=== PATIENT | female | born 1950 | race Caucasian/White ===

== ENCOUNTER → 2016-05-31 | Outpatient (REF) | payer MEDICARE, OTHER ==
[~2016-05-31] MED LIST: ACET500C; FISH1000 OR; FISHCAP; HYDR25TA6; HYDR25TA6 OR; LIDO5DIS; LIDO5DIS EX; LIPI20TA; LIPI20TA OR; LISI10TA4; LISI10TA4 OR; NEUR300C; NEUR300C OR; PAIN325T OR; PRED10TA2; SKEL800T5; SKEL800T5 OR; TYL325; TYLENOL PM; TYLENOL PM OR; VITA-56; VITA-56 OR; VITA200C; VITA500T; VITA500T OR; VITAMIN B; VITAMIN B COMPLE1; VITAMIN B COMPLE1 OR; [UNRECOGNIZED DRUG - OTHER]
[2016-05-31 13:05] LABS: ALBUMIN 4.1 GM/DL (3.2-5.2); ALBUMIN/GLOBULIN RATIO 1.52 (1.00-1.93); ALKALINE PHOSPHATASE 69 U/L (45-117); ALT/SGPT 32 U/L (12-78); ANION GAP 7 MEQ/L (8-16); AST/SGOT 23 U/L (15-37); BILIRUBIN,DIRECT < 0.1 MG/DL (0.0-0.2); BILIRUBIN,TOTAL 0.5 MG/DL (0.2-1.0); BLOOD UREA NITROGEN 14 MG/DL (7-18); CALCIUM LEVEL 9.6 MG/DL (8.8-10.2); CARBON DIOXIDE LEVEL 29 MEQ/L (21-32); CHLORIDE LEVEL 101 MEQ/L (98-107); CREATININE FOR GFR 0.73 MG/DL (0.55-1.02); GLOMERULAR FILTRATION RATE > 60.0 (>45); GLUCOSE, FASTING 122 MG/DL (80-110); PHOSPHORUS LEVEL 3.2 MG/DL (2.5-4.9); POTASSIUM SERUM 4.7 MEQ/L (3.5-5.1); SODIUM LEVEL 137 MEQ/L (136-145); TOTAL PROTEIN 6.8 GM/DL (6.4-8.2)
== END ==
LOC: M LABDRAW1 11:48
PROVIDERS: ATTEND Physician Assistant
DX: M51.36 Other intervertebral disc degeneration, lumbar region (principal)

== ENCOUNTER → 2016-08-05 | Outpatient (REF) | payer OTHER, MEDICARE ==
[2016-08-05 15:09] LABS: ANION GAP 6 MEQ/L (8-16); BLOOD UREA NITROGEN 14 MG/DL (7-18); CALCIUM LEVEL 9.7 MG/DL (8.8-10.2); CARBON DIOXIDE LEVEL 31 MEQ/L (21-32); CHLORIDE LEVEL 103 MEQ/L (98-107); CREATININE FOR GFR 0.75 MG/DL (0.55-1.02); GLOMERULAR FILTRATION RATE > 60.0 (>45); GLUCOSE, FASTING 116 MG/DL (80-110); POTASSIUM SERUM 3.8 MEQ/L (3.5-5.1); SODIUM LEVEL 140 MEQ/L (136-145)
[2016-08-05 15:10] LABS: ALBUMIN 3.9 GM/DL (3.2-5.2); ALBUMIN/GLOBULIN RATIO 1.34 (1.00-1.93); ALKALINE PHOSPHATASE 83 U/L (45-117); ALT/SGPT 40 U/L (12-78); AST/SGOT 28 U/L (15-37); BILIRUBIN,TOTAL 0.8 MG/DL (0.2-1.0); CHOLESTEROL LEVEL 190 MG/DL (<200); TOTAL PROTEIN 6.8 GM/DL (6.4-8.2); TRIGLYCERIDES LEVEL 121 MG/DL (<150)
[2016-08-05 15:11] LABS: FERRITIN 79 NG/ML (8-252); FREE T4 1.14 NG/DL (0.76-1.46); PERCENT SATURATION 36.9 % (13.2-37.4); TOTAL IRON BINDING CAPACITY 366 UG/DL (250-450)
== END ==
LOC: M SFHCPLAZ 09:23
PROVIDERS: ATTEND Family Medicine
DX: E78.2 Mixed hyperlipidemia (principal); E53.8 Deficiency of other specified B group vitamins; E55.9 Vitamin D deficiency, unspecified; G31.84 Mild cognitive impairment of uncertain or unknown etiology

== ENCOUNTER → 2016-08-14 | Outpatient (CLI) | payer MEDICARE, OTHER ==
--- NOTE | 2016-08-16 10:00 | REP ---
MRI BRAIN: REASON: Forgetfulness. PRIORS: None. TECHNIQUE: Sagittal T1. Axial T2, FLAIR, DWI and ADC. FINDINGS: The craniocervical junction is normal. There is no cerebellar tonsillar ectopia. The visualized portions of the spinal cord and neural canal are within normal limits. The ventricles and sulci are within normal limits for the patient's age. There are no extra-axial fluid collections. There is o shift of the midline structures. The deep cerebral white matter is within normal limits. Diffusion weighted images and ADC mapping shows no signal abnormality. The orbital and petrous structures, cerebellopontine angles, and posterior fossa are within normal limits. The sella turcica, cavernous and paracavernous structures are within normal limits. There is T2 hypersignal seen in the left mastoid air cells. The right mastoid air cells are clear. The imaged paranasal sinuses are within normal limits. IMPRESSION: 1. There is evidence of left-sided mastoiditis, which needs to be correlated clinically. 2. The examination is otherwise unremarkable. Signed by Ceasar Sharma DO 08/16/2016 10:42 A
== END ==
LOC: M RAD 08:43
PROVIDERS: ATTEND Family Medicine
DX: H70.92 Unspecified mastoiditis, left ear (principal)

== ENCOUNTER → 2016-11-05 | Outpatient (CLI) | payer OTHER, MEDICARE ==
--- NOTE | 2016-11-05 14:34 | REP ---
LEFT RIB SERIES: Five views including PA chest radiograph. HISTORY: Rib injury. Comparison left rib radiographs are from April 03, 2013. FINDINGS: There is an old healed fracture of the anterior end of the 6th rib. No other rib fracture is seen. No bony destructive lesion is seen. PA chest radiograph shows clear well inflated lungs and sharp pleural angles. Cardiomediastinal silhouette is unremarkable. The aorta is tortuous. There are clips in right upper quadrant. IMPRESSION: No acute rib fracture seen. Old left anterior 6th rib fracture is healed and unchanged. Signed by Neymar Das MD 11/05/2016 04:37 P
== END ==
LOC: M WUC 12:09
PROVIDERS: ATTEND Physician Assistant
DX: S20.212A Contusion of left front wall of thorax, initial encounter (principal); X58.XXXA Exposure to other specified factors, initial encounter; Y92.89 Other specified places as the place of occurrence of the external cause; Y93.89 Activity, other specified; Y99.8 Other external cause status

== ENCOUNTER → 2016-12-14 | Outpatient (CLI) | payer MEDICARE, OTHER ==
--- NOTE | 2016-12-16 21:29 | SLEEPHOME ---
DATE OF PROCEDURE: 12/14/2016 ORDERED BY: Dr. Hayes Diagnostic home sleep testing was performed due to concern for the obstructive sleep apnea syndrome. For testing, a NOX-T3 respiratory monitoring device was used. Continuous record was made of pulse, oxygen saturation, air flow, chest and abdominal strain and body position. 11 hours and 59 minutes of data were reviewed. Of these, 9 hours and 58 minutes were marked as time in bed. During the interval marked time in bed, there were 99 respiratory events identified of 10 seconds in duration or greater for a respiratory event index of 9.9. The events were obstructive, more frequent but not exclusive to the supine posture. Baseline pulse rate 57 beats per minute. Pulse rate ranged 46 to 107. Baseline saturation 92%. Lowest oxygen saturation 83%. Testing was performed in both the supine and nonsupine positions. IMPRESSION: Abnormal home sleep testing with repetitive respiratory events and oxygen desaturation to 83% with a respiratory event index of 9.9 is consistent with the obstructive sleep apnea syndrome. RECOMMENDATION: Given the significant oxygen desaturations, referral for formal sleep evaluation and in laboratory pressure titration are recommended as variable home devices do not accommodate for oxygen desaturation.
== END ==
LOC: M SLEEP HO 09:39
PROVIDERS: ATTEND Family Medicine
DX: G31.84 Mild cognitive impairment of uncertain or unknown etiology (principal)

== ENCOUNTER → 2017-01-28 | Outpatient (REF) | payer MEDICARE, OTHER ==
[2017-01-28 14:35] LABS: ALBUMIN 4.2 GM/DL (3.2-5.2); ALBUMIN/GLOBULIN RATIO 1.75 (1.00-1.93); ALKALINE PHOSPHATASE 77 U/L (45-117); ALT/SGPT 29 U/L (12-78); ANION GAP 6 MEQ/L (8-16); AST/SGOT 27 U/L (7-37); BILIRUBIN,TOTAL 0.6 MG/DL (0.2-1.0); BLOOD UREA NITROGEN 20 MG/DL (7-18); CALCIUM LEVEL 9.4 MG/DL (8.8-10.2); CARBON DIOXIDE LEVEL 32 MEQ/L (21-32); CHLORIDE LEVEL 102 MEQ/L (98-107); CREATININE FOR GFR 0.79 MG/DL (0.55-1.02); GLOMERULAR FILTRATION RATE > 60.0 (>45); GLUCOSE, FASTING 88 MG/DL (80-110); POTASSIUM SERUM 4.5 MEQ/L (3.5-5.1); SODIUM LEVEL 140 MEQ/L (136-145); TOTAL PROTEIN 6.6 GM/DL (6.4-8.2)
[2017-01-28 15:30] LABS: VITAMIN B12 LEVEL 1007 PG/ML (247-911)
== END ==
LOC: M SFHCPLAZ 08:52
PROVIDERS: ATTEND Family Medicine
DX: E53.8 Deficiency of other specified B group vitamins (principal); E55.9 Vitamin D deficiency, unspecified; R73.01 Impaired fasting glucose; G31.84 Mild cognitive impairment of uncertain or unknown etiology

== ENCOUNTER → 2017-02-01 | Outpatient (REF) | payer MEDICARE, OTHER ==
[2017-02-01 12:27] LABS: BASO % 0.5 % (0.0-1.0); EOS # 0.3 10^3/uL (0.0-0.50); EOS % 4.8 % (0.0-3.0); IMMATURE GRANULOCYTE % 0.2 % (0-0); LYMPH # 1.6 10^3/uL (1.5-4.5); LYMPH % 27.4 % (24.0-44.0); MEAN CORPUSCULAR HEMOGLOBIN 31.9 pg (27.0-33.0); MEAN CORPUSCULAR VOLUME 91.3 fl (80.0-96.0); MONO # 0.5 10^3/uL (0.0-0.8); MONO % 8.6 % (0.0-5.0); NEUTROPHILS # 3.4 10^3/uL (1.8-7.7); NEUTROPHILS % 58.5 % (36.0-66.0); PLATELET COUNT, AUTOMATED 208 10^3/uL (150-450); RED CELL DISTRIBUTION WIDTH 12.6 % (11.5-14.5); WHITE BLOOD COUNT 5.8 10^3/uL (4.0-10.0)
== END ==
LOC: M SFHCPLAZ 11:54
PROVIDERS: ATTEND Family Medicine
DX: E55.9 Vitamin D deficiency, unspecified (principal); R73.01 Impaired fasting glucose; E53.8 Deficiency of other specified B group vitamins; G31.84 Mild cognitive impairment of uncertain or unknown etiology

== ENCOUNTER → 2017-02-01 | Outpatient (CLI) | payer MEDICARE, OTHER ==
--- NOTE | 2017-02-01 10:05 | REPMRS ---
Patient History The patient states she had a clinical breast exam in 11/14 Patient is postmenopausal. Family history of breast cancer in paternal grandmother at age 75. Digital Woman Screen Mammo: February 01, 2017 - Exam #: [id number] Bilateral CC and MLO view(s) were taken. Technologist: Teri Sorto, Technologist Prior study comparison: December 24, 2015, digital woman screen mammo performed at [facility]. January 22, 2015, digital woman screen mammo performed at [facility]. FINDINGS: There are scattered fibroglandular densities. There has been no change in the appearance of the mammogram from the prior studies. There is a mild amount of residual fibroglandular tissue which is fairly symmetric. There is no interval development of dominant mass, architectural distortion, or clustered microcalcification suggestive of malignancy. There are scattered, small, benign calcifications of doubtful clinical significance. Large coarse benign appearing calcifications are present. Scattered lymph nodes are seen in the axillae. No significant changes when compared with prior studies. ASSESSMENT: BI-RADS/ACR category 2 mammogram. Benign finding(s). Recommendation Routine screening mammogram in 1 year (for women over age 40). This mammogram was interpreted with the aid of an FDA-approved computer-aided dectection system. A. Negative x-ray reports should not delay biopsy if a dominant or clinically suspicious mass is present. B. Four to eight percent of cancers are not identified by mammography. C. Adenosis and dense breast may obscure an underlying neoplasm. Electronically Signed By: Jason Louis MD 02/01/17 [id number]
== END ==
LOC: M WHC 08:21
PROVIDERS: ATTEND Family Medicine
DX: Z12.31 Encounter for screening mammogram for malignant neoplasm of breast (principal); Z78.0 Asymptomatic menopausal state; E55.9 Vitamin D deficiency, unspecified; R73.01 Impaired fasting glucose; E53.8 Deficiency of other specified B group vitamins; G31.84 Mild cognitive impairment of uncertain or unknown etiology
CPT/HCPCS: 84207; 85025; G0202

== ENCOUNTER → 2017-02-08 | Outpatient (REF) | payer MEDICARE, OTHER | LOC: M SFHCPLAZ 14:43 | PROVIDERS: ATTEND Family Medicine | DX: G31.84 Mild cognitive impairment of uncertain or unknown etiology (principal); G47.33 Obstructive sleep apnea (adult) (pediatric); E53.8 Deficiency of other specified B group vitamins; E78.2 Mixed hyperlipidemia; I10 Essential (primary) hypertension; E55.9 Vitamin D deficiency, unspecified; R73.01 Impaired fasting glucose; M85.80 Other specified disorders of bone density and structure, unspecified site; M47.26 Other spondylosis with radiculopathy, lumbar region; Z79.899 Other long term (current) drug therapy ==

== ENCOUNTER → 2017-08-17 | Outpatient (CLI) | payer MEDICARE, OTHER | LOC: M SLEEP 19:14 | DX: G47.33 Obstructive sleep apnea (adult) (pediatric) (principal) | CPT/HCPCS: 95811 ==

== ENCOUNTER → 2017-10-25 | Outpatient (REF) | payer MEDICARE, OTHER ==
[2017-10-25 17:46] LABS: BASO # 0.1 10^3/uL (0.0-0.2); BASO % 0.7 % (0.0-1.0); EOS # 0.5 10^3/uL (0.0-0.50); EOS % 6.3 % (0.0-3.0); HEMATOCRIT 45.6 % (36.0-47.0); HEMOGLOBIN 15.5 g/dl (12.0-15.5); IMMATURE GRANULOCYTE % 0.2 % (0-3.0); LYMPH # 1.8 10^3/uL (1.5-4.5); MEAN CORPUSCULAR VOLUME 91.2 fl (80.0-96.0); MONO # 0.8 10^3/uL (0.0-0.8); MONO % 9.3 % (0.0-5.0); NEUTROPHILS # 5.3 10^3/uL (1.8-7.7); NEUTROPHILS % 62.5 % (36.0-66.0); PLATELET COUNT, AUTOMATED 230 10^3/uL (150-450); RETIC HEMOGLOBIN EQUIVALENT 35.6 pg (24-36); RETICULOCYTE % 2.2 % (0.5-1.5); WHITE BLOOD COUNT 8.5 10^3/uL (4.0-10.0)
[2017-10-25 17:57] LABS: ESTIMATED AVERAGE GLUCOSE 126 MG/DL (60-110)
[2017-10-25 18:03] LABS: ALBUMIN 4.2 GM/DL (3.2-5.2); ALKALINE PHOSPHATASE 100 U/L (45-117); ALT/SGPT 46 U/L (12-78); ANION GAP 7 MEQ/L (8-16); AST/SGOT 35 U/L (7-37); BILIRUBIN,TOTAL 0.6 MG/DL (0.2-1.0); BLOOD UREA NITROGEN 20 MG/DL (7-18); C REACTIVE PROTEIN QUANTITATIV < 0.30 MG/DL (0.00-0.30); CALCIUM LEVEL 9.4 MG/DL (8.8-10.2); CARBON DIOXIDE LEVEL 31 MEQ/L (21-32); CHLORIDE LEVEL 106 MEQ/L (98-107); CHOLESTEROL LEVEL 168 MG/DL (<200); CHOLESTEROL RISK RATIO 3.818 (<5); CPK CREATINE PHOSPHOKINASE 613 U/L (26-192); CREATININE FOR GFR 0.88 MG/DL (0.55-1.30); FREE T4 0.97 NG/DL (0.76-1.46); GLOMERULAR FILTRATION RATE > 60.0 (>45); GLUCOSE, FASTING 121 MG/DL (70-100); HDL CHOLESTEROL 44 MG/DL (>40); LDL CHOLESTEROL 46.6 MG/DL (<100); NON-HDL-C 124 MG/DL; POTASSIUM SERUM 4.5 MEQ/L (3.5-5.1); SODIUM LEVEL 144 MEQ/L (136-145); TOTAL PROTEIN 7.2 GM/DL (6.4-8.2); TRIGLYCERIDES LEVEL 387 MG/DL (<150)
[2017-10-27 14:18] LABS: INSULIN LEVEL 69.5 uIU/mL (2.6-24.9)
== END ==
LOC: M SFHCPLAZ 12:35
DX: E78.2 Mixed hyperlipidemia (principal); R73.01 Impaired fasting glucose; E53.8 Deficiency of other specified B group vitamins
CPT/HCPCS: 82550

== ENCOUNTER → 2018-02-02 | Outpatient (CLI) | payer MEDICARE, OTHER | LOC: M RAD 10:09 | DX: Z12.31 Encounter for screening mammogram for malignant neoplasm of breast (principal) | CPT/HCPCS: 77067 ==

== ENCOUNTER → 2018-03-14 | Outpatient (REF) | payer MEDICARE, OTHER ==
[2018-03-14 13:58] LABS: BASO % 0.6 % (0.0-1.0); EOS # 0.2 10^3/uL (0.0-0.50); EOS % 3.2 % (0.0-3.0); HEMATOCRIT 43.8 % (36.0-47.0); HEMOGLOBIN 14.8 g/dl (12.0-15.5); LYMPH # 1.4 10^3/uL (1.5-4.5); MEAN CORPUSCULAR HEMOGLOBIN 31.6 pg (27.0-33.0); MEAN CORPUSCULAR HGB CONC 33.8 g/dl (32.0-36.5); MEAN CORPUSCULAR VOLUME 93.6 fl (80.0-96.0); MONO # 0.5 10^3/uL (0.0-0.8); MONO % 8.5 % (0.0-5.0); NEUTROPHILS # 4.1 10^3/uL (1.8-7.7); NEUTROPHILS % 65.1 % (36.0-66.0); PLATELET COUNT, AUTOMATED 206 10^3/uL (150-450); RED BLOOD COUNT 4.68 10^6/uL (4.00-5.40); WHITE BLOOD COUNT 6.3 10^3/uL (4.0-10.0)
[2018-03-14 14:11] LABS: ALBUMIN 4.1 GM/DL (3.2-5.2); ALT/SGPT 27 U/L (12-78); BILIRUBIN,TOTAL 0.6 MG/DL (0.2-1.0); BLOOD UREA NITROGEN 18 MG/DL (7-18); CARBON DIOXIDE LEVEL 29 MEQ/L (21-32); CHLORIDE LEVEL 104 MEQ/L (98-107); CREATININE FOR GFR 0.68 MG/DL (0.55-1.30); GLOMERULAR FILTRATION RATE > 60.0 (>45); GLUCOSE, FASTING 107 MG/DL (70-100); POTASSIUM SERUM 4.2 MEQ/L (3.5-5.1); RHEUMATOID FACTOR QUANT < 10.0 IU/ML (<15.0); SODIUM LEVEL 139 MEQ/L (136-145); TOTAL PROTEIN 6.8 GM/DL (6.4-8.2)
[2018-03-14 14:23] LABS: ERYTHROCYTE SEDIMENTATION RATE 4 mm/hr (0-30)
[2018-03-14 14:49] LABS: VITAMIN B12 LEVEL 538 PG/ML (247-911)
[2018-03-15 17:34] LABS: FOLATE 12.8 NG/ML (>5.4)
[2018-03-16 11:16] LABS: ALBUMIN 4.13 GM/DL (3.29-5.55); ALBUMIN % 60.8 % (55.8-66.1); ALPHA-1-GLOBULIN % 4.4 % (2.9-4.9); ALPHA-2-GLOBULINS 0.78 GM/DL (0.42-0.99); ALPHA-2-GLOBULINS % 11.4 % (7.1-11.8); BETA-1-GLOBULINS 0.48 GM/DL (0.28-0.60); BETA-2-GLOBULINS 0.34 GM/DL (0.19-0.55); GAMMA GLOBULIN % 11.4 % (11.1-18.8); GAMMA GLOBULINS 0.78 GM/DL (0.65-1.58)
[2018-03-18 00:06] LABS: ANTI DOUBLE STRAND-DNA AB <1 IU/mL (0-9); ANTINUCLEAR ANTIBODIES DIRECT Negative (Negative); CERULOPLASMIN 22.9 mg/dL (19.0-39.0); COPPER PLASMA 98 ug/dL (72-166); LEAD BLOOD ADULT 2 ug/dL (0-4); Lyme Disease IgG/IgM Antibodie <0.91 ISR (0.00-0.90); Lyme Disease IgM Ab Quantitati <0.80 index (0.00-0.79); MERCURY LEVEL None Detected ug/L (0.0-14.9); SJOGREN'S ANTI SS-A <0.2 AI (0.0-0.9); SJOGREN'S ANTI SS-B <0.2 AI (0.0-0.9); VITAMIN B1 LEVEL WHOLE BLOOD 130.7 nmol/L (66.5-200.0); VITAMIN B6,PYRIDOXAL PHOSPHATE 4.1 ug/L (2.0-32.8); VITAMIN E(ALPHA TOCOPHEROL) 13.6 mg/L (9.0-29.0); VITAMIN E(GAMMA TOCOPHEROL) 1.5 mg/L (0.5-4.9)
[2018-03-21 09:08] LABS: DRVV SCREEN 39.1 SEC
[2018-03-21 09:13] LABS: PTT LUPUS TYPE ANTICOAG SCREEN 0.9 (0-1.2)
== END ==
LOC: M LABNEURO 10:30
PROVIDERS: ATTEND Psychiatry & Neurology Neurology
DX: F09 Unspecified mental disorder due to known physiological condition (principal)

== ENCOUNTER → 2018-06-08 | Outpatient (REF) | payer MEDICARE, OTHER ==
[2018-06-08 13:34] LABS: ALBUMIN 4.3 GM/DL (3.2-5.2); ALT/SGPT 33 U/L (12-78); BILIRUBIN,TOTAL 0.8 MG/DL (0.2-1.0); BLOOD UREA NITROGEN 17 MG/DL (7-18); CALCIUM LEVEL 9.3 MG/DL (8.8-10.2); CARBON DIOXIDE LEVEL 28 MEQ/L (21-32); CHLORIDE LEVEL 109 MEQ/L (98-107); CPK CREATINE PHOSPHOKINASE 261 U/L (26-192); CREATININE FOR GFR 0.75 MG/DL (0.55-1.30); GLOMERULAR FILTRATION RATE > 60.0 (>45); GLUCOSE, FASTING 112 MG/DL (70-100); POTASSIUM SERUM 4.1 MEQ/L (3.5-5.1); SODIUM LEVEL 142 MEQ/L (136-145); TOTAL PROTEIN 7.1 GM/DL (6.4-8.2)
[2018-06-08 13:42] LABS: PTH INTACT 65.4 PG/ML (18.5-88.0); TOTAL 25(OH) VITAMIN D 26.1 NG/ML (30.0-100.0)
[2018-06-08 13:43] LABS: VITAMIN B12 LEVEL 902 PG/ML (247-911)
[2018-06-08 13:49] LABS: HEMOGLOBIN A1c 5.7 %
== END ==
LOC: M SFHCPLAZ 10:15
PROVIDERS: ATTEND Family Medicine
DX: E78.2 Mixed hyperlipidemia (principal); R73.01 Impaired fasting glucose; E55.9 Vitamin D deficiency, unspecified; E53.8 Deficiency of other specified B group vitamins
CPT/HCPCS: 36415; 80053; 82306; 82550; 82607; 83036; 83525; 83970; G0463

== ENCOUNTER → 2018-10-31 | Outpatient (REF) | payer MEDICARE, OTHER ==
[2018-10-31 14:14] LABS: APPEARANCE, URINE CLEAR (CLEAR); BACTERIA, URINE AUTO NEGATIVE (NEGATIVE); BILIRUBIN, URINE AUTO NEGATIVE (NEGATIVE); BLOOD, URINE BLOOD 1+ (NEGATIVE); COLOR, URINE STRAW (YELLOW); GLUCOSE, URINE (UA) AUTO NEGATIVE (NEGATIVE); KETONE, URINE AUTO NEGATIVE (NEGATIVE); LEUKOCYTE ESTERASE, URINE AUTO NEGATIVE (NEGATIVE); MUCUS, URINE SMALL (NEGATIVE); NITRITE, URINE AUTO NEGATIVE (NEGATIVE); PROTEIN, URINE AUTO NEGATIVE (NEGATIVE); RBC, URINE AUTO 6 /HPF (0-3); SPECIFIC GRAVITY URINE AUTO 1.008 (1.002-1.035); SQUAMOUS EPITHELIAL CELL UR AU 0 /HPF (0-6); UROBILINOGEN, URINE AUTO 0.2 mg/dL (0.0-2.0); WBC, URINE AUTO 0 /HPF (0-3)
[2018-10-31 14:19] LABS: BASO # 0.1 10^3/uL (0.0-0.2); BASO % 1.2 % (0.0-1.0); EOS # 0.4 10^3/uL (0.0-0.5); EOS % 6.8 % (0.0-3.0); HEMATOCRIT 49.1 % (36.0-47.0); LYMPH # 1.4 10^3/uL (1.5-5.0); LYMPH % 23.2 % (24.0-44.0); MEAN CORPUSCULAR HEMOGLOBIN 31.9 pg (27.0-33.0); MEAN CORPUSCULAR HGB CONC 34.6 g/dl (32.0-36.5); MEAN CORPUSCULAR VOLUME 92.1 fl (80.0-96.0); MONO # 0.8 10^3/uL (0.0-0.8); MONO % 12.9 % (0.0-5.0); NEUTROPHILS # 3.4 10^3/uL (1.5-8.5); NEUTROPHILS % 55.4 % (36.0-66.0); PLATELET COUNT, AUTOMATED 196 10^3/uL (150-450); RED BLOOD COUNT 5.33 10^6/uL (4.00-5.40)
[2018-10-31 14:33] LABS: ALBUMIN 4.6 GM/DL (3.2-5.2); ALT/SGPT 45 U/L (12-78); BILIRUBIN,TOTAL 0.9 MG/DL (0.2-1.0); BLOOD UREA NITROGEN 13 MG/DL (7-18); C REACTIVE PROTEIN QUANTITATIV < 0.30 MG/DL (0.00-0.30); CARBON DIOXIDE LEVEL 30 MEQ/L (21-32); CHLORIDE LEVEL 105 MEQ/L (98-107); CHOLESTEROL LEVEL 245 MG/DL (<200); CPK CREATINE PHOSPHOKINASE 212 U/L (26-192); CREATININE FOR GFR 0.74 MG/DL (0.55-1.30); GLOMERULAR FILTRATION RATE > 60.0 (>45); GLUCOSE, FASTING 116 MG/DL (70-100); HDL CHOLESTEROL 50 MG/DL (>40); LDL CHOLESTEROL 152 MG/DL (<100); NON-HDL-C 195 MG/DL; POTASSIUM SERUM 4.3 MEQ/L (3.5-5.1); SODIUM LEVEL 140 MEQ/L (136-145); TOTAL PROTEIN 7.6 GM/DL (6.4-8.2); TRIGLYCERIDES LEVEL 213 MG/DL (<150)
[2018-10-31 14:54] LABS: CREATININE, URINE 25.8 MG/DL; MALB URINE SIEMENS 31.9 MG/L; MAU/CREAT RATIO 123.6 MCG/MG (0.0-30.0)
[2018-10-31 15:51] LABS: HEMOGLOBIN A1c 5.6 %
== END ==
LOC: M SFHCPLAZ 11:15
PROVIDERS: ATTEND Family Medicine
DX: E78.2 Mixed hyperlipidemia (principal); R73.01 Impaired fasting glucose
CPT/HCPCS: 36415; 80053; 80061; 81001; 82043; 82550; 83036; 85025; 86140; G0463

== ENCOUNTER → 2018-11-16 | Outpatient (CLI) | payer MEDICARE, OTHER ==
[2018-11-16 17:33] LABS: ALBUMIN 4.4 GM/DL (3.2-5.2); BLOOD UREA NITROGEN 16 MG/DL (7-18); CALCIUM LEVEL 9.7 MG/DL (8.8-10.2); CARBON DIOXIDE LEVEL 28 MEQ/L (21-32); CHLORIDE LEVEL 99 MEQ/L (98-107); CREATININE FOR GFR 0.86 MG/DL (0.55-1.30); GLOMERULAR FILTRATION RATE > 60.0 (>45); GLUCOSE, FASTING 168 MG/DL (70-100); MAGNESIUM LEVEL 1.9 MG/DL (1.8-2.4); PHOSPHORUS LEVEL 3.1 MG/DL (2.5-4.9); POTASSIUM SERUM 4.1 MEQ/L (3.5-5.1); SODIUM LEVEL 138 MEQ/L (136-145)
== END ==
LOC: M WUC 12:07
PROVIDERS: ATTEND Family Medicine
DX: I10 Essential (primary) hypertension (principal)

== ENCOUNTER → 2019-02-22 | Outpatient (CLI) | payer MEDICARE, OTHER ==
--- NOTE | 2019-02-22 16:28 | REPMRS ---
Patient History The patient states she had a clinical breast exam in January 2019.Family history of breast cancer at age 75 in paternal grandmother. 3D TOMOSYNTHESIS WAS PERFORMED. The Rufus Kelley lifetime risk for breast cancer is 3.2%. Digital Woman Screen Mammo: February 22, 2019 - Exam #: [id number] Bilateral CC and MLO view(s) were taken. Technologist: Humaira Umana, Technologist Prior study comparison: February 02, 2018, bilateral digital mammo screening bilat, performed at [facility]. February 01, 2017, digital woman screen mammo performed at [facility]. FINDINGS: There are scattered fibroglandular densities. There has been no change in the appearance of the mammogram from the prior studies. There is a mild amount of residual fibroglandular tissue which is fairly symmetric. There is no interval development of dominant mass, architectural distortion, or clustered microcalcification suggestive of malignancy. Assessment: BI-RADS/ACR category 1 mammogram. Negative Mammogram. Recommendation Routine screening mammogram in 1 year (for women over age 40). This mammogram was interpreted with the aid of an FDA-approved computer-aided dectection system. Electronically Signed By: Cristhian Blevins MD 02/22/19 [id number]
== END ==
LOC: M WHC 15:39
PROVIDERS: ATTEND Family Medicine
DX: Z12.31 Encounter for screening mammogram for malignant neoplasm of breast (principal); Z80.3 Family history of malignant neoplasm of breast

== ENCOUNTER → 2019-02-27 | Outpatient (CLI) | payer MEDICARE, OTHER ==
--- NOTE | 2019-02-27 10:38 | REP ---
Clinical: Left foot pain Technique: AP, lateral, bilateral oblique views left foot . Findings: Generalized age-related changes are appreciated. Lateral view demonstrates calcaneal heal spur. No acute fracture dislocation. Impression: Age-related changes. No acute fracture or dislocation. Electronically Signed by Chris Putnam MD 02/27/2019 10:30 A
--- NOTE | 2019-02-27 10:39 | REP ---
Clinical: Left ankle pain. Technique: AP, lateral, bilateral oblique views of the left ankle. Findings: Lateral swelling. Osseous structures and joint spaces demonstrate generalized age-related changes. No acute fracture or dislocation. Calcaneal heal spur noted. Impression: Generalized age-related changes. Lateral swelling. Electronically Signed by Chris Putnam MD 02/27/2019 10:30 A
== END ==
LOC: M WUC 10:02
PROVIDERS: ATTEND Physician Assistant
DX: M25.572 Pain in left ankle and joints of left foot (principal)

== ENCOUNTER → 2019-03-20 | Outpatient (REF) | payer MEDICARE, OTHER ==
[2019-03-20 15:51] LABS: BASO % 0.5 % (0.0-1.0); EOS # 0.1 10^3/uL (0.0-0.5); EOS % 1.7 % (0.0-3.0); HEMOGLOBIN 14.4 g/dl (12.0-15.5); LYMPH # 1.5 10^3/uL (1.5-5.0); LYMPH % 19.9 % (24.0-44.0); MEAN CORPUSCULAR HEMOGLOBIN 31.2 pg (27.0-33.0); MEAN CORPUSCULAR HGB CONC 32.7 g/dl (32.0-36.5); MEAN CORPUSCULAR VOLUME 95.2 fl (80.0-96.0); MONO # 0.8 10^3/uL (0.0-0.8); MONO % 9.9 % (0.0-5.0); NEUTROPHILS # 5.1 10^3/uL (1.5-8.5); NEUTROPHILS % 67.5 % (36.0-66.0); PLATELET COUNT, AUTOMATED 219 10^3/uL (150-450); RED BLOOD COUNT 4.62 10^6/uL (4.00-5.40); WHITE BLOOD COUNT 7.6 10^3/uL (4.0-10.0)
[2019-03-20 15:54] LABS: ALBUMIN 3.7 GM/DL (3.2-5.2); ALT/SGPT 25 U/L (12-78); BILIRUBIN,TOTAL 0.4 MG/DL (0.2-1.0); BLOOD UREA NITROGEN 19 MG/DL (7-18); CALCIUM LEVEL 9.3 MG/DL (8.8-10.2); CARBON DIOXIDE LEVEL 29 MEQ/L (21-32); CHLORIDE LEVEL 106 MEQ/L (98-107); CREATININE FOR GFR 0.97 MG/DL (0.55-1.30); GLOMERULAR FILTRATION RATE > 60.0 (>45); GLUCOSE, FASTING 105 MG/DL (70-100); POTASSIUM SERUM 4.6 MEQ/L (3.5-5.1); SODIUM LEVEL 140 MEQ/L (136-145)
[2019-03-20 17:19] LABS: HEMOGLOBIN A1c 6.2 %
== END ==
LOC: M SFHCPLAZ 13:29
PROVIDERS: ATTEND Nurse Practitioner Family
DX: R73.01 Impaired fasting glucose (principal)

== ENCOUNTER → 2020-01-12 | Outpatient (CLI) | payer MEDICARE, OTHER ==
[2020-01-12 11:57] LABS: BASO % 0.5 % (0.0-1.0); EOS # 0.3 10^3/uL (0.0-0.5); HEMOGLOBIN 15.2 g/dl (12.0-15.5); LYMPH # 1.7 10^3/uL (1.5-5.0); LYMPH % 21.7 % (24.0-44.0); MEAN CORPUSCULAR HEMOGLOBIN 30.8 pg (27.0-33.0); MEAN CORPUSCULAR HGB CONC 32.3 g/dl (32.0-36.5); MEAN CORPUSCULAR VOLUME 95.1 fl (80.0-96.0); MONO # 0.8 10^3/uL (0.0-0.8); MONO % 10.9 % (0.0-5.0); NEUTROPHILS # 4.8 10^3/uL (1.5-8.5); NEUTROPHILS % 62.3 % (36.0-66.0); PLATELET COUNT, AUTOMATED 233 10^3/uL (150-450); RED BLOOD COUNT 4.94 10^6/uL (4.00-5.40); WHITE BLOOD COUNT 7.7 10^3/uL (4.0-10.0)
[2020-01-12 12:08] LABS: HEMOGLOBIN A1c 6.1 %
[2020-01-12 12:24] LABS: ALBUMIN 3.9 GM/DL (3.2-5.2); ALT/SGPT 32 U/L (12-78); BILIRUBIN,TOTAL 0.8 MG/DL (0.2-1.0); BLOOD UREA NITROGEN 13 MG/DL (7-18); CALCIUM LEVEL 9.4 MG/DL (8.8-10.2); CARBON DIOXIDE LEVEL 31 MEQ/L (21-32); CHLORIDE LEVEL 98 MEQ/L (98-107); CREATININE FOR GFR 0.82 MG/DL (0.55-1.30); GLOMERULAR FILTRATION RATE > 60.0 (>39); GLUCOSE, FASTING 111 MG/DL (70-100); POTASSIUM SERUM 4.4 MEQ/L (3.5-5.1); SODIUM LEVEL 135 MEQ/L (136-145); TOTAL PROTEIN 6.8 GM/DL (6.4-8.2)
[2020-01-15 11:11] LABS: ALBUMIN 4.18 GM/DL (3.29-5.55); ALBUMIN % 61.5 % (55.8-66.1); ALPHA-1-GLOBULINS 0.27 GM/DL (0.17-0.41); ALPHA-2-GLOBULINS % 11.7 % (7.1-11.8); BETA-1-GLOBULINS 0.44 GM/DL (0.28-0.60); BETA-1-GLOBULINS % 6.5 % (4.7-7.2); BETA-2-GLOBULINS 0.33 GM/DL (0.19-0.55); BETA-2-GLOBULINS % 4.8 % (3.2-6.5); GAMMA GLOBULIN % 11.5 % (11.1-18.8); GAMMA GLOBULINS 0.78 GM/DL (0.65-1.58)
== END ==
LOC: M WUC 07:38
PROVIDERS: ATTEND Family Medicine
DX: R73.01 Impaired fasting glucose (principal); E53.8 Deficiency of other specified B group vitamins

== ENCOUNTER → 2020-02-19 | Outpatient (CLI) | payer MEDICARE, OTHER ==
--- NOTE | 2020-02-19 16:19 | REP ---
INDICATION: BREAST CANCER SCREENING. Family history breast cancer age 75 paternal grandmother. COMPARISON: 02/22/2019 as well as other prior exams. TECHNIQUE: MLO and CC views bilateral breasts performed with tomosynthesis. FINDINGS: Mild scattered fibroglandular tissue is present. There appears to be new smoothly marginated 5 mm nodule in the upper inner right breast. This is only seen in the cc projection. No other mass is seen. There are no suspicious clusters of microcalcifications. There are coarse benign type calcifications bilaterally. The Volpara volumetric breast density pattern is A. IMPRESSION: BIRADS/ACR category 0 incomplete. New smoothly marginated 5 mm nodular density upper inner right breast only seen in the CC projection. Recommend spot compression right CC view and right mL tomographic sequence. Ultrasound may also be necessary. This patient's Tyrer-Cuzick lifetime breast cancer risk assessment score is 3.0%%. This mammogram was interpreted with the aid of an FDA-approved computer-aided detection system. The patient states she had a clinical breast exam in over 1 year ago. The patient letter being requested is M0. RECOMMENDATION: Additional views and ultrasound right breast as discussed above. <Electronically signed by Cristhian Blevins > 02/19/20 2561
== END ==
LOC: M WHC 14:13
PROVIDERS: ATTEND Family Medicine
DX: Z12.31 Encounter for screening mammogram for malignant neoplasm of breast (principal); N63.12 Unspecified lump in the right breast, upper inner quadrant

== ENCOUNTER → 2020-03-04 | Outpatient (REF) | payer MEDICARE, OTHER ==
[2020-03-05 10:40] LABS: APPEARANCE, URINE CLEAR (CLEAR); BACTERIA, URINE AUTO NEGATIVE (NEGATIVE); BILIRUBIN, URINE AUTO NEGATIVE (NEGATIVE); BLOOD, URINE BLOOD 2+ (NEGATIVE); COLOR, URINE YELLOW (YELLOW); GLUCOSE, URINE (UA) AUTO NEGATIVE (NEGATIVE); KETONE, URINE AUTO NEGATIVE (NEGATIVE); LEUKOCYTE ESTERASE, URINE AUTO NEGATIVE (NEGATIVE); MUCUS, URINE SMALL (NEGATIVE); NITRITE, URINE AUTO NEGATIVE (NEGATIVE); PROTEIN, URINE AUTO NEGATIVE (NEGATIVE); RBC, URINE AUTO 2 /HPF (0-3); SPECIFIC GRAVITY URINE AUTO 1.006 (1.002-1.035); SQUAMOUS EPITHELIAL CELL UR AU 0 /HPF (0-6); UROBILINOGEN, URINE AUTO 0.2 mg/dL (0.0-2.0); WBC, URINE AUTO 1 /HPF (0-3)
== END ==
LOC: M SFHCPLAZ 08:42
PROVIDERS: ATTEND Family Medicine
DX: R30.0 Dysuria (principal)

== ENCOUNTER → 2020-03-06 | Outpatient (CLI) | payer MEDICARE, OTHER ==
[~2020-03-06] MED LIST changes: +ATOR40TA75 PO; +DONE10TA90 PO; +HYDR25TAB PO; +LISI-538 PO; +NAMZ1CAP2 PO; +PARO5TAB PO
--- NOTE | 2020-03-06 16:39 | REP ---
INDICATION: ADDL VIEWS/RIGHT BREAST NODULAR DENSITY. COMPARISON: Mammogram 02/19/2020. TECHNIQUE: Spot compression views right breast including a tomographic sequence in the mL and CC projections. Focused right breast ultrasound performed of the upper inner aspect. FINDINGS: Once again, only in the CC projection, a subcentimeter nodule is seen. It may have slightly decreased in size compared to the prior mammogram. Diameter is approximately 4 mm. It appears fairly well-defined. Ultrasound of the upper inner right breast demonstrates a cyst with a thin septation in the right breast at 1 o'clock. This likely corresponds to the mammographic abnormality. This appears benign. It measures 3 mm in diameter. IMPRESSION: BIRADS/ACR category 2, benign. Well-defined 4 mm nodule upper inner right breast appears to correspond to a benign cyst by ultrasound. Follow-up mammogram is recommended in 1 year. This mammogram was interpreted with the aid of an FDA-approved computer-aided detection system. The patient letter being requested is M 1. RECOMMENDATION: Repeat screening mammography recommended 1 year (for women over 40). <Electronically signed by Cristhian Blevins > 03/06/20 3035
== END ==
LOC: M WHC 14:53
PROVIDERS: ATTEND Family Medicine
DX: Z12.31 Encounter for screening mammogram for malignant neoplasm of breast (principal); N63.12 Unspecified lump in the right breast, upper inner quadrant
CPT/HCPCS: 76642; 77065; G0279

== ENCOUNTER 2020-03-10 16:32 | Inpatient (IN) | payer MEDICARE, OTHER ==
[~2020-03-10] VITALS: Ht 160 cm; Wt 67.3 kg
[~2020-03-10 16:32] MED LIST changes: -ATOR40TA75 PO; -DONE10TA90 PO; -HYDR25TAB PO; -LISI-538 PO; -NAMZ1CAP2 PO; -PARO5TAB PO
--- OUTSIDE RECORDS SUMMARY | 2020-03-10 16:38 | CCD ---
Author Author [facility] Organization [facility] Address Unknown Phone Unavailable Care Team Providers Care Senior Safety Management Consultant Name Role Phone Neil Hayes Unavailable PROBLEMS Type Condition ICD9-CM Code [id number] Code Onset Dates Condition S tatus SNOMED Code Notes Problem Mixed hyperlipidemia E78.2 Active 711938155 Problem Essential (primary) hypertension I10 Active 61679772 Problem Breast cancer screening Z12.39 Active 36224530 8 Problem Vitamin D deficiency, unspecified E55.9 Active 96614046 Problem Osteoarthritis of spine with radiculopathy, lumbar region M47.26 Active 336583750 Problem B12 deficiency E53.8 Active 226817760 Problem KARLA (obstructive sleep apnea) G47.33 Active 78 402091 Problem Colon cancer screening Z12.11 Active 671408290 Problem Borderline osteopenia M85.80 Active 613100445 Problem Prurigo nodularis L28.1 Active 19002655 Problem IFG (impaired fasting glucose) R73.01 Active 3 65510504 Problem Non-seasonal allergic rhinitis, unspecified trigger J30.89 Active 10313882 Problem Rash R21 Active 805920799 Problem Alzheimer''s disease with late onset G30.1 Act humble 38466041 Problem ABHIJIT (generalized anxiety disorder) F41.1 Activ e 86138419 ALLERGIES Allergen (clinical drug ingredient) Drug/Non Drug Allergy do cumented on EMR Reaction Allergy Type Onset Date Status bees, bee wax swelling Non Drug Allergy Activ e influenza nausea/hives Non Drug Allergy Active aspirin Aspirin(NDC Code:[address]-57) tongue swells Drug Allergy Active risedronate Actonel(NDC Code:[address]-25) gi upset Drug Allergy Active Felodipine gi upset Drug Allergy Active Sulfa (for allergy use only) Rash Drug Allergy Active Penicillin (For Allergies Use Only) Hives Drug Allerg y Active ENCOUNTERS from 1950 to 2020-03-05 Encounter Location Date Provider Diagnosis [facility] [address] [place] [address] Feb, 021 Neil Hayes Dysuria R30.0 IMMUNIZATIONS Vaccine Route Administration Date Status Influenza (18 yrs & older) Flublok Unknown Feb 14, 2018 Refused SOCIAL HISTORY Tobacco Use: Social History Observation Description Date Details (start date - stop date) Former Smoker Sex Assigned At : Social History Observation Description Sex Assigned At Unknown Education: Question Answer Notes Level of Education: Not finished High School Language: Question Answer Notes Languages spoken: Latvian Yazdanism: Question Answer Notes Yazdanism 33 None No islam beliefs that would impact health care. Sexual Hx: Question Answer Notes Had sex in the last 12 months (vaginal, oral, or anal)? Yes Have you ever had an STD? No with Men only Use protection? No Alcohol Screening: Question Answer Notes Did you have a drink containing alcohol in the past year? Ye s Points 4 Interpretation Positive How often did you have six or more drinks on one occas ion in the past year? Never (0 points) How many drinks did you have on a typica l day when you were drinking in the past year? 3 or 4 (1 point) How often did you have a drink containing alcohol in t he past year? Two to three times per week (3 points) Tobacco Use: Question Answer Notes Are you a: former smoker How long has it been since you last smoked? > 10 years REASON FOR REFERRAL No Information VITAL SIGNS No information MEDICATIONS Medication SIG (Take, Route, Frequency, Duration) Notes Start Da te End Date Status Namzaric 28-10 MG 1 capsule in the evening Orally Once a day for 90 Active Vitamin D 5000 units 1 tablet by mouth Once a day for 90 day(s) Active Atorvastatin Calcium 40 MG 1 tablet Orally Once a day for 90 day(s) Active Namzaric 28-10 MG 1 capsule in the evening Orally Once a day for 90 day(s) Active Hydrochlorothiazide 25 mg 1 tablet Orally every morning for 90 day(s) Active Lisinopril 20 MG 1 tablet Orally bid for 90 Active Flonase 50 MCG/ACT 2 sprays in each nostril Nasally every m orning for 90 day(s) Active Cyanocobalamin 250 MCG 1 tablet Orally Once a day Active Multi Adult Gummies - as directed Orally Active Paroxetine HCl 10 MG 1 tablet in the morning Orally Once a day f or 90 day(s) Active PROCEDURES No Information RESULTS No Results REASON FOR VISIT U/A MEDICAL (GENERAL) HISTORY Type Description Date Medical History DJD lumbar spine with bilate ral lower extremity radiculopathy- March 2008 MRI with mild L4-L5 NF narrowing Medical History trochanteric bursitis/IT band syndrome, right Medical History overweight Medical History hypertension Medical History IFG Medical History hyperlipidemia 2B Medical History osteopenia Medical History 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 ultrasound-normal w orkup January 2006 Medical History junctional nevus with mild melanocytic a typia of umbilicus 1998 Medical History 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-[facility] Medical History left supraspinatus and subsc apularis and biceps tendinosis with full thickness distal supraspinatus tendon tear and subdeltoid bursitis and AC joint hypertrophy by 03/2011 MRI Medical History R knee moderate OA by 07/2012 xray Medical History KARLA, mild-11/2016 HST c ORA 10, SaO2 to 83% Medical History Alzheimer dementia, mild Surgical History colonoscopy-hemorroids, panlosis-Hunge in 07/18/09 Surgical History hysterectomy with BSO 1976 Surgical History cholecystecomy 2003 Hospitalization History none Goals Section No Information Health Concerns No Information MEDICAL EQUIPMENT No Information MENTAL STATUS No Information FUNCTIONAL STATUS No Information ASSESSMENTS Encounter Date Diagnosis Assessment Notes Treatment Notes Treatm ent Clinical Notes Feb, Dysuria (ICD-10 - R30.0) PLAN OF TREATMENT Medication Medication Name Sig Start Date Stop Date Flonase 50 MCG/ACT 2 sprays in each nostril Nasally every m orning for 90 day(s) Cyanocobalamin 250 MCG 1 tablet Orally Once a day Namzaric 28-10 MG 1 capsule in the evening Orally Once a day for 90 day(s) Hydrochlorothiazide 25 mg 1 tablet Orally every morning for 90 d ay(s) Lisinopril 20 MG 1 tablet Orally bid for 90 Paroxetine HCl 10 MG 1 tablet in the morning Orally Once a day f or 90 day(s) Atorvastatin Calcium 40 MG 1 tablet Orally Once a day for 90 day (s) Vitamin D 5000 units 1 tablet by mouth Once a day for 90 day(s) Treatment Notes Test Name Order Date URINE CULTURE 2020-03-05 UA URINALYSIS 2020-03-05 Insurance Providers Payer Name Payer Address Payer Phone Insured Name Patient Relati onship to Insured Coverage Start Date Coverage End Date [facility] [address] [address] [facility] [phone] [employer] MEDICARE Part A and B [address] [facility] [id number] [employer]ATH[employer] self
--- OUTSIDE RECORDS SUMMARY | 2020-03-10 16:38 | CCD | Continuity of Care Document ---
Author Author [facility] Organization Unknown Address [address] [place] [address] Phone [phone] Care Team Providers Care [facility] Former Name Role Phone Neil Hayes M.D. AUTM [phone] Problems Active Problems Provider Date Memory impairment Xochitl Akins M.D. Onset: 11/16/2018 Social History Type Date Description Comments Sex Unknown Allergies, Adverse Reactions, Alerts Description No Known Drug Allergies Medications Active Medications SIG Qnty Indications Ordering Provide r Date Xanax 0.5mg Tablets 1 tab 15 mins prior to the scan; may repeat 30 minutes later if still anxiuos 2tabs Xochitl Akins M.D. 03/16/2018 Namzaric 28-10mg Caps ER 24HR Unknown Immunizations Description No Information Available Vital Signs Date Vital Result Comment 04/18/2019 5:56am BP Systolic 122 mmHg BP Diastolic 80 mmHg Heart Rate 64 /min Respiratory Rate 16 /min Weight 150.00 lb 04/18/2019 5:53am BP Systolic 122 mmHg BP Diastolic 80 mmHg Heart Rate 64 /min Respiratory Rate 16 /min Results Description No Information Available Procedures Description No Information Available Medical Devices Description No Information Available Encounters Type Date Location Provider Dx Diagnosis Office Visit 09/17/2019 9:30a Main office - [place] Iman savage P.A.-C. F02.81 Dementia in oth diseases classd elswhr w behavioral disturb F41.1 Generalized anxiety disorder Assessments Date Code Description Provider 12/18/2019 F02.81 Dementia in other di seases classified elsewhere with behavioral disturbance Iman Cartwright P.A.-C. 12/18/2019 F41.1 Generalized anxiety disorder Tayler Cartwright P.A.-C. 09/17/2019 F02.81 Dementia in other di seases classified elsewhere with behavioral disturbance Iman Cartwright P.A.-C. 09/17/2019 F41.1 Generalized anxiety disorder Tayler Cartwright P.A.-C. Plan of Treatment No Information Available Functional Status Description No Information Available Mental Status Description No Information Available Referrals Description No Information Available
--- OUTSIDE RECORDS SUMMARY | 2020-03-10 16:38 | CCD | Continuity of Care Document ---
Author Author [facility] Organization Unknown Address [address] [place] [id number] Phone [phone] Care Team Providers Care Sterile Preparation Technician Name Role Phone Neil Hayes M.D. AUTM [phone] Problems Active Problems Provider Date Memory impairment [...] Available Vital Signs Date Vital Result Comment 12/18/2019 6:29am BP Systolic 140 mmHg BP Diastolic 90 mmHg Heart Rate 84 /min Respiratory Rate 16 /min 04/18/2019 5:56am BP Systolic 122 mmHg BP Diastolic 80 mmHg Heart Rate 64 /min Respiratory Rate 16 /min Weight 150.00 lb Results Description No Information Available Procedures Description No Information Available Medical Devices Description No Information Available Encounters Type Date Location Provider Dx Diagnosis Office Visit 12/18/2019 8:00a Main office - [place] Anthony Hadley.KatieC. F02.81 Dementia in oth diseases classd elswhr w behavioral disturb F41.1 Generalized anxiety disorder Office Visit 09/17/2019 9:30a Main office - [place] Anthony Hadley.KatieC. F02.81 Dementia in oth diseases classd elswhr [...] disorder Tayler Cartwright P.A.-C. Plan of Treatment Future Appointment(s):* 03/19/2020 8:15 am - Iman Cartwright P.A.-C. at Main office - [place] Functional Status Description No Information Available Mental Status Description No Information Available Referrals Description No Information Available
--- OUTSIDE RECORDS SUMMARY | 2020-03-10 16:38 | CCD ---
Author Author [facility] Organization [facility] Address Unknown Phone Unavailable Care Team Providers Care Drug Room Clerk Name Role Phone DRAZEK, I TERESA PA Unavailable Unavailable DRAZEK, I TERESA PA Unavailable Unavailable DRAZEK, I TERESA PA Unavailable Unavailable DRAZEK, I TERESA PA Unavailable Unavailable DRAZEK, I TERESA PA Unavailable Unavailable DRAZEK, I TERESA PA Unavailable Unavailable DRAZEK, I TERESA PA Unavailable Unavailable DRAZEK, I TERESA PA Unavailable Unavailable DRAZEK, I TERESA PA Unavailable Unavailable DRAZEK, I TERESA PA Unavailable Unavailable DRAZEK, I TERESA PA Unavailable Unavailable DRAZEK, I TERESA PA Unavailable Unavailable DRAZEK, I TERESA PA Unavailable Unavailable DRAZEK, I TERESA PA Unavailable Unavailable DRAZEK, I TERESA PA Unavailable Unavailable DRAZEK, I TERESA PA Unavailable Unavailable DRAZEK, I TERESA PA Unavailable Unavailable DRAZEK, I TERESA PA Unavailable Unavailable DRAZEK, I TERESA PA Unavailable Unavailable DRAZEK, I TERESA PA Unavailable Unavailable DRAZEK, I TERESA PA Unavailable Unavailable DRAZEK, I TERESA PA Unavailable Unavailable DRAZEK, I TERESA PA Unavailable Unavailable DRAZEK, I TERESA PA Unavailable Unavailable DRAZEK, I TERESA PA Unavailable Unavailable DRAZEK, I TERESA PA Unavailable Unavailable DRAZEK, I TERESA PA Unavailable Unavailable DRAZEK, I TERESA PA Unavailable Unavailable DRAZEK, I TERESA PA Unavailable Unavailable DRAZEK, I TERESA PA Unavailable Unavailable Trickey, J Iman PA Unavailable Unavailable Trickey, J Iman PA Unavailable Unavailable Trickey, J Iman PA Unavailable Unavailable Trickey, J Iman PA Unavailable Unavailable Trickey, J Iman PA Unavailable Unavailable Trickey, J Iman PA Unavailable Unavailable Trickey, J Iman PA Unavailable Unavailable Trickey, J Iman PA Unavailable Unavailable Trickey, J Iman PA Unavailable Unavailable Trickey, J Iman PA Unavailable Unavailable Trickey, J Iman PA Unavailable Unavailable Trickey, J Iman PA Unavailable Unavailable Trickey, J Iman PA Unavailable Unavailable Trickey, J Iman PA Unavailable Unavailable Trickey, J Iman PA Unavailable Unavailable Trickey, J Iman PA Unavailable Unavailable Trickey, J Iman PA Unavailable Unavailable Trickey, J Iman PA Unavailable Unavailable Trickey, J Iman PA Unavailable Unavailable Trickey, J Iman PA Unavailable Unavailable Trickey, J Iman PA Unavailable Unavailable Trickey, J Iman PA Unavailable Unavailable Trickey, J Iman PA Unavailable Unavailable Trickey, J Iman PA Unavailable Unavailable Trickey, J Iman PA Unavailable Unavailable Trickey, J Iman PA Unavailable Unavailable Trickey, J Iman PA Unavailable Unavailable Trickey, J Iman PA Unavailable Unavailable Trickey, J Iman PA Unavailable Unavailable Trickey, J Iman PA Unavailable Unavailable Trickey, J Iman PA Unavailable Unavailable Trickey, J Iman PA Unavailable Unavailable Trickey, J Iman PA Unavailable Unavailable Trickey, J Iman PA Unavailable Unavailable Trickey, J Iman PA Unavailable Unavailable Trickey, J Iman PA Unavailable Unavailable Trickey, J Iman PA Unavailable Unavailable Trickey, J Iman PA Unavailable Unavailable Trickey, J Iman PA Unavailable Unavailable Trickey, J Iman PA Unavailable Unavailable Trickey, J Iman PA Unavailable Unavailable Trickey, J Iman PA Unavailable Unavailable Trickey, J Iman PA Unavailable Unavailable Trickey, J Iman PA Unavailable Unavailable Trickey, J Iman PA Unavailable Unavailable Trickey, J Iman PA Unavailable Unavailable Trickey, J Iman PA Unavailable Unavailable Trickey, J Iman PA Unavailable Unavailable Trickey, J Iman PA Unavailable Unavailable Trickey, J Iman PA Unavailable Unavailable Trickey, J Iman PA Unavailable Unavailable Trickey, J Iman PA Unavailable Unavailable Whitten, Ghazala ROTARY PEEL OVEN TENDER Unavailable Unavailable Whitten, Ghazala ROTARY PEEL OVEN TENDER Unavailable Unavailable Whitten, Ghazala ROTARY PEEL OVEN TENDER Unavailable Unavailable Whitten, Ghazala ROTARY PEEL OVEN TENDER Unavailable Unavailable Whitten, Ghazala ROTARY PEEL OVEN TENDER Unavailable Unavailable Whitten, Ghazala ROTARY PEEL OVEN TENDER Unavailable Unavailable Whitten, Ghazala ROTARY PEEL OVEN TENDER Unavailable Unavailable Whitten, Ghazala ROTARY PEEL OVEN TENDER Unavailable Unavailable Whitten, Ghazala ROTARY PEEL OVEN TENDER Unavailable Unavailable Whitten, Ghazala ROTARY PEEL OVEN TENDER Unavailable Unavailable Whitten, Ghazala ROTARY PEEL OVEN TENDER Unavailable Unavailable LETTIERE, A EUGENE PA Unavailable Unavailable LETTIERE, A EUGENE PA Unavailable Unavailable LETTIERE, A EUGENE PA Unavailable Unavailable LETTIERE, A EUGENE PA Unavailable Unavailable LETTIERE, A EUGENE PA Unavailable Unavailable LETTIERE, A EUGENE PA Unavailable Unavailable LETTIERE, A EUGENE PA Unavailable Unavailable LETTIERE, A EUGENE PA Unavailable Unavailable LETTIERE, A EUGENE PA Unavailable Unavailable LETTIERE, A EUGENE PA Unavailable Unavailable LETTIERE, A EUGENE PA Unavailable Unavailable LETTIERE, A EUGENE PA Unavailable Unavailable LETTIERE, A EUGENE PA Unavailable Unavailable LETTIERE, A EUGENE PA Unavailable Unavailable LETTIERE, A EUGENE PA Unavailable Unavailable LETTIERE, A EUGENE PA Unavailable Unavailable LETTIERE, A EUGENE PA Unavailable Unavailable LETTIERE, A EUGENE PA Unavailable Unavailable LETTIERE, A EUGENE PA Unavailable Unavailable LETTIERE, A EUGENE PA Unavailable Unavailable LETTIERE, A EUGENE PA Unavailable Unavailable LETTIERE, A EUGENE PA Unavailable Unavailable LETTIERE, A EUGENE PA Unavailable Unavailable LETTIERE, A EUGENE PA Unavailable Unavailable LETTIERE, A EUGENE PA Unavailable Unavailable LETTIERE, A EUGENE PA Unavailable Unavailable LETTIERE, A EUGENE PA Unavailable Unavailable LETTIERE, A EUGENE PA Unavailable Unavailable LETTIERE, A EUGENE PA Unavailable Unavailable Michelle, L Nathalie ROTARY PEEL OVEN TENDER Unavailable Unavailable Michelle, L Nathalie ROTARY PEEL OVEN TENDER Unavailable Unavailable Michelle, L Nathalie ROTARY PEEL OVEN TENDER Unavailable Unavailable Michelle, L Nathalie ROTARY PEEL OVEN TENDER Unavailable Unavailable Michelle, L Nathalie ROTARY PEEL OVEN TENDER Unavailable Unavailable Michelle, L Nathalie ROTARY PEEL OVEN TENDER Unavailable Unavailable Michelle, L Nathalie ROTARY PEEL OVEN TENDER Unavailable Unavailable Michelle, L Nathalie ROTARY PEEL OVEN TENDER Unavailable Unavailable Michelle, L Nathalie ROTARY PEEL OVEN TENDER Unavailable Unavailable Michelle, L Nathalie ROTARY PEEL OVEN TENDER Unavailable Unavailable Michelle, L Nathalie ROTARY PEEL OVEN TENDER Unavailable Unavailable Michelle, L Nathalie ROTARY PEEL OVEN TENDER Unavailable Unavailable Michelle, L Nathaile ROTARY PEEL OVEN TENDER Unavailable Unavailable Michelle, L Nathalie ROTARY PEEL OVEN TENDER Unavailable Unavailable Michelle, L Nathalie ROTARY PEEL OVEN TENDER Unavailable Unavailable Michelle, L Nathalie ROTARY PEEL OVEN TENDER Unavailable Unavailable Michelle, L Nathalie ROTARY PEEL OVEN TENDER Unavailable Unavailable Michelle, L Nathalie ROTARY PEEL OVEN TENDER Unavailable Unavailable Michelle, L Nathalie ROTARY PEEL OVEN TENDER Unavailable Unavailable Michelle, L Nathalie ROTARY PEEL OVEN TENDER Unavailable Unavailable Michelle, L Nathalie ROTARY PEEL OVEN TENDER Unavailable Unavailable Michelle, L Nathalie ROTARY PEEL OVEN TENDER Unavailable Unavailable Re-disclosure Warning The records that you are about to access may contain information from federally-assisted alcohol or drug abuse programs. If such information is present, then the following federally mandated warning applies: This information has been disclosed to you from records protected by federal confidentiality rules (42 CFR part 2). The federal rules prohibit you from making any further disclosure of this information unless further disclosure is expressly permitted by the written consent of the person to whom it pertains or as otherwise permitted by 42 CFR part 2. A general authorization for the release of medical or other information is NOT sufficient for this purpose. The Federal rules restrict any use of the information to criminally investigate or prosecute any alcohol or drug abuse patient.The records that you are about to access may contain highly sensitive health information, the redisclosure of which is protected by Article 27-F of the [facility] Public Health law. If you continue you may have access to information: Regarding HIV / AIDS; Provided by facilities licensed or operated by the [facility] Office of Mental Health; or Provided by the [facility] Office for People With Developmental Disabilities. If such information is present, then the following [facility] mandated warning applies: This information has been disclosed to you from confidential records which are protected by state law. State law prohibits you from making any further disclosure of this information without the specific written consent of the person to whom it pertains, or as otherwise permitted by law. Any unauthorized further disclosure in violation of state law may result in a fine or long-term sentence or both. A general authorization for the release of medical or other information is NOT sufficient authorization for further disc losure. Allergies and Adverse Reactions Type Description Substance Reaction Status Data Source(s ) aspirin Aspirin Aspirin tongue swells Active eCW1 ([facility]) Drug allergy Actonel Risedronate gi upset Active eCW1 ([facility]) Felodipine Felodipine 24 HR Felodipine 10 MG Extended Release Oral Tablet gi upset Active eCW1 ([facility]) bees, bee wax bees, bee wax bees, bee wax swelling Active eCW1 ([facility]) influenza influenza influenza nausea/hives Active eCW1 ([facility]) Family History Family Member Name Family Member Gender Family Member Status Date o f Status Description Data Source(s) Unknown Female Problem MEDENT ([facility]) Unknown Female Problem MEDENT ([facility]) Unknown Female Problem MEDENT ([facility]) Unknown Female Problem MEDENT ([facility]) Unknown Female Problem MEDENT ([facility]) Unknown Female Problem MEDENT ([facility]) Encounters Encounter Providers Location Date Indications Data Source(s ) Unknown [address] [facility] [id number] 03/04/2020 12:00:00 AM EST eCW1 ([facility]) Outpatient [address] [facility] [id number] 01/18/2020 12:00:00 AM EST eCW1 ([facility]) Outpatient Attender: Iman EVANS [facility] 12/18/2019 08:00:00 AM EDT MEDENT ([facility]) Outpatient Attender: Nathalie Torres/Venu/Patrick/Clayton 11/12/2019 09:00:00 AM EDT MEDENT ([facility]) Outpatient Attender: Iman EVANS [facility] 09/17/2019 09:30:00 AM EDT MEDENT ([facility]) Outpatient [address] [facility] [id number] 08/03/2019 12:00:00 AM EDT eCW1 ([facility]) [facility] [address] [facility] [id number] 06/07/2019 12:00:00 AM EDT eCW1 ([facility]) [facility] [address] [place] [address], [place] [address] 06/01/2019 12:00:00 AM EDT [facility] [address] [place] [address] 05/18/2019 12:00:00 AM EDT [facility] Outpatient Attender: Ghazala fuentes 2019 10:45:00 AM EDT MEDENT ([facility] [address] [address] 05/09/2019 12:00:00 AM EDT eCW1 [facility]) Outpatient Attender: Iman EVANS [facility] 04/18/2019 07:00:00 AM EST MEDENT ([facility] [address] [address] 03/20/2019 12:00:00 AM EST eCW1 [facility]) Outpatient Referrer: TERESA EVANS 03/08/2019 03:22:00 PM EST [facility] [address] [address] 03/08/2019 12:00:00 AM EST eCW1 ([facility]) [address] [address] 03/08/2019 12:00:00 AM EST eCW1 ([facility]) Outpatient Referrer: TERESA EVANS 03/07/2019 03:47:00 PM EST [facility] Outpatient Attender: EUGENE oliveros 02/27/2019 08:10:00 AM EST MEDENT ([facility]) Outpatient Attender: Iman EVANS [facility] 01/16/2019 08:30:00 AM EST MEDENT ([facility]) Medications Medication Brand Name Start Date Product Form Dose Route Admi nistrative Instructions Pharmacy Instructions Status Indications Reaction Description Data Source(s) 25 mg 01/19/2020 12:00:00 AM EST tablet 90 TAKE ONE TABLET BY MOUTH IN THE MORNING TAKE ONE TABLET BY MOUTH IN THE MORNING SOLD: 01/21/2020 [facility] atorvastatin 40 MG Oral Tablet ATORVASTATIN CALCIUM 01/19/2020 1 2:00:00 AM EST tablet 90 TAKE ONE TABLET BY MOUTH DAILY TAKE ONE T ABLET BY MOUTH DAILY SOLD: 01/21/2020 [facility] 20 mg 01/19/2020 12:00:00 AM EST tablet 180 TAKE ONE TABLET BY MOUTH TWICE A DAY TAKE ONE TABLET BY MOUTH TWICE A DAY SOLD: 01/21/2020 [facility] 28-10 mg 01/19/2020 12:00:00 AM EST capsule,sprinkle,ER 24h r 90 TAKE ONE CAPSULE BY MOUTH EVERY EVENING TAKE ONE CAPSULE BY MOUTH EVERY EVENING SOLD: 01/21/2020 [facility] Paroxetine Hydrochloride 10 MG Oral Tablet PAROXETINE HCL 01/19/2020 12:00:00 AM EST tablet 90 TAKE ONE TABLET BY MOUTH HEMA TAKE ONE TABLET BY MOUTH EVERY MORNING SOLD: 01/21/2020 [facility] 10 mg 01/14/2020 12:00:00 AM EST tablet 90 TAKE ONE TABLET BY MOUTH EVERY DAY AT BEDTIME TAKE ONE TABLET BY MOUTH EVERY DAY AT BEDTIME SOLD: 01/16/2020 [facility] 28-10 mg 08/15/2019 12:00:00 AM EDT capsule,sprinkle,ER 24h r 90 TAKE ONE CAPSULE BY MOUTH EVERY DAY IN THE EVENING TAKE ONE CAPSULE BY MOUTH EVERY DAY IN THE EVENING SOLD: 11/17/2019 [facility] 28-10 mg 08/15/2019 12:00:00 AM EDT capsule,sprinkle,ER 24h r 90 TAKE ONE CAPSULE BY MOUTH EVERY DAY IN THE EVENING TAKE ONE CAPSULE BY MOUTH EVERY DAY IN THE EVENING SOLD: 08/19/2019 [facility] Paroxetine Hydrochloride 10 MG Oral Tablet PAROXETINE HCL 08/13/2019 12:00:00 AM EDT tablet 90 TAKE ONE TABLET BY MOUTH HEMA DAY IN THE MORNING TAKE ONE TABLET BY MOUTH EVERY DAY IN THE MORNING SOLD: 11/17/2019 [facility] 10 mg 08/13/2019 12:00:00 AM EDT tablet 90 TAKE ONE TABLET BY MOUTH EVERY DAY IN THE MORNING TAKE ONE TABLET BY MOUTH EVERY DAY IN THE MORNING SOLD : 08/15/2019 [facility] atorvastatin 40 MG Oral Tablet ATORVASTATIN CALCIUM 08/04/2019 1 2:00:00 AM EDT tablet 90 TAKE ONE TABLET BY MOUTH EVERY D AY TAKE ONE TABLET BY MOUTH EVERY DAY SOLD: 11/03/2019 [facility] 25 mg 08/04/2019 12:00:00 AM EDT tablet 90 TAKE ONE TABLET BY MOUTH EVERY DAY IN THE MORNING TAKE ONE TABLET BY MOUTH EVERY DAY IN THE MORNING SOLD : 08/06/2019 [facility] 20 mg 08/04/2019 12:00:00 AM EDT tablet 180 TAKE ONE TABLET BY MOUTH TWICE A DAY TAKE ONE TABLET BY MOUTH TWICE A DAY SOLD: 08/06/2019 [facility] 25 mg 08/04/2019 12:00:00 AM EDT tablet 90 TAKE ONE TABLET BY MOUTH EVERY DAY IN THE MORNING TAKE ONE TABLET BY MOUTH EVERY DAY IN THE MORNING SOLD : 11/03/2019 [facility] 20 mg 08/04/2019 12:00:00 AM EDT tablet 180 TAKE ONE TABLET BY MOUTH TWICE A DAY TAKE ONE TABLET BY MOUTH TWICE A DAY SOLD: 11/03/2019 [facility] 40 mg 08/04/2019 12:00:00 AM EDT tablet 90 TAKE ONE TABLET BY MOUTH EVERY DAY TAKE ONE TABLET BY MOUTH EVERY DAY SOLD: 08/06/2019 [facility] 10 mg 06/08/2019 12:00:00 AM EDT tablet 90 TAKE ONE TABLET BY MOUTH EVERY DAY TAKE ONE TABLET BY MOUTH EVERY DAY SOLD: 06/09/2019 [facility] 10 mg 06/07/2019 12:00:00 AM EDT tablet 90 TAKE ONE TABLET BY MOUTH AT BEDTIME TAKE ONE TABLET BY MOUTH AT BEDTIME SOLD: 06/07/2019 [facility] Paroxetine HCl 10 MG Paroxetine HCl 10 MG 06/07/2019 12:00:00 AM EDT active 1 tablet in the morning eCW1 ([facility]) 10 mg 06/07/2019 12:00:00 AM EDT tablet 90 TAKE ONE TABLET BY MOUTH AT BEDTIME TAKE ONE TABLET BY MOUTH AT BEDTIME SOLD: 09/11/2019 [facility] 20 mg 05/19/2019 12:00:00 AM EDT tablet 180 TAKE ONE TABLET BY MOUTH TWICE A DAY TAKE ONE TABLET BY MOUTH TWICE A DAY SOLD: 05/21/2019 [facility] 40 mg 05/19/2019 12:00:00 AM EDT tablet 90 TAKE ONE TABLET BY MOUTH EVERY DAY TAKE ONE TABLET BY MOUTH EVERY DAY SOLD: 05/21/2019 [facility] 25 mg 05/19/2019 12:00:00 AM EDT tablet 90 TAKE ONE TABLET BY MOUTH EVERY MORNING TAKE ONE TABLET BY MOUTH EVERY MORNING SOLD: 05/21/2019 [facility] 28-10 mg 05/17/2019 12:00:00 AM EDT capsule,sprinkle,ER 24h r 90 TAKE ONE CAPSULE BY MOUTH EVERY EVENING TAKE ONE CAPSULE BY MOUTH EVERY EVENING SOLD: 05/19/2019 [facility] 5 % 05/12/2019 12:00:00 AM EDT cream 120 APPLY TO AFFECTED AREA(S) NECK TO SOLES OF FEET WASH OFF AFTER 8-14 HOURS MAY REPEAT IN 10-14 DAYS APPLY TO AFFECTED AREA(S) NECK TO SOLES OF FEET WASH OFF AFTER 8-14 HOURS MAY REPEAT IN 10-14 DAYS SOLD: 05/12/2019 [facility] 28-10 mg 2019 12:00:00 AM EDT capsule,sprinkle,ER 24h r 30 TAKE 1 CAPSULE BY MOUTH IN THE EVENING TAKE 1 CAPSULE BY MOUTH IN THE EVENING SOLD: 05/11/2019 [facility] Permethrin 50 MG/ML Topical Cream Permethrin 2019 12:00:00 AM EDT active MEDENT ([facility]) Prednisone 20 MG Oral Tablet Prednisone 2019 12:00:00 AM EDT active MEDENT ([facility]) 20 mg 2019 12:00:00 AM EDT tablet 8 TAKE ONE TABLET BY MOUTH TWICE A DAY WITH FOOD FOR 4 DAYS TAKE ONE TABLET BY MOUTH TWICE A DAY WIT H FOOD FOR 4 DAYS SOLD: 2019 [facility] Crutches-Aluminum 02/27/2019 12:00:00 AM EST active MEDENT ([facility]) Post-Op Shoe/Soft TOP/Women/Large 02/27/2019 12:00:00 AM EST active MEDENT ([facility]) 20 mg 01/31/2019 12:00:00 AM EST tablet 180 TAKE 1 TABLET BY MOUTH TWO TIMES A DAY TAKE 1 TABLET BY MOUTH TWO TIMES A DAY SOLD: 02/06/2019 [facility] 10 mg 01/16/2019 12:00:00 AM EST tablet 90 TAKE ONE TABLET BY MOUTH AT BEDTIME TAKE ONE TABLET BY MOUTH AT BEDTIME SOLD: 01/16/2019 [facility] 10 mg 01/16/2019 12:00:00 AM EST tablet 90 TAKE ONE TABLET BY MOUTH AT BEDTIME TAKE ONE TABLET BY MOUTH AT BEDTIME SOLD: 04/22/2019 [facility] 25 mg 11/15/2018 12:00:00 AM EDT tablet 90 TAKE ONE TABLET BY MOUTH EVERY MORNING TAKE ONE TABLET BY MOUTH EVERY MORNING SOLD: 02/16/2019 [facility] 10 mg 11/15/2018 12:00:00 AM EDT tablet 90 TAKE ONE TABLET BY MOUTH EVERY MORNING TAKE ONE TABLET BY MOUTH EVERY MORNING SOLD: 02/16/2019 [facility] 40 mg 11/02/2018 12:00:00 AM EDT tablet 90 TAKE ONE TABLET BY MOUTH EVERY DAY TAKE ONE TABLET BY MOUTH EVERY DAY SOLD: 02/06/2019 [facility] 28-10 mg 10/31/2018 12:00:00 AM EDT capsule,sprinkle,ER 24h r 90 TAKE ONE CAPSULE BY MOUTH EVERY EVENING TAKE ONE CAPSULE BY MOUTH EVERY EVENING SOLD: 01/29/2019 [facility] Insurance Providers Payer name Policy type / Coverage type Policy ID Covered alliance party ID Covered alliance party's relationship to jain Policy Jain Plan Information [facility] [id number] MD2 [id number] MEDICARE [id number] SP [id number] [facility] [id number] S [id number] MEDICARE C [id number] S [id number] ANSI-Medicare Part B [id number] ANSI-Commercial [id number] ANSI-Commercial [id number] [facility] [id number] HU2 [id number] MEDICARE [id number] A ANSI-Commercial [id number] ANSI-Commercial [id number] ANSI-Medicare Part B [id number] ANSI-Medicare Part B [id number] ANSI-Commercial [id number] ANSI-Commercial [id number] ANSI-Commercial [id number] ANSI-Commercial [id number] ANSI-Medicare Part B [id number] ANSI-Medicare Part B [id number] ANSI-Commercial [id number] ANSI-Commercial [id number] MEDICARE [id number] W91 [facility] [id number] [facility] [id number] ANSI-Medicare Part B [id number] ANSI-Commercial [id number] ANSI-Commercial [id number] ANSI-Medicare Part B [id number] ANSI-Commercial [id number] ANSI-Commercial [id number] ANSI-Medicare Part B [id number] ANSI-Commercial [id number] ANSI-Commercial [id number] ANSI-Commercial [id number] ANSI-Commercial [id number] ANSI-Medicare Part B [id number] ANSI-Commercial [id number] ANSI-Commercial [id number] ANSI-Medicare Part B [id number] Commercial [id number] Self [id number] [facility] Commercial [id number] Family Dependent [id number] Medicare - NGS Medicare Primary [id number] Self [id number] ANSI-Commercial [id number] ANSI-Commercial [id number] [facility]-Medicare Part B [id number] ANSI-Commercial [id number] [facility]-Medicare Part B [id number] ANSI-Commercial [id number] [place] [id number] [place] Commercial [id number] Family Dependent [id number] Medicare - [facility] Medicare Primary [id number] Self [id number] [place] [id number] Self [id number] [place] [facility]pr[facility] [id number] Family Dependent [id number] [place] Ins ([place]) Workers Compensation [id number] Self [id number] [place] Medigap Part B [id number] Family Dependent [id number] Medicare [place] Gov't Servi Medicare Primary [id number] Self [id number] Medicare [place] [id number] Self [id number] [place] [employer] [id number] Family Dependent [id number] Medicare - [facility] Medicare Primary [id number] Self [id number] [place] [employer] [id number] Family Dependent [id number] Medicare - [facility] Medicare Primary [id number] Self [id number] [place] B [id number] Self [id number] MEDICARE [id number] SP [id number] A [place] [id number] [id number] [place] [id number] Self [id number] MEDICARE C [id number] S [id number] A [place] PPO O [id number] S [id number] Medicare [place] Gov't Servi Medigap Part B [id number] Self [id number] [place] [employer] [id number] Family Dependent [id number] MEDICARE [id number] SP [id number] A [place] [id number] HU2 [id number] [place] B [id number] Self [id number] [place] [id number] Self [id number] [place] Gov[place] Med[place] Part B Self [place] [employer] Family Dependent Medicare [facility] Part B Self [place] (pr) Commercial Family Dependent Pma Ins (WC) Workers Compensation Self [employer] O [id number] P [id number] [employer] P [id number] S [id number] Problems, Conditions, and Diagnoses Code Display Name Description Problem Type Effective Dates Data Source(s) 68628335 Obstructive sleep apnea syndrome Obstructive sle ep apnea syndrome Problem 11/12/2019 12:00:00 AM EDT MEDENT ([facility]) Z12.11 [id number] Colon cancer screening Problem 08/03/2019 12 :00:00 AM EDT eCW1 ([facility]) L28.1 [id number] 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/2019 12:00:0 0 AM EDT eCW1 ([facility]) Surgeries/Procedures Procedure Description Date Indications Data Source(s) COLONOSCOPY W/BIOPSY SINGLE/MULTIPLE 08/03/2019 12:00: 00 AM EDT eCW1 ([facility]) Office Visit, Est Pt., Level 4 PC 03/20/2019 12:00:00 AM EST eCW1 ([facility]) Results ID Date Data Source INSULIN LEVEL 03/20/2019 12:00:00 AM EST eCW1 ([facility]) Name Value Range Interpretation Code Description Data Neida rce(s) Supporting Document(s) 42.2 2.6-24.9 INSULIN LEVEL eCW1 ([facility]) ID Date Data Source [id number] 03/20/2019 12:00:00 AM EST eCW1 ([facility]) Name Value Range Interpretation Code Description Data Neida rce(s) Supporting Document(s) Hemoglobin A1c/Hemoglobin.total in Blood 6.2 HEMOGLOBIN A1c eCW1 ([facility]) ID Date Data Source Comprehensive Metabolic Profile (CMP) 03/20/2019 12:00:00 AM EST eCW1 ([facility]) Name Value Range Interpretation Code Description Data Neida rce(s) Supporting Document(s) 105 70-100 GLUCOSE, FASTING eCW1 ([facility]) > 60.0 >45 GLOMERULAR FILTRATION RATE eCW 1 ([facility]) 140 136-145 SODIUM LEVEL eCW1 ([facility]) 4.6 3.5-5.1 POTASSIUM SERUM eCW1 ([facility]) 19 7-18 BLOOD UREA NITROGEN eCW1 ([facility]) 0.97 0.55-1.30 CREATININE FOR GFR eCW1 ([facility]) 29 21-32 CARBON DIOXIDE LEVEL eCW1 ([facility]) 9.3 8.8-10.2 CALCIUM LEVEL eCW1 ([facility]) 22 7-37 AST/SGOT eCW1 ([facility]) 106 98-107 CHLORIDE LEVEL eCW1 ([facility]) 98 45-117 ALKALINE PHOSPHATASE eCW1 ([facility]) 7.0 6.4-8.2 TOTAL PROTEIN eCW1 ([facility]) 25 12-78 ALT/SGPT eCW1 ([facility]) 3.7 3.2-5.2 ALBUMIN eCW1 ([facility]) 0.4 0.2-1.0 BILIRUBIN,TOTAL eCW1 ([facility]) 1.12 1.00-1.93 ALBUMIN/GLOBULIN RATIO eCW1 ([facility]) ID Date Data Source CBC with Differential 03/20/2019 12:00:00 AM EST eCW1 ([facility]) Name Value Range Interpretation Code Description Data Neida rce(s) Supporting Document(s) 7.6 4.0-10.0 WHITE BLOOD COUNT [facility] 4.62 4.00-5.40 RED BLOOD COUNT eCW1 ([facility]) 31.2 27.0-33.0 MEAN CORPUSCULAR HEMOGLOB IN eCW1 ([facility]) 44.0 36.0-47.0 HEMATOCRIT eCW1 ([facility]) 14.4 12.0-15.5 HEMOGLOBIN eCW1 ([facility]) 95.2 80.0-96.0 MEAN CORPUSCULAR VOLUME e CW1 ([facility]) 67.5 36.0-66.0 NEUTROPHILS % eCW1 ([facility]) 12.9 11.5-14.5 RED CELL DISTRIBUTION WID TH eCW1 ([facility]) 219 150-450 PLATELET COUNT, AUTOMATED eCW1 ([facility]) 32.7 32.0-36.5 MEAN CORPUSCULAR HGB CONC eCW1 ([facility]) 19.9 24.0-44.0 LYMPH % eCW1 ([facility]) 5.1 1.5-8.5 NEUTROPHILS # eCW1 ([facility]) 9.9 0.0-5.0 MONO % eCW1 ([facility]) 0.5 0.0-1.0 BASO % eCW1 ([facility]) 1.7 0.0-3.0 EOS % eCW1 ([facility]) 0.8 0.0-0.8 MONO # eCW1 ([facility]) 0.0 0.0-0.2 BASO # eCW1 ([facility]) 0.1 0.0-0.5 EOS # eCW1 ([facility]) 1.5 1.5-5.0 LYMPH # eCW1 ([facility]) Procedure Social History Code Duration Value Status Description Data Source(s ) Smoking 01/18/2020 12:00:00 AM EST Former Smoker completed Former Smoker eCW1 ([facility]) Smoking 01/18/2020 12:00:00 AM EST Former Smoker completed Former Smoker eCW1 ([facility]) Smoking 11/12/2019 12:00:00 AM EDT Patient is a former smoker completed Patient is a former smoker MEDENT ([facility], ) Smoking 08/03/2019 12:00:00 AM EDT Former Smoker completed Former Smoker eCW1 ([facility]) Vital Signs ID Date Data Source UNK Name Value Range Interpretation Code Description Data Source(s) Diastolic blood pressure 82 mm[Hg] 82 mm[Hg] eCW1 ([facility]) Systolic blood pressure 140 mm[Hg] 140 mm[Hg] e CW1 ([facility]) Body temperature 97.2 [degF] 97.2 [degF] eCW1 ( [facility]) Respiratory rate 18 /min 18 /min eCW1 ([facility]) Heart rate 77 /min 77 /min eCW1 ([facility]) Body mass index (BMI) [Ratio] 27.88 kg/m2 27.88 kg/m2 W1 ([facility]) Body height 63 [in_i] 63 [in_i] eCW1 ([facility]) Body weight 157.4 [lb_av] 157.4 [lb_av] eCW1 ([facility]) Respiratory rate 16 /min 16 /min MEDENT ( [facility], ) Heart rate 84 /min 84 /min MEDENT ([facility], ) Diastolic blood pressure 90 mm[Hg] 90 mm[Hg] MEDENT ([facility], ) Systolic blood pressure 140 mm[Hg] 140 mm[Hg] M EDENT ([facility], ) Body weight 69.854 kg 69.854 kg [facility] ([facility], ) Body mass index (BMI) [Ratio] 29.6 kg/m2 29.6 k g/m2 [facility] ([facility], ) Body weight 154.00 [lb_av] 154.00 [lb_av] MEDEN T ([facility], ) Body height 60.5 [in_i] 60.5 [in_i] MEDENT ([facility], ) 5'0.50" Body temperature 96.6 [degF] 96.6 [degF] MEDENT ([facility], ) Oxygen saturation in Arterial blood by Pulse oximetry 98 % 98 % MEDENT ([facility], ) Heart rate 69 /min 69 /min MEDENT ([facility], ) Diastolic blood pressure 62 mm[Hg] 62 mm[Hg] MEDENT ([facility], ) Systolic blood pressure 120 mm[Hg] 120 mm[Hg] M EDENT ([facility], ) Diastolic blood pressure 78 mm[Hg] 78 mm[Hg] eCW1 ([facility]) Systolic blood pressure 130 mm[Hg] 130 mm[Hg] e CW1 ([facility]) Body temperature 98.1 [degF] 98.1 [degF] eCW1 ( [facility]) Respiratory rate 20 /min 20 /min eCW1 ([facility]) Heart rate 93 /min 93 /min eCW1 ([facility]) Body mass index (BMI) [Ratio] 26.57 kg/m2 26.57 kg/m2 eCW1 ([facility]) Body height 63 [in_i] 63 [in_i] eCW1 ([facility]) Body weight 150.0 [lb_av] 150.0 [lb_av] eCW1 ([facility]) Body temperature 98.2 [degF] 98.2 [degF] MEDENT ([facility], [facility]) Oxygen saturation in Arterial blood by Pulse oximetry 95 % 95 % MEDENT ([facility], [facility]) Respiratory rate 14 /min 14 /min MEDENT ( [facility], [facility]) Heart rate 85 /min 85 /min MEDENT ([facility], [facility]) Body mass index (BMI) [Ratio] 26.5 kg/m2 26.5 k g/m2 MEDENT ([facility], [facility]) Body height 64.5 [in_i] 64.5 [in_i] MEDENT ([facility], [facility]) 5'4.50" Body weight 157.00 [lb_av] 157.00 [lb_av] MEDEN T ([facility], [facility]) Body weight 150.00 [lb_av] 150.00 [lb_av] MEDEN T ([facility], ) Respiratory rate 16 /min 16 /min MEDENT ( [facility], ) Heart rate 64 /min 64 /min MEDENT ([facility], ) Diastolic blood pressure 80 mm[Hg] 80 mm[Hg] MEDENT ([facility], ) Systolic blood pressure 122 mm[Hg] 122 mm[Hg] M EDENT ([facility], ) Respiratory rate 16 /min 16 /min MEDENT ( [facility], ) Heart rate 64 /min 64 /min MEDENT ([facility], ) Diastolic blood pressure 80 mm[Hg] 80 mm[Hg] MEDENT ([facility], ) Systolic blood pressure 122 mm[Hg] 122 mm[Hg] M EDENT ([facility], ) Diastolic blood pressure 78 mm[Hg] 78 mm[Hg] eCW1 ([facility]) Systolic blood pressure 132 mm[Hg] 132 mm[Hg] e CW1 ([facility]) Body temperature 97.5 [degF] 97.5 [degF] eCW1 ( [facility]) Respiratory rate 18 /min 18 /min eCW1 ([facility]) Heart rate 93 /min 93 /min eCW1 ([facility]) Body mass index (BMI) [Ratio] 27.60 kg/m2 27.60 kg/m2 W1 ([facility]) Body height 63 [in_us] 63 [in_us] eCW1 ([facility]) Body weight Measured 155.8 [lb_av] 155.8 [lb_av ] eCW1 ([facility]) Body mass index (BMI) [Ratio] 26.0 kg/m2 26.0 k g/m2 MEDENT ([facility] Heart rate 76 /min 76 /min MEDENT ([facility] Diastolic blood pressure 69 mm[Hg] 69 mm[Hg] MEDENT ([facility] Systolic blood pressure 123 mm[Hg] 123 mm[Hg] M EDENT ([facility] Body weight 154.00 [lb_av] 154.00 [lb_av] MEDEN T ([facility] Body height 64.5 [in_i] 64.5 [in_i] MEDENT ([facility] 5'4.50" Body mass index (BMI) [Ratio] 26.0 kg/m2 26.0 [facility]) Body height 64.5 [in_i] 64.5 [in_i] MEDENT ([facility]) 5'4.50" Body weight 154.00 [lb_av] 154.00 [lb_av] MEDEN T ([facility], [facility]) Body temperature 98.1 [degF] 98.1 [degF] MEDENT ([facility]) Oxygen saturation in Arterial blood by Pulse oximetry 98 % 98 % [facility] ([facility]) Respiratory rate 17 /min 17 /min [facility] ( [facility]) Heart rate 76 /min 76 /min [facility] ([facility]) Diastolic blood pressure 69 mm[Hg] 69 mm[Hg] [facility] ([facility]) Systolic blood pressure 123 mm[Hg] 123 mm[facility]Hg] [facility] 16 /min 16 /[facility] ) Heart rate 72 /min 72 /min [facility] ([facility], ) Diastolic blood pressure 90 mm[Hg] 90 mm[Hg] [facility] ([facility], ) Systolic blood pressure 168 mm[Hg] 168 mm[Hg] [facility] ([facility], ) Patient Treatment Plan of Care Planned Activity Planned Date Details Description Data Source (s) Paroxetine HCl 10 MG 06/07/2019 12:00:00 AM EDT eCW1 ([facility])
--- OUTSIDE RECORDS SUMMARY | 2020-03-10 16:38 | CCD ---
Author Author [facility] Organization [facility] Address Unknown Phone Unavailable Care Team Providers Care Abap Developer Name Role Phone Neil Hayes Unavailable PROBLEMS Type Condition ICD9-CM Code FYN54-YO Code Onset Dates Condition S tatus SNOMED Code Notes Problem Mixed hyperlipidemia E78.2 Active 727042085 Problem Essential (primary) hypertension I10 Active 24519136 Problem Breast cancer screening Z12.39 Active 11684887 8 Problem Vitamin D deficiency, unspecified E55.9 Active 56267898 Problem Osteoarthritis of spine with radiculopathy, lumbar region M47.26 Active 137745502 Problem B12 deficiency E53.8 Active 074757311 Problem KARLA (obstructive sleep apnea) G47.33 Active 78 670011 Problem Colon cancer screening Z12.11 Active 062456798 Problem Borderline osteopenia M85.80 Active 020743724 Problem Prurigo nodularis L28.1 Active 96133668 Problem IFG (impaired fasting glucose) R73.01 Active 3 48667544 Problem Non-seasonal allergic rhinitis, unspecified trigger J30.89 Active 94730030 Problem Rash R21 Active 596334363 Problem Alzheimer''s disease with late onset G30.1 Act humble 65971555 Problem ABHIJIT (generalized anxiety disorder) F41.1 Activ e 93630509 ALLERGIES Allergen (clinical drug ingredient) Drug/Non Drug Allergy do cumented on EMR Reaction Allergy Type Onset Date Status bees, bee wax swelling Non Drug Allergy Activ e influenza nausea/hives Non Drug Allergy Active aspirin Aspirin(NDC Code:[address]-66) tongue swells Drug Allergy Active risedronate Actonel(NDC Code:[address]-46) gi upset Drug Allergy Active Felodipine gi upset Drug Allergy Active Sulfa (for allergy use only) Rash Drug Allergy Active Penicillin (For Allergies Use Only) Hives Drug Allerg y Active ENCOUNTERS from 1950 to 2020-01-28 Encounter Location Date Provider Diagnosis [facility] [place] [address] 20 Dec, 2 020 Neil Hayes IFG (impaired fasting glucose) R73.01 ; Essential (primary) hypertension I10 ; ABHIJIT (generalized anxiety disorder) F41.1 ; Prurigo nodularis L28.1 ; Medication non-compliance due to excessive pill burden Z91.14 ; Non-seasonal allergic rhinitis, unspecified trigger J30.89 ; Colon cancer screening Z12.11 ; KARLA (obstructive sleep apnea) G47.33 ; Alzheimer''s disease with late onset G30.1 ; B12 deficiency E53.8 ; Breast cancer screening Z12.39 ; Mixed hyperlipidemia E78.2 ; Vitamin D deficiency, unspecified E55.9 ; Borderline osteopenia M85.80 and Osteoarthritis of spine with radiculopathy, lumbar region M47.26 IMMUNIZATIONS Vaccine Route Administration Date Status Influenza (18 yrs & older) Flublok Unknown Feb 14, 2018 Refused SOCIAL HISTORY Tobacco Use: Social History Observation Description Date Details (start date - stop date) Former Smoker Sex Assigned At : Social History Observation Description Sex Assigned At Unknown Education: Question Answer Notes Level of Education: Not finished High School Language: Question Answer Notes Languages spoken: [place] Alevism: Question Answer Notes Alevism 33 None No zoroastrianism beliefs that would impact health care. Sexual [...] REASON FOR REFERRAL No Information VITAL SIGNS Weight 157.4 lbs Dec, Height 63 in Dec, BMI 27.88 kg/m2 Dec, Heart Rate 77 /min Dec, Respiratory Rate 18 /min Dec, Temperature 97.2 degrees Fahrenheit Dec, Oximetry 98% Dec, Blood pressure systolic 140 mm Hg Dec, Blood pressure diastolic 82 mm Hg Dec, MEDICATIONS Medication SIG (Take, Route, Frequency, Duration) [...] morning Orally Once a day f or day(s) Active PROCEDURES No Information RESULTS No Results REASON FOR VISIT 4-5M follow up MEDICAL (GENERAL) HISTORY Type Description Date Medical [...] History Alzheimer dementia, mild Surgical History colonoscopy-hemorroids, panlosis-[place] in 07/18/09 Surgical History hysterectomy with BSO 1976 Surgical History cholecystecomy 2004 Hospitalization History none Goals Section No Information Health Concerns No Information MEDICAL EQUIPMENT No Information MENTAL STATUS No Information FUNCTIONAL STATUS No Information ASSESSMENTS Encounter Date Diagnosis Assessment Notes Treatment Notes Treatm ent Clinical Notes Dec, IFG (impaired fasting glucose) (ICD-10 - R73.01) Continue dietary therapy family feels she overeats 2 dementia No 1DR c T2DM (but daughter on met) Contingency: met if increased wt and/or increased ADWOA 01/12/20 6.1 c ADWOA-IR 8.5 (111, 31) on no concentrated sweet diet 03/20/19 6.2, 11 (105, 42) 05/2018 5.7 (26, 112) therefore, dc juices 09/2017 6.0 (70, 121) 01/2017 5.8 09/2012 5.04 May 2010 A1c 5.7 03/2014 07 April 2011 ARIELLE/creatinine 5 Dec, Essential (primary) hypertension (ICD-10 - I10) Stable on HCTZ 25 qAM, lisin 20 BID Contingency: carve (tita given ABHIJIT) 01/12/20 13/0.8, 4.4 03/20/19 4.6, .10 11/16 4.1, 1.9, 0.9 11/14/18 + HCTZ 25 qAM and dc added salt ( states steak is "white" from added salt) and EthOH (taking ~1-2 beers QHS) and cb BID HBPs in 3D 11/07/18 increased lisin 20 QHS to 20 BID 10/31/18 4.3. 0.7 05/2018 4.1, 0.6 09/2017 4.5, 0.9 changed HCTZ 25/lisin 10 both QHS to HCTZ 25 qAM/lisin 20 QHS cb BID HBPs in 14D 02/2013 NSR 79 bpm EKG, LAE Dec, ABHIJIT (generalized anxiety disorder) (ICD-10 - F41 .1) Stable on parox 10 11/14/18 + parox 10 given ABHIJIT (which directly raises BP)-SBP 170-190 when anxious c improved anxiety, but 5-6x daily diarrhea, which resolved on own-favor viral enteritis Dec, Prurigo nodularis (ICD-10 - L28.1) Stable on capsaicin/mupir BID prn flares B dorsal arms Contingency: lidocain topical, TA lesion injection , anti-H//biopsy Strongly encouraged NOT to scratch and for family to redirect her itching Defer po anti-H/anti-psychotic given may exacerbate memory loss Dec, Medication non-compliance du e to excessive pill burden (ICD-10 - Z91.14) 11/14/18 medication list reviewed in detail c patient, and daughter. will administer meds on a daily basis. Dec, Non-seasonal allergic rhinit is, unspecified trigger (ICD-10 - J30.89) Stable on FP 2 qAM 05/2017 + Flonase 2 qAM as per KARLA Dec, Colon cancer screening (ICD-10 - Z12.11) repeat colon due 06/2019-patient refuses repeat and Cologuard Dec, KARLA (obstructive sleep apnea) (ICD-10 - G47.33) Enocuraged compliance c CPAP 11 via FFM (requires FFM given mouth breather since nasal fracture) 08/17/17 NPSG palliated at CPAP 11 (did not tolerate autoPAP) 05/2017 Dr. Gaitan + Flonase 2 qAM given ~SPRINGER 2 AR congestion 03/2017 Dr. Crowley started AutoPap but patient could tolerate because waking c frontal achey SPRINGER 11/2016 HST done given notes frequent snoring and patient c EDS and MCI, cw mild-moderate KARLA as per MH; therefore, referred to PA for NPSG Dec, Alzheimer''s disease with late onset (ICD-10 - G 30.1) Encouraged mental/physical use daily-daily 30-60 minutes aerobic exercise and reading No FH of dementia but unknown father FH Stable mood per patient, but increased family stress. Patient states she is not concerned regarding memory, but family members are concerned. 11/14/18 for unknown reason patient never got starter pack AND was taking donep 10 QHS c Namzaric 25/12 (therefore, cause for N, low K); therefore, stopped donep 10 QHS 10/31/18 restarted Namzeric starter pack and then 25/12 maintenance-for unknown reason, patient never continued it past titration 01/2018 given progressive advancement mainly c working and episodic memory; changed don 10 to Namzaric started pack (goal of 28 ER/10 IR) s improvement; therefore, stopped and referred for Neuro opinion per family request who repeated same BW, MRI/EEG and ALSO felt moderate Alzheimer's dementia 12/09/16 increased don 5 to 10 QHS and checked HST as per KARLA 06/2016 patient stopped dwayne 300 TID s improvement. Given constant ST forgetfulness; checked MRI brain, NAD x T2 signal in L mastoid air cells c/w mastoiditis; therefore, 07/2016 donezepil 5 qhs started 01/2016 sister has noted mild STM loss over ~6M s s/s of dementia no FH early dementia 01/2017 APO E genotype E3/E3-NOT aw increased AD risk 01/2017 normal B6, vitamin E levels, - Lyme screen, -Daniela, -heavy metal screen 07/2016 RPR NR 07/2016 B1 164 thyroid as per hyperlipidemia Dec, B12 deficiency (ICD-10 - E53.8) 01/12/20 15.2, 95 09/2017 15.5, 91, r 36 01/2017 15.8, 91 01/2016 hgb stable at 16.6, 92 05/2018 902 on 250 01/2017 1007 01/2016 B12 1108 on B12 250 mcg QD 01/2016 RBC folate 832 01/12/20 normal SPEP/sIFE MCB Dec, Breast cancer screening (ICD-10 - Z12.39) 01/2019 B C1 mammogram Dec, Mixed hyperlipidemia (ICD-10 - E78.2) 10/2018 152/50/213, 212, <0.3 on 20; therefore, increased to 40 09/2017 47/44/38, 613 (asx, ? on rash pruritus), <0.3 on atorva 20 07/2016 101/65/121, 241, <0.3 06/2015 75/56/65 on atorva 20 09/2017 normal LFTs 09/2017 1.3, 1.0 07/2016 TSH 1.2, FT4 1.1 06/2015 1.3 03/2011 TSH 1.5 Dec, Vitamin D deficiency, unspecified (ICD-10 - E55. 9) 05/2018 26, 9.3, 65 on D3 5K 01/2017 35, 9.4, 25 20 Dec, 2019 Borderline osteopenia (ICD-10 - M85.80) Patient has 2 servings dietary calcium daily 02/2009 BMD 0/0.4/-0.4 Patient defers repeat DEXA Dec, Osteoarthritis of spine with radiculopathy, lumbar region (ICD-10 - M47.26) Stable on current regimen c OTC Aleve 220 BID and epidurals per Dr. Méndez 75% permanent disability per Dr. Friedman-gabapentin per Elder through Patient defers surgery which was offered by Dr. Friedman PLAN OF TREATMENT Medication Medication Name Sig [...] a day for 90 day(s) Treatment Notes Assessment Notes Clinical Notes Borderline osteopenia Patient has 2 serv ings dietary calcium daily02/2009 BMD 0/0.4/-0.4Patient defers repeat DEXA IFG (impaired fasting glucose) Continue dietary therapyfamily feels she overeats 2 dementiaNo 1DR c T2DM (but daughter on met)Contingency: met if increased wt and/or increased HOMA01/12/20 6.1 c ADWOA-IR 8.5 (111, 31) on no concentrated sweet diet03/20/19 6.2, 11 (105, 42)05/2018 5.7 (26, 112) therefore, dc juices09/2017 6.0 (70, 121)01/2017 5. 5.7March 2010 A1c 5. 8February 2011 ARIELLE/creatinine 5 Vitamin D deficiency, unspecified 05/2018 26, 9.3, 65 on D3 5K103/2016 35, 9.4, 25 Essential (primary) hypertension Stable on HCTZ 25 qAM, lisin 20 BIDContingency: carve (tita given ABHIJIT)01/12/20 13/0.8, 4.41/ 4.6, .109 4.1, 1.9, 0.99 + HCTZ 25 qAM and dc added salt ( states steak is "white" from added salt) and EthOH (taking ~1-2 beers QHS) and cb BID HBPs in 3D11/07/18 increased lisin 20 QHS to 20 BID10/31/18 4.3. 0. 4.1, 0. 4.5, 0.9 changed HCTZ 25/lisin 10 both QHS to HCTZ 25 qAM/lisin 20 QHS cb BID HBPs in NSR 79 bpm EKG, LAE ABHIJIT (generalized anxiety disorder) Stabl e on parox + parox 10 given ABHIJIT (which directly raises BP)-SBP 170-190 when anxious c improved anxiety, but 5-6x daily diarrhea, which resolved on own-favor viral enteritis Osteoarthritis of spine with radiculopathy, lumbar region Stable on current regimen c OTC Aleve 220 BID and epidurals per Dr. Méndez75% permanent disability per Dr. Friedman-gabapentin per Elder through WCPatient defers surgery which was offered by Dr. Friedman Prurigo nodularis Stable on capsaicin/ mupir BID prn flaresB dorsal armsContingency: lidocain topical, TA lesion injection , anti-H//biopsyStrongly encouraged NOT to scratch and for family to redirect her itchingDefer po anti-H/anti-psychotic given may exacerbate memory loss Medication non-compliance due to excessive pill burden 11/14/18 medication list reviewed in detail c patient, and daughter. will administer meds on a daily basis. Non-seasonal allergic rhinitis, unspecified trigger Stable on FP 2 qAM05/2017 + Flonase 2 qAM as per KARLA Colon cancer screening repeat colon due 06/2019-patient refuses repeat and Cologuard Mixed hyperlipidemia 10/2018 152/50/213, 212, <0.3 on 20; therefore, increased to 47/44/38, 613 (asx, ? on rash pruritus), <0.3 on atorva 101/65/121, 241, <0. 75/56/65 on atorva normal LFTs09/2017 1.3, 1.07/2016 TSH 1.2, FT4 1. 1. TSH 1.5 Breast cancer screening 01/2019 B C1 kaylee mogram KARLA (obstructive sleep apnea) Enocuraged compliance c CPAP 11 via FFM (requires FFM given mouth breather since nasal fracture)08/17/17 NPSG palliated at CPAP 11 (did not tolerate autoPAP)05/2017 Dr. Gaitan + Flonase 2 qAM given ~ SPRINGER 2 AR congestion03/2017 Dr. Crowley started AutoPap but patient could tolerate because waking c frontal achey HA11/2016 HST done given notes frequent snoring and patient c EDS and MCI, cw mild-moderate KARLA as per MH; therefore, referred to PA for NPSG Alzheimer''s disease with late onset Enc ouraged mental/physical use daily- daily 30-60 minutes aerobic exercise and readingNo FH of dementia but unknown father FHStable mood per patient, but increased family stress. Patient states she is not concerned regarding memory, but family members are concerned.11/14/18 for unknown reason patient never got starter pack AND was taking donep 10 QHS c Namzaric 25/12 (therefore, cause for N, low K); therefore, stopped donep 10 QHS10/31/18 restarted Namzeric starter pack and then 25/12 maintenance-for unknown reason, patient never continued it past waqtkrqjd06/2018 given progressive advancement mainly c working and episodic memory; changed don 10 to Namzaric started pack (goal of 28 ER/10 IR) s improvement; therefore, stopped and referred for Neuro opinion per family request who repeated same BW, MRI/EEG and ALSO felt moderate Alzheimer's nttoxcee08/12/17 increased don 5 to 10 QHS and checked HST as per OSA06/2016 patient stopped dwayne 300 TID s improvement. Given constant ST forgetfulness; checked MRI brain, NAD x T2 signal in L mastoid air cells c/w mastoiditis; therefore, 07/2016 donezepil 5 qhs qccecwi38/2016 sister has noted mild STM loss over ~6M s s/s of dementiano FH early icxsvink56/2017 A PO E genotype E3/E3-NOT aw increased AD risk01/2017 normal B6, vitamin E levels, - Lyme screen, -Daniela, -heavy metal screen07/2016 RPR NR07/2016 B1 164thyroid as per hyperlipidemia B12 deficiency 01/12/20 15.2, 958/2 018 15.5, 91, r 36103/2016 15.8, 9101/2016 hgb stable at 16.6, 924 902 on 3254101/2017 80733901/2016 B12 1108 on B12 250 mcg QD01/2016 RBC folate 0341203/13/19 normal SPEP/sIFE MCB Treatment Notes Test Name Order Date WWBC Sourav Screening Bilateral (Ultrasound if Indicated ) (3D Mammo) 2020-01-28 Future Test Test Name Order Date HEMOGLOBIN A1c [id number] INSULIN LEVEL [id number] Comprehensive Metabolic Profile (CMP) [id number] VITAMIN D 25-HYDROXY [id number] PTH INTACT [id number] LIPID PANEL (CARDIAC RISK) [id number] C REACTIVE PROTEIN QUANTITATIV (At [facility]) [id number] CPK CREATINE PHOSPHOKINASE [id number] Next Appt Details 4-5M, BW 1W prior Reason: Insurance Providers Payer Name Payer Address Payer Phone Insured Name Patient Relati onship to Insured Coverage Start Date Coverage End Date MEDICARE Part A and B [address] [facility] [address] [employer] self [facility] [address] [address] [facility] [id number] Aprit Prather
--- NOTE | 2020-03-10 17:52 | REP ---
INDICATION: CHEST PAIN COMPARISON: 11/05/2016 TECHNIQUE: Portable AP view of the chest FINDINGS: The mediastinum and cardiac silhouette are stable and within normal limits for portable technique. The lung barron demonstrate chronic changes without acute consolidation, effusion, or pneumothorax. Skeletal structures are intact. IMPRESSION: No focal consolidation or effusion. <Electronically signed by Chris Putnam > 03/10/20 7112
[2020-03-10 18:02] LABS: BASO % 0.3 % (0.0-1.0); EOS # 0.1 10^3/uL (0.0-0.5); EOS % 0.7 % (0.0-3.0); HEMATOCRIT 45.4 % (36.0-47.0); HEMOGLOBIN 16.7 g/dl (12.0-15.5); LYMPH # 1.5 10^3/uL (1.5-5.0); LYMPH % 16.5 % (24.0-44.0); MEAN CORPUSCULAR HEMOGLOBIN 31.6 pg (27.0-33.0); MEAN CORPUSCULAR HGB CONC 36.8 g/dl (32.0-36.5); MEAN CORPUSCULAR VOLUME 85.8 fl (80.0-96.0); MONO % 11.5 % (0.0-5.0); NEUTROPHILS # 6.3 10^3/uL (1.5-8.5); NEUTROPHILS % 70.2 % (36.0-66.0); PLATELET COUNT, AUTOMATED 239 10^3/uL (150-450); RED BLOOD COUNT 5.29 10^6/uL (4.00-5.40)
[2020-03-10] MEDS ORDERED: SODIUM CHLORIDE 3% 500 ML IV SCH ×2 (18:15→20:30)
--- OUTSIDE RECORDS SUMMARY | 2020-03-10 18:56 | CCD ---
Author Author [facility] Organization [facility] Address Unknown Phone Unavailable Care Team Providers Care Network And Threat Support Specialist Name Role Phone DRAZEK, I TERESA PA [...] J Iman PA Unavailable Unavailable Whitten, Ghazala LIFE ENRICHMENT ASSISTANT Unavailable Unavailable Whitten, Ghazala LIFE ENRICHMENT ASSISTANT Unavailable Unavailable Whitten, Ghazala LIFE ENRICHMENT ASSISTANT Unavailable Unavailable Whitten, Ghazala LIFE ENRICHMENT ASSISTANT Unavailable Unavailable Whitten, Ghazala LIFE ENRICHMENT ASSISTANT Unavailable Unavailable Whitten, Ghazala LIFE ENRICHMENT ASSISTANT Unavailable Unavailable Whitten, Ghazala LIFE ENRICHMENT ASSISTANT Unavailable Unavailable Whitten, Ghazala LIFE ENRICHMENT ASSISTANT Unavailable Unavailable Whitten, Ghazala LIFE ENRICHMENT ASSISTANT Unavailable Unavailable Whitten, Ghazala LIFE ENRICHMENT ASSISTANT Unavailable Unavailable Whitten, Ghazala LIFE ENRICHMENT ASSISTANT Unavailable Unavailable LETTIERE, A EUGENE PA Unavailable [...] EUGENE PA Unavailable Unavailable Michelle, L Nathalie LIFE ENRICHMENT ASSISTANT Unavailable Unavailable Michelle, L Nathalie LIFE ENRICHMENT ASSISTANT Unavailable Unavailable Michelle, L Nathalie LIFE ENRICHMENT ASSISTANT Unavailable Unavailable Michelle, L Nathalie LIFE ENRICHMENT ASSISTANT Unavailable Unavailable Michelle, L Nathalie LIFE ENRICHMENT ASSISTANT Unavailable Unavailable Michelle, L Nathalie LIFE ENRICHMENT ASSISTANT Unavailable Unavailable Michelle, L Nathalie LIFE ENRICHMENT ASSISTANT Unavailable Unavailable Michelle, L Nathalie LIFE ENRICHMENT ASSISTANT Unavailable Unavailable Michelle, L Nathalie LIFE ENRICHMENT ASSISTANT Unavailable Unavailable Michelle, L Nathalie LIFE ENRICHMENT ASSISTANT Unavailable Unavailable Michelle, L Nathalie LIFE ENRICHMENT ASSISTANT Unavailable Unavailable Michelle, L Nathalie LIFE ENRICHMENT ASSISTANT Unavailable Unavailable Michelle, L Nathalie LIFE ENRICHMENT ASSISTANT Unavailable Unavailable Michelle, L Nathalie LIFE ENRICHMENT ASSISTANT Unavailable Unavailable Michelle, L Nathalie LIFE ENRICHMENT ASSISTANT Unavailable Unavailable Michelle, L Nathalie LIFE ENRICHMENT ASSISTANT Unavailable Unavailable Michelle, L Nathalie LIFE ENRICHMENT ASSISTANT Unavailable Unavailable Michelle, L Nathalie LIFE ENRICHMENT ASSISTANT Unavailable Unavailable Michelle, L Nathalie LIFE ENRICHMENT ASSISTANT Unavailable Unavailable Michelle, L Nathalie LIFE ENRICHMENT ASSISTANT Unavailable Unavailable Michelle, L Nathalie LIFE ENRICHMENT ASSISTANT Unavailable Unavailable Michelle, L Nathalie LIFE ENRICHMENT ASSISTANT Unavailable Unavailable Re-disclosure Warning The records that [...] is protected by Article 27-F of the [facility] Public Health law. If you continue you may have access to information: Regarding HIV / AIDS; Provided by facilities licensed or operated by the [facility] Office of Mental Health; or Provided by the [facility] Office for People With Developmental Disabilities. If such information is present, then the following [facility] mandated warning applies: This information has been [...] law may result in a fine or fdc sentence or both. A general authorization for the release of medical or other information is NOT sufficient authorization for further disc losure. Allergies and Adverse Reactions Type Description Substance Reaction Status Data Source(s ) aspirin Aspirin Aspirin tongue swells Active eCW1 ([facility]) Drug allergy Actonel Risedronate gi upset Active eCW1 ([facility]) Felodipine Felodipine 24 HR Felodipine 10 MG Extended Release Oral Tablet gi upset Active eCW1 ([facility]) bees, bee wax bees, bee wax bees, bee wax swelling Active eCW1 ([facility]) influenza influenza influenza nausea/hives Active eCW1 ([facility]) Family History Family Member Name Family Member Gender Family Member Status Date o f Status Description Data Source(s) Unknown Female Problem MEDENT ([facility]) Unknown Female Problem MEDENT ([facility]) Unknown Female Problem MEDENT ([facility]) Unknown Female Problem MEDENT ([facility]) Unknown Female Problem MEDENT ([facility]) Unknown Female Problem MEDENT ([facility]) Encounters Encounter Providers Location Date Indications Data Source(s ) Unknown [address] [facility] [address] 03/04/2020 12:00:00 AM EST eCW1 ([facility]) Outpatient [address] [facility] [place] [address] 01/18/2020 12:00:00 AM EST eCW1 ([facility]) Outpatient Attender: Iman EVANS [facility] n 12/18/2019 08:00:00 AM EDT MEDENT ([facility]) Outpatient Attender: Nathalie Torres/Venu/Patrick/Reindl 11/12/2019 09:00:00 AM EDT MEDENT ([facility]) Outpatient Attender: Iman EVANS [facility] n 09/17/2019 09:30:00 AM EDT MEDENT ([facility]) Outpatient [address] [facility] [place] [address] 08/03/2019 12:00:00 AM EDT eCW1 ([facility]) [facility] [place] [address] [facility] [place] [address] 06/07/2019 12:00:00 AM EDT eCW1 ([facility]) [address] [address] 06/01/2019 12:00:00 AM EDT eCW1 ([facility]) [address] [place] [address] 05/18/2019 12:00:00 AM EDT eCW1 ([facility]) Outpatient Attender: Ghazala fuentes 2019 10:45:00 AM EDT MEDENT ([facility]) [address] [address] 05/09/2019 12:00:00 AM EDT eCW1 ([facility]) Outpatient Attender: Iman EVANS [facility] 04/18/2019 07:00:00 AM EST MEDENT ([facility]) [address] [place] [address] 03/20/2019 12:00:00 AM EST eCW1 ([facility] Outpatient Referrer: TERESA EVANS 03/08/2019 03:22:00 PM EST [facility] [address] [place] [address] 03/08/2019 12:00:00 AM EST eCW1 ([facility] [address] [address] 03/08/2019 12:00:00 AM EST eCW1 ([facility]) Outpatient Referrer: TERESA EVANS 03/07/2019 03:47:00 PM EST [facility] Outpatient Attender: EUGENE oliveros 02/27/2019 08:10:00 AM EST MEDENT ([facility]) Outpatient Attender: Iman EVANS [facility] 01/16/2019 08:30:00 AM EST MEDENT ([facility]) Medications Medication Brand Name Start Date [...] 90 TAKE ONE TABLET BY MOUTH HEMA RY MORNING TAKE ONE TABLET BY MOUTH EVERY MORNING SOLD: 01/21/2020 [facility] 10 mg 01/14/2020 12:00:00 AM [...] EVERY DAY IN THE EVENING SOLD: 11/17/2019 [facility] 28-10 mg 08/15/2019 12:00:00 AM EDT capsule,sprinkle,ER 24h r 90 TAKE ONE CAPSULE BY MOUTH EVERY DAY IN THE EVENING TAKE ONE CAPSULE BY MOUTH EVERY DAY IN THE EVENING SOLD: 08/19/2019 [facility] Paroxetine Hydrochloride 10 MG Oral Tablet PAROXETINE HCL 08/13/2019 12:00:00 AM EDT tablet 90 TAKE ONE TABLET BY MOUTH HEMA RY DAY IN THE MORNING TAKE ONE TABLET BY MOUTH EVERY DAY IN THE MORNING SOLD: 11/17/2019 [facility] 10 mg 08/13/2019 12:00:00 AM EDT [...] active 1 tablet in the morning eCW1 ([facility]) 10 mg 06/07/2019 12:00:00 AM EDT tablet [...] MAY REPEAT IN 10-14 DAYS SOLD: 05/12/2019 [facility] 28-10 mg 2019 12:00:00 AM EDT capsule,sprinkle,ER 24h r 30 TAKE 1 CAPSULE BY MOUTH IN THE EVENING TAKE 1 CAPSULE BY MOUTH IN THE EVENING SOLD: 05/11/2019 [facility] Permethrin 50 MG/ML Topical Cream Permethrin 2019 12:00:00 AM EDT active MEDENT ([facility]) Prednisone 20 MG Oral Tablet Prednisone 2019 12:00:00 AM EDT active MEDENT ([facility]) 20 mg 2019 12:00:00 AM EDT tablet 8 TAKE ONE TABLET BY MOUTH TWICE A DAY WITH FOOD FOR 4 DAYS TAKE ONE TABLET BY MOUTH TWICE A DAY WIT H FOOD FOR 4 DAYS SOLD: 2019 [facility] Crutches-Aluminum 02/27/2019 12:00:00 AM EST active MEDENT ([facility]) Post-Op Shoe/Soft TOP/Women/Large 02/27/2019 12:00:00 AM EST active MEDENT ([facility]) 20 mg 01/31/2019 12:00:00 AM EST tablet 180 TAKE 1 TABLET BY MOUTH TWO TIMES A DAY TAKE 1 TABLET BY MOUTH TWO TIMES A DAY SOLD: 02/06/2019 [facility] 10 mg 01/16/2019 12:00:00 AM [...] type / Coverage type Policy ID Covered green party ID Covered green party's relationship to hawley Policy Hawley Plan Information [facility] [id number] AZ2 [id number] MEDICARE [id number] SP [id number] W91 [facility] [id number] S [id number] MEDICARE C [id number] S [id number] ANSI-Medicare Part B [id number] ANSI-Commercial [id number] ANSI-Commercial [id number] [facility] [id number] [facility] [id number] MEDICARE [id number] A ANSI-Commercial [id number] ANSI-Commercial [id number] ANSI-Medicare Part B [id number] ANSI-Medicare Part B [id number] ANSI-Commercial [id number] ANSI-Commercial [id number] ANSI-Commercial [id number] ANSI-Commercial [id number] ANSI-Medicare Part B [id number] ANSI-Medicare Part B [id number] ANSI-Commercial [id number] ANSI-Commercial [id number] MEDICARE [id number] W91 [facility] [id number] [facility] [id number] ANSI-Medicare Part B [id number] ANSI-Commercial [id number] ANSI-Commercial [id number] ANSI-Medicare Part B [id number] ANSI-Commercial [id number] ANSI-Commercial [id number] ANSI-Medicare Part B [id number] ANSI-Commercial [id number] ANSI-Commercial [id number] ANSI-Commercial [id number] ANSI-Commercial [id number] ANSI-Medicare Part B [id number] ANSI-Commercial [id number] ANSI-Commercial [id number] ANSI-Medicare Part B [id number] Commercial [id number] Self [id number] 0001 [facility] Commercial [id number] Family Dependent [id number] - [facility] Medicare Primary [id number] Self [id number] ANSI-Commercial [id number] ANSI-Commercial [id number] ANS-Medicare Part B [id number] ANSI-Commercial [id number] ANS-Medicare Part B [id number] ANSI-Commercial [id number] [employer] [id number] HU2 [id number] [employer] [id number] Family Dependent [id number] - [facility] Medicare Primary [id number] Self [id number] [place] [id number] Self [id number] [employer] [facility]pr[facility] [id number] Family Dependent [id number] Pma Ins ([place]) Workers Compensation [id number] Self [id number] [employer] Medigap Part B [id number] Family Dependent [id number] Medicare Natl Gov't Servi Medicare Primary [id number] Self [id number] [place] Med[place] Part [place] [id number] Self [id number] [employer] [id number] Family Dependent [id number] - [facility] Medicare Primary [id number] Self [id number] [employer] [id number] Family Dependent [id number] - [facility] Medicare Primary [id number] Self [id number] [place] Part B [id number] Self [id number] MEDICARE [id number] SP [id number] A [employer] [id number] HU2 [id number] [place] Med[place] Part B [id number] Self [id number] MEDICARE C [id number] S [id number] A [employer] PPO O [id number] S [id number] Medicare Natl Gov't Servi Medigap Part B [id number] Self [id number] [employer] Commercial [id number] Family Dependent [id number] MEDICARE [id number] SP [id number] A [employer] [id number] HU2 [id number] [place] Part [place] [id number] Self [id number] [place] Med[place] Part B [id number] Self [id number] Medicare [place]l Gov't Servi Medigap Part B Self [employer] Family Dependent Medicare [facility] Part B Self [employer] (pr) Commercial Family Dependent Pma Ins ([place]) Workers Compensation Self [employer] O [id number] P [id number] [employer] P [id number] S [id number] Problems, Conditions, and Diagnoses Code Display Name Description Problem Type Effective Dates Data Source(s) 84963833 Obstructive sleep apnea syndrome Obstructive sle ep apnea syndrome Problem 11/12/2019 12:00:00 AM EDT MEDENT ([facility] ) Z12.11 [id number] Colon cancer screening Problem 08/03/2019 12 :00:00 AM EDT eCW1 ([facility]) L28.1 [id number] 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/2019 12:00:0 0 AM EDT eCW1 ([facility]) Surgeries/Procedures Procedure Description Date Indications Data Source(s) COLONOSCOPY W/BIOPSY SINGLE/MULTIPLE 08/03/2019 12:00: 00 AM EDT eCW1 ([facility]) Office Visit, Est Pt., Level 4 PC 03/20/2019 12:00:00 AM EST eCW1 ([facility]) Results ID Date Data Source INSULIN LEVEL 03/20/2019 12:00:00 AM EST eCW1 ([facility]) Name Value Range Interpretation Code Description Data Neida rce(s) Supporting Document(s) 42.2 2.6-24.9 INSULIN LEVEL eCW1 ([facility]) ID Date Data Source [id number] 03/20/2019 12:00:00 AM EST eCW1 ([facility]) Name Value Range Interpretation Code Description Data Neida rce(s) Supporting Document(s) Hemoglobin A1c/Hemoglobin.total in Blood 6.2 HEMOGLOBIN A1c eCW1 ([facility]) ID Date Data Source Comprehensive Metabolic Profile (CMP) 03/20/2019 12:00:00 AM EST eCW1 ([facility]) Name Value Range Interpretation Code Description Data Neida rce(s) Supporting Document(s) 105 70-100 GLUCOSE, FASTING eCW1 ([facility]) > 60.0 >45 GLOMERULAR FILTRATION RATE eCW 1 ([facility]) 140 136-145 SODIUM LEVEL eCW1 ([facility]) 4.6 3.5-5.1 POTASSIUM SERUM eCW1 ([facility]) 19 7-18 BLOOD UREA NITROGEN eCW1 ([facility]) 0.97 0.55-1.30 CREATININE FOR GFR eCW1 ([facility]) 29 21-32 CARBON DIOXIDE LEVEL eCW1 ([facility]) 9.3 8.8-10.2 CALCIUM LEVEL eCW1 ([facility]) 22 7-37 AST/SGOT eCW1 ([facility]) 106 98-107 CHLORIDE LEVEL eCW1 ([facility]) 98 45-117 ALKALINE PHOSPHATASE eCW1 ([facility]) 7.0 6.4-8.2 TOTAL PROTEIN eCW1 ([facility]) 25 12-78 ALT/SGPT eCW1 ([facility]) 3.7 3.2-5.2 ALBUMIN eCW1 ([facility]) 0.4 0.2-1.0 BILIRUBIN,TOTAL eCW1 ([facility]) 1.12 1.00-1.93 ALBUMIN/GLOBULIN RATIO eCW1 ([facility]) ID Date Data Source CBC with Differential 03/20/2019 12:00:00 AM EST eCW1 ([facility]) Name Value Range Interpretation Code Description Data Neida rce(s) Supporting Document(s) 7.6 4.0-10.0 WHITE BLOOD COUNT eCW1 ([facility]) 4.62 4.00-5.40 RED BLOOD COUNT eCW1 ([facility]) 31.2 27.0-33.0 MEAN CORPUSCULAR HEMOGLOB IN eCW1 ([facility]) 44.0 36.0-47.0 HEMATOCRIT eCW1 ([facility]) 14.4 12.0-15.5 HEMOGLOBIN eCW1 ([facility]) 95.2 80.0-96.0 MEAN CORPUSCULAR VOLUME e CW1 ([facility]) 67.5 36.0-66.0 NEUTROPHILS % eCW1 ([facility]) 12.9 11.5-14.5 RED CELL DISTRIBUTION WID TH eCW1 ([facility]) 219 150-450 PLATELET COUNT, AUTOMATED eCW1 ([facility]) 32.7 32.0-36.5 MEAN CORPUSCULAR HGB CONC eCW1 ([facility]) 19.9 24.0-44.0 LYMPH % eCW1 ([facility]) 5.1 1.5-8.5 NEUTROPHILS # eCW1 ([facility]) 9.9 0.0-5.0 MONO % eCW1 ([facility]) 0.5 0.0-1.0 BASO % eCW1 ([facility]) 1.7 0.0-3.0 EOS % eCW1 ([facility]) 0.8 0.0-0.8 MONO # eCW1 ([facility]) 0.0 0.0-0.2 BASO # eCW1 ([facility]) 0.1 0.0-0.5 EOS # eCW1 ([facility]) 1.5 1.5-5.0 LYMPH # eCW1 ([facility]) Procedure Social History Code Duration Value Status Description Data Source(s ) Smoking 01/18/2020 12:00:00 AM EST Former Smoker completed Former Smoker eCW1 ([facility]) Smoking 01/18/2020 12:00:00 AM EST Former Smoker completed Former Smoker eCW1 ([facility]) Smoking 11/12/2019 12:00:00 AM EDT Patient is a former smoker completed Patient is a former smoker MEDENT ([facility]) Smoking 08/03/2019 12:00:00 AM EDT Former Smoker completed Former Smoker eCW1 ([facility]) Vital Signs ID Date Data Source UNK Name Value Range Interpretation Code Description Data Source(s) Diastolic blood pressure 82 mm[Hg] 82 mm[Hg] eCW1 ([facility]) Systolic blood pressure 140 mm[Hg] 140 mm[Hg] e CW1 ([facility]) Body temperature 97.2 [degF] 97.2 [degF] eCW1 ( [facility]) Respiratory rate 18 /min 18 /min eCW1 ([facility]) Heart rate 77 /min 77 /min eCW1 ([facility]) Body mass index (BMI) [Ratio] 27.88 kg/m2 27.88 kg/m2 eCW1 ([facility]) Body height 63 [in_i] 63 [in_i] eCW1 ([facility]) Body weight 157.4 [lb_av] 157.4 [lb_av] eCW1 ([facility]) Respiratory rate 16 /min 16 /min MEDENT ( [facility], ) Heart rate 84 /min 84 /min MEDENT ([facility], ) Diastolic blood pressure 90 mm[Hg] 90 mm[Hg] MEDENT ([facility]) Systolic blood pressure 140 mm[Hg] 140 mm[Hg] M EDENT ([facility], ) Body weight 69.854 kg 69.854 kg MEDENT ([facility]) Body mass index (BMI) [Ratio] 29.6 kg/m2 29.6 k g/m2 MEDENT ([facility]) Body weight 154.00 [lb_av] 154.00 [lb_av] MEDEN T ([facility]) Body height 60.5 [in_i] 60.5 [in_i] MEDENT ([facility]) 5'0.50" Body temperature 96.6 [degF] 96.6 [degF] MEDENT ([facility]) Oxygen saturation in Arterial blood by Pulse oximetry 98 % 98 % MEDENT ([facility]) Heart rate 69 /min 69 /min MEDENT ([facility]) Diastolic blood pressure 62 mm[Hg] 62 mm[Hg] MEDENT ([facility]) Systolic blood pressure 120 mm[Hg] 120 mm[Hg] M EDENT ([facility]) Diastolic blood pressure 78 mm[Hg] 78 mm[Hg] eCW1 ([facility]) Systolic blood pressure 130 mm[Hg] 130 mm[Hg] e CW1 ([facility]) Body temperature 98.1 [degF] 98.1 [degF] eCW1 ( [facility]) Respiratory rate 20 /min 20 /min eCW1 ([facility]) Heart rate 93 /min 93 /min eCW1 ([facility]) Body mass index (BMI) [Ratio] 26.57 kg/m2 26.57 kg/m2 W1 ([facility]) Body height 63 [in_i] 63 [in_i] eCW1 ([facility]) Body weight 150.0 [lb_av] 150.0 [lb_av] eCW1 ([facility]) Body temperature 98.2 [degF] 98.2 [degF] MEDENT ([facility]) Oxygen saturation in Arterial blood by Pulse oximetry 95 % 95 % MEDENT ([facility]) Respiratory rate 14 /min 14 /min MEDENT ( [facility]) Heart rate 85 /min 85 /min MEDENT ([facility], [facility]) Body mass index (BMI) [Ratio] 26.5 kg/m2 26.5 k g/m2 MEDENT ([facility]) Body height 64.5 [in_i] 64.5 [in_i] MEDENT ([facility]) 5'4.50" Body weight 157.00 [lb_av] 157.00 [lb_av] MEDEN T ([facility]) Body weight 150.00 [lb_av] 150.00 [lb_av] MEDEN [...] /min 64 /min [facility] Diastolic blood pressure 80 mm[Hg] 80 mm[Hg] MEDENT ([facility] ) Systolic blood pressure 122 mm[Hg] 122 mm[Hg] M EDENT ([facility] ) Diastolic blood pressure 78 mm[Hg] 78 mm[Hg] eCW1 ([facility]) Systolic blood pressure 132 mm[Hg] 132 mm[Hg] e CW1 ([facility]) Body temperature 97.5 [degF] 97.5 [degF] eCW1 ( [facility]) Respiratory rate 18 /min 18 /min eCW1 ([facility]) Heart rate 93 /min 93 /min eCW1 ([facility]) Body mass index (BMI) [Ratio] 27.60 kg/m2 27.60 kg/m2 W1 ([facility]) Body height 63 [in_us] 63 [in_us] eCW1 ([facility]) Body weight Measured 155.8 [lb_av] 155.8 [lb_av ] eCW1 ([facility]) Body mass index (BMI) [Ratio] 26.0 kg/m2 26.0 k g/m2 MEDENT ([facility] Heart rate 76 /min 76 /min MEDENT ([facility] Diastolic blood pressure 69 mm[Hg] 69 mm[Hg] MEDENT ([facility] Systolic blood pressure 123 mm[Hg] 123 mm[Hg] M EDENT ([facility] Body weight 154.00 [lb_av] 154.00 [lb_av] MEDEN T ([facility] Body height 64.5 [in_i] 64.5 [in_i] MEDENT ([facility] 5'4.50" Body mass index (BMI) [Ratio] 26.0 kg/m2 26.0 k g/m2 MEDENT ([facility]) Body height 64.5 [in_i] 64.5 [in_i] MEDENT ([facility]) 5'4.50" Body weight 154.00 [lb_av] 154.00 [lb_av] MEDEN T ([facility], [facility]) Body temperature 98.1 [degF] 98.1 [degF] MEDENT ([facility], [facility]) Oxygen saturation in Arterial blood by Pulse oximetry 98 % 98 % [facility], [facility]) Respiratory rate 17 /min 17 /min [facility] ( [facility], [facility]) Heart rate 76 /min 76 /min [facility] ([facility], [facility]) Diastolic blood pressure 69 mm[Hg] 69 mm[Hg] [facility] ([facility], [facility]) Systolic blood pressure 123 mm[Hg] 123 mm[Hg] [facility]) Respiratory rate 16 /min 16 /min [facility] ( [facility], ) Heart rate 72 /min 72 /min [facility] ([facility], ) Diastolic blood pressure 90 mm[Hg] 90 mm[Hg] [facility] ([facility], ) Systolic blood pressure 168 mm[Hg] 168 mm[Hg] Santosh PINTO ([facility]) Patient Treatment Plan of Care Planned Activity Planned Date Details Description Data Source (s) Paroxetine HCl 10 MG 06/07/2019 12:00:00 AM EDT [id number] ([facility])
[2020-03-10 19:44] LABS: ALT/SGPT 47 U/L (12-78); BLOOD UREA NITROGEN 11 MG/DL (7-18); CALCIUM LEVEL 8.9 MG/DL (8.8-10.2); CARBON DIOXIDE LEVEL 32 MEQ/L (21-32); CHLORIDE LEVEL 67 MEQ/L (98-107); CK-MB VALUE MASS 22.4 NG/ML (<3.6); CPK CREATINE PHOSPHOKINASE 772 U/L (26-192); CREATININE FOR GFR 0.63 MG/DL (0.55-1.30); GLOMERULAR FILTRATION RATE > 60.0 (>39); GLUCOSE, FASTING 130 MG/DL (70-100); POTASSIUM SERUM 2.9 MEQ/L (3.5-5.1); SODIUM LEVEL 107 MEQ/L (136-145)
[2020-03-10 19:45] LABS: ALBUMIN 3.7 GM/DL (3.2-5.2); BILIRUBIN,DIRECT 0.4 MG/DL (0.0-0.2); BILIRUBIN,TOTAL 1.2 MG/DL (0.2-1.0); FREE T4 1.35 NG/DL (0.76-1.46); NT-PRO BNP 1219 PG/ML (<125); TOTAL PROTEIN 6.6 GM/DL (6.4-8.2); TROPONIN I 1.16 NG/ML (< 0.10)
[2020-03-10] MEDS ORDERED: NS 500 ML IV ONE (20:00)
[2020-03-10] MEDS ORDERED: POTASSIUM CHLORIDE 10 MEQ SR TABLET PO ONE (20:30)
[2020-03-10] MEDS ORDERED: KCL 10MEQ/100ML SWI (KRUN) 10 MEQ in IV 1 EA IV ONE (20:30)
[2020-03-10] MEDS ORDERED: MOM 30ML SUSPENSION UDC PO PRN (21:30)
[2020-03-10] MEDS ORDERED: ACETAMINOPHEN TAB 650MG DOSE (2X325MG) PO PRN (21:30)
[2020-03-10] MEDS ORDERED: MAALOX 30 ML SUSP *UDC PO PRN (21:30)
--- NOTE | 2020-03-10 22:05 | HPEPDOC ---
[facility] Medical History & Physical Date of Admission Mar 10, 2020 Date of Service: Mar 10, 2020 History and Physical CHIEF COMPLAINT: ALTERED MENTAL STATUS HISTORY OF PRESENT ILLNESS: 69-year-old female with a history of hypertension, dementia, anxiety, depression, brought to ED by for a week-long history of altered mental status. Patient was seen in PCP clinic, blood work revealed Na of 106. On arrival to the ER repeat BMP showed Na of 107 with a K+ of 2.9. Patient's describes severely reduced by mouth intake of both solids and liquids for the past week. She was able to ambulate and perform some of her chores. However, he attributed the change in altered mental status to her dementia. He denies any recent falls, but he found a bruise on her R arm. He became concerned when she had 2 incontinent urines. Patient is unable to give an accurate history regarding her altered mental status. Patient's answers simple yes or no questions. However, appears confused and is unable to orient herself. Patient has been denies recent following her head injury. Nephrology was consulted from the ED who recommended hypertonic saline as well as BMP every 2 hours. Further patient had a troponin elevation of 1.16, along with a BNP of 1200. EKG showed normal sinus rhythm. She denies chest pain, shortness of breath, nausea, vomiting, diarrhea, subjective fevers and chills. I discussed with Dr. Donaldson who recommended monitoring of her cardiac enzymes and EKGs as the patient is acutely ill and is not a candidate for cardiac catheterization. She will be admitted to the ICU for management of severe hyponatremia under hospitalist service. R Femoral CVC was placed in ER. PAST MEDICAL HISTORY: Dementia HNT Anxiety Depression PAST SURGICAL HISTORY: Reviewed with patient's , none SOCIAL HISTORY: Former smoker Occasional etoh use No illicits FAMILY HISTORY: reviewed with , no pertinent hx. ALLERGIES: Please see below. REVIEW OF SYSTEMS: patient is altered, and any gathered findings specified in HPI. Denies chest pain. HOME MEDICATIONS: Please see below. PHYSICAL EXAMINATION: VITAL SIGNS: please see below General: opens eyes, understands questions but is disoriented to time and place HEENT: 3mm pupils, symmetrical, sluggish to light, sclerae clear Neck: supple, normal ROM, no JVD Respiratory: lungs CTAB, no wheeze, no rales, no crackles CVS: RRR, normal S1, S2, no murmurs Abdo: soft, no masses, no hepatosplenomegaly, BS+, no rebound tenderness Extremities: no edema, pulses 2+ MSK: no joint deformities, normal ROM Neuro: no focal neuro deficits, moving all 4 extremities, CN2-12 intact. Strength 5/5 in all 4 extremities. No nystagmus. Psych: calm, cooperative, AAO x 3 LABORATORY DATA: See below. IMAGING: CXR (03/10/20): No focal consolidation or effusion. MICROBIOLOGY: Please see below. ASSESSMENT: 69-year-old female with a history of anxiety, hypertension, anxiety and dementia presented to the ER with altered mental status, found to have a sodium of 107 secondary to reduced by mouth intake. He has subsequent dehydration. Patient also noted to have elevated troponin of 1.16, likely due to demand ischemia per Dr. Donaldson not a candidate for cardiac catheterization given severely acute illness. Will be admitted to ICU for treatment of severe hyponatremia with hypertonic saline with nephrology on consultation as well as cardiac monitoring and serial troponins. PLAN: #Severe hyponatremia with AMS 2/2 reduced PO intake - Na 107, Cl 67, BUN 11, Cr 0.63 - in context of reduced PO intake x 1 week - nephrology consulted from ER - 3% saline infusion at 40 cc/hr x 3 hours - BMP q2h - stop hypertonic saline once Na reaches 112-115 - fluid restrict, patient NPO for now given AMS - hold ACEi, HCTZ, gabapentin - neuro checks q2h - Check CT head, as onset of AMS 1 week ago - UA showing LE+, pending UCx, Blood Cx #Elevated troponin - Trop 1.16 on arrival, BNP 1200 - NSR on EKG - patient denies chest pain when asked - no prior hx of CAD - d/w Dr. Donaldson, patient not a candidate for a cath at this time - continue to monitor troponins and EKGs q4h - patient has angioedema to ASA, gave plavix 300 mg once. #Hypokalemia - replace with KCL 40 PO, krun x 4 - repeat BMP #Elevated bilirubin - T bili 1.2, D bili 0.4. - in setting of dehydration - check liver US #Dementia - AMS in setting of severe hyponatremia - per , stable prior to 1 week GI ppx: - pantoprazole 40 mg IV daily DVT ppx: lovenox. SCDs, TEDs. Lines: R femoral CVC placed on 03/10/20 by ER staff. Vital Signs Vital Signs Date Time Temp Pulse Resp B/P (MAP) Pulse Ox O2 Delivery O2 Flow Rate FiO2 03/10/20 17:17 03/10/20 16:33 98.5 73 18 99 Room Air Laboratory Data Labs 24H Laboratory Tests 2 03/10/20 17:39: Immature Granulocyte % (Auto) 0.8, Neutrophils (%) (Auto) 70.2H, Lymphocytes (%) (Auto) 16.5L, Monocytes (%) (Auto) 11.5H, Eosinophils (%) (Auto) 0.7, Basophils (%) (Auto) 0.3, Neutrophils # (Auto) 6.3, Lymphocytes # (Auto) 1.5, Monocytes # (Auto) 1.0H, Eosinophils # (Auto) 0.1, Basophils # (Auto) 0.0, Nucleated Red Blood Cells % (auto) 0.0, Urine Random Osmolality 611, Urine Random Creatinine 187.0, Urine Random Sodium 26, Osmolality 221L 03/10/20 18:49: Anion Gap 8, Glomerular Filtration Rate > 60.0, Calcium Level 8.9, Total Bilirubin 1.2H, Direct Bilirubin 0.4H, Aspartate Amino Transf (AST/SGOT) 55H, Alanine Aminotransferase (ALT/SGPT) 47, Alkaline Phosphatase 90, Total Creatine Kinase 772H, Creatine Kinase MB 22.4H, Creatine Kinase MB Relative Index 2.90, Troponin I 1.16H, QE-Ifu-[id number]-Type Natriuretic Peptide 1219H, Total Protein 6.6, Albumin 3.7, Albumin/Globulin Ratio 1.3, Thyroid Stimulating Hormone (TSH) 1.4 90, Free Thyroxine 1.35 03/10/20 19:00: Urine Color YELLOW, Urine Appearance CLEAR, Urine pH 7.0, Urine Specific [place] 1.020, Urine Protein NEGATIVE, Urine Glucose (UA) NEGATIVE, Urine Ketones NEGATIVE, Urine Blood NEGATIVE, Urine Nitrite NEGATIVE, Urine Bilirubin NEGATIVE, Urine Urobilinogen 0.2, Urine Leukocyte Esterase 1+H, Urine WBC (Auto) 5H, Urine RBC (Auto) 8H, Urine Hyaline Casts (Auto) 0, Urine Bacteria (Auto) NEGATIVE, Urine Squamous Epithelial Cells 2, Urine Mucus (Auto) SMALL, Urine Sperm (Auto) CBC/BMP Laboratory Tests 03/10/20 17:39 03/10/20 18:49 Microbiology Microbiology 03/10/20 Urine Culture, Received Pending Home Medications Scheduled Ascorbic Acid (Vitamin C) 500 Mg Tab, 1,000 MG OR DAILY Atorvastatin Calcium (Lipitor) 20 Mg Tab, 20 MG OR DAILY Gabapentin (Neurontin) 300 Mg Cap, 300 MG OR BID Hydrochlorothiazide (Hydrochlorothiazide) 25 Mg Tab, 25 MG OR DAILY Lidocaine (Lidoderm) 5 % Dis, 5 % EX PRN Lisinopril (Lisinopril) 10 Mg Tab, 10 MG OR DAILY Metaxalone (Skelaxin) 800 Mg Tab, 800 MG OR TID Vitamin B Complex (Vitamin B Complex) Tab, 1,000 MG OR DAILY Vitamin E (Vitamin E Complex Natural) 1,000 Unit Cap, 1,000 UNIT OR DAILY [Tylenol Pm] , 1 TAB OR HSP Allergies Coded Allergies: aspirin (Verified Allergy, Severe, tongue swelling, 03/10/20) Penicillins (Verified Allergy, Intermediate, rash and hives, 03/10/20) Sulfa (Sulfonamide Antibiotics) (Verified Allergy, Intermediate, RASh, hives, lip swelling, 03/10/20) felodipine (Verified Adverse Reaction, Mild, GI upset, 03/10/20) risedronate sodium (Verified Adverse Reaction, Mild, GI Upset, 03/10/20) naproxen (Verified Adverse Reaction, Unknown, GI upset, 03/10/20) MAYANK PIERCE MD Mar 10, 2020 22:05
--- OUTSIDE RECORDS SUMMARY | 2020-03-10 22:05 | CCD ---
Author Author [facility] Organization [facility] Address Unknown Phone Unavailable Care Team Providers Care Golf Ball Marker Name Role Phone DRAZEK, I TERESA PA [...] J Iman PA Unavailable Unavailable Whitten, Ghazala ACCOUNT SERVICES COORDINATOR Unavailable Unavailable Whitten, Ghazala ACCOUNT SERVICES COORDINATOR Unavailable Unavailable Whitten, Ghazala ACCOUNT SERVICES COORDINATOR Unavailable Unavailable Whitten, Ghazala ACCOUNT SERVICES COORDINATOR Unavailable Unavailable Whitten, Ghazala ACCOUNT SERVICES COORDINATOR Unavailable Unavailable Whitten, Ghazala ACCOUNT SERVICES COORDINATOR Unavailable Unavailable Whitten, Ghazala ACCOUNT SERVICES COORDINATOR Unavailable Unavailable Whitten, Ghazala ACCOUNT SERVICES COORDINATOR Unavailable Unavailable Whitten, Ghazala ACCOUNT SERVICES COORDINATOR Unavailable Unavailable Whitten, Ghazala ACCOUNT SERVICES COORDINATOR Unavailable Unavailable Whitten, Ghazala ACCOUNT SERVICES COORDINATOR Unavailable Unavailable LETTIERE, A EUGENE PA Unavailable [...] EUGENE PA Unavailable Unavailable Michelle, L Nathalie ACCOUNT SERVICES COORDINATOR Unavailable Unavailable Michelle, L Nathalie ACCOUNT SERVICES COORDINATOR Unavailable Unavailable Michelle, L Nathalie ACCOUNT SERVICES COORDINATOR Unavailable Unavailable Michelle, L Nathalie ACCOUNT SERVICES COORDINATOR Unavailable Unavailable Michelle, L Nathalie ACCOUNT SERVICES COORDINATOR Unavailable Unavailable Michelle, L Nathalie ACCOUNT SERVICES COORDINATOR Unavailable Unavailable Michelle, L Nathalie ACCOUNT SERVICES COORDINATOR Unavailable Unavailable Michelle, L Nathalie ACCOUNT SERVICES COORDINATOR Unavailable Unavailable Michelle, L Nathalie ACCOUNT SERVICES COORDINATOR Unavailable Unavailable Michelle, L Nathalie ACCOUNT SERVICES COORDINATOR Unavailable Unavailable Michelle, L Nathalie ACCOUNT SERVICES COORDINATOR Unavailable Unavailable Michelle, L Ntahalie ACCOUNT SERVICES COORDINATOR Unavailable Unavailable Michelle, L Nathalie ACCOUNT SERVICES COORDINATOR Unavailable Unavailable Michelle, L Nathalie ACCOUNT SERVICES COORDINATOR Unavailable Unavailable Michelle, L Nathalie ACCOUNT SERVICES COORDINATOR Unavailable Unavailable Michelle, L Nathalie ACCOUNT SERVICES COORDINATOR Unavailable Unavailable Michelle, L Nathalie ACCOUNT SERVICES COORDINATOR Unavailable Unavailable Michelle, L Nathalie ACCOUNT SERVICES COORDINATOR Unavailable Unavailable Michelle, L Nathalie ACCOUNT SERVICES COORDINATOR Unavailable Unavailable Michelle, L Nathalie ACCOUNT SERVICES COORDINATOR Unavailable Unavailable Michelle, L Nathalie ACCOUNT SERVICES COORDINATOR Unavailable Unavailable Michelle, L Nathalie ACCOUNT SERVICES COORDINATOR Unavailable Unavailable Re-disclosure Warning The records that [...] is protected by Article 27-F of the [facility] Public Health law. If you continue you may have access to information: Regarding HIV / AIDS; Provided by facilities licensed or operated by the [facility] Office of Mental Health; or Provided by the [facility] Office for People With Developmental Disabilities. If such information is present, then the following [facility] mandated warning applies: This information has been [...] law may result in a fine or long term sentence or both. A general authorization for the release of medical or other information is NOT sufficient authorization for further disc losure. Allergies and Adverse Reactions Type Description Substance Reaction Status Data Source(s ) aspirin Aspirin Aspirin tongue swells Active eCW1 ([facility]) Drug allergy Actonel Risedronate gi upset Active eCW1 ([facility]) Felodipine Felodipine 24 HR Felodipine 10 MG Extended Release Oral Tablet gi upset Active eCW1 ([facility]) bees, bee wax bees, bee wax bees, bee wax swelling Active eCW1 ([facility]) influenza influenza influenza nausea/hives Active eCW1 ([facility]) Family History Family Member Name Family Member Gender Family Member Status Date o f Status Description Data Source(s) Unknown Female Problem MEDENT ([facility]) Unknown Female Problem MEDENT ([facility]) Unknown Female Problem MEDENT ([facility]) Unknown Female Problem MEDENT ([facility]) Unknown Female Problem MEDENT ([facility]) Unknown Female Problem MEDENT ([facility]) Encounters Encounter Providers Location Date Indications Data Source(s ) Unknown [address] [facility] [address] [address] 03/04/2020 12:00:00 AM EST eCW1 ([facility]) Outpatient [address] [facility] [place] [address] 01/18/2020 12:00:00 AM EST eCW1 ([facility]) Outpatient Attender: Iman EVANS [facility] office [facility] n 12/18/2019 08:00:00 AM EDT MEDENT ([facility]) Outpatient Attender: Nathalie Torres/Venu/Patrick/Reindl 11/12/2019 09:00:00 AM EDT MEDENT ([facility]) Outpatient Attender: Iman EVANS [facility] n 09/17/2019 09:30:00 AM EDT MEDENT ([facility]) Outpatient [address] [facility] [place] [address] 08/03/2019 12:00:00 AM EDT eCW1 ([facility]) [facility] [place] [address] [facility] [place] [address] 06/07/2019 12:00:00 AM EDT eCW1 ([facility]) [address] [address] 06/01/2019 12:00:00 AM EDT eCW1 ([facility]) [address] [place] [address] 05/18/2019 12:00:00 AM EDT eCW1 ([facility]) Outpatient Attender: Ghazala fuentes 2019 10:45:00 AM EDT MEDENT ([facility]) [address] [address] 05/09/2019 12:00:00 AM EDT eCW1 ([facility]) Outpatient Attender: Iman EVANS [facility] 04/18/2019 07:00:00 AM EST MEDENT ([facility] [address] [place] [address] 03/20/2019 12:00:00 AM EST eCW1 ([facility]) Outpatient Referrer: TERESA EVANS 03/08/2019 03:22:00 PM EST [facility] [address] [place] [address] 03/08/2019 12:00:00 AM EST eCW1 ([facility] [address] [address] [place] [address] 03/08/2019 12:00:00 AM EST eCW1 ([facility]) Outpatient Referrer: TERESA EVANS 03/07/2019 03:47:00 PM EST [facility] Outpatient Attender: EUGENE oliveros 02/27/2019 08:10:00 AM EST MEDENT ([facility]) Outpatient Attender: Iman EVANS [facility] 01/16/2019 08:30:00 AM EST [facility] ([facility] [...] active 1 tablet in the morning eCW1 ([facility]) 10 mg 06/07/2019 12:00:00 AM EDT tablet [...] MAY REPEAT IN 10-14 DAYS SOLD: 05/12/2019 [facility] 28-10 mg 2019 12:00:00 AM EDT capsule,sprinkle,ER 24h r 30 TAKE 1 CAPSULE BY MOUTH IN THE EVENING TAKE 1 CAPSULE BY MOUTH IN THE EVENING SOLD: 05/11/2019 [facility] Permethrin 50 MG/ML Topical Cream Permethrin 2019 12:00:00 AM EDT active MEDENT ([facility]) Prednisone 20 MG Oral Tablet Prednisone 2019 12:00:00 AM EDT active MEDENT ([facility]) 20 mg 2019 12:00:00 AM EDT tablet 8 TAKE ONE TABLET BY MOUTH TWICE A DAY WITH FOOD FOR 4 DAYS TAKE ONE TABLET BY MOUTH TWICE A DAY WIT H FOOD FOR 4 DAYS SOLD: 2019 [facility] Crutches-Aluminum 02/27/2019 12:00:00 AM EST active MEDENT ([facility]) Post-Op Shoe/Soft TOP/Women/Large 02/27/2019 12:00:00 AM EST active MEDENT ([facility], [facility]) 20 mg 01/31/2019 12:00:00 AM EST tablet [...] type / Coverage type Policy ID Covered libertarian ID Covered libertarian's relationship to hawley Policy Hawley Plan Information [facility] [id number] MS2 [id number] MEDICARE [id number] SP [id number] W91 [facility] [id number] S [id number] MEDICARE C [id number] S [id number] ANSI-Medicare Part B [id number] ANSI-Commercial [id number] ANSI-Commercial [id number] [facility] [id number] [facility] [id number] MEDICARE [id number] A ANSI-Commercial [id number] ANSI-Commercial [id number] ANSI-Medicare Part B [id number] ANSI-Medicare Part B [id number] ANSI-Commercial [id number] ANSI-Commercial [id number] ANSI-Commercial [id number] ANSI-Commercial [id number] ANSI-Medicare Part B [id number] ANSI-Medicare Part B [id number] ANSI-Commercial [id number] ANSI-Commercial [id number] MEDICARE [id number] W91 [facility] [id number] [facility] [id number] ANSI-Medicare Part B [id number] ANSI-Commercial [id number] ANSI-Commercial [id number] ANSI-Medicare Part B [id number] ANSI-Commercial [id number] ANSI-Commercial [id number] ANSI-Medicare Part B [id number] ANSI-Commercial [id number] ANSI-Commercial [id number] ANSI-Commercial [id number] ANSI-Commercial [id number] ANSI-Medicare Part B [id number] ANSI-Commercial [id number] ANSI-Commercial [id number] ANSI-Medicare Part B [id number] r Commercial [id number] Self [id number] 0001 [facility] Commercial [id number] Family Dependent [id number] Medicare - [facility] Medicare Primary [id number] Self [id number] ANSI-Commercial [id number] ANSI-Commercial [id number] ANS-Medicare Part B [id number] ANSI-Commercial [id number] ANS-Medicare Part B [id number] ANSI-Commercial [id number] [employer] [id number] HU2 [id number] [employer] Commercial [id number] Family Dependent [id number] Medicare - [facility] Medicare Primary [id number] Self [id number] [place] [id number] Self [id number] [place] (pr) [facility] Part [facility] [id number] Family Dependent [id number] Pma Ins (WC) Workers Compensation [id number] Self [id number] [place] Medigap Part B [id number] Family Dependent [id number] Medicare Natl Gov't Servi Medicare Primary [id number] Self [id number] [place] Part B [id number] Self [id number] [employer] Commercial [id number] Family Dependent [id number] Medicare - [facility] Medicare Primary [id number] Self [id number] [employer] Commercial [id number] Family Dependent [id number] Medicare - [facility] Medicare Primary [id number] Self [id number] [place] Part B [id number] Self [id number] MEDICARE [id number] SP [id number] A [employer] [id number] HU2 [id number] [place] Med[place] Part B [id number] Self [id number] MEDICARE C [id number] S [id number] A [employer] PPO O [id number] S [id number] Medicare Natl Gov't Servi Medigap Part B [id number] Self [id number] [employer] Commercial [id number] Family Dependent [id number] MEDICARE [id number] SP [id number] A [employer] [id number] HU2 [id number] [place] Part B [id number] Self [id number] [place] Med[place] Part B [id number] Self [id number] Medicare Natl Gov't Servi Medigap Part B Self [employer] Commercial Family Dependent Medicare [facility] Part B Self [employer] (pr) Commercial Family Dependent Pma Ins (WC) Workers Compensation Self [employer] O [id number] P [id number] [employer]NAG[employer] P [id number] S [id number] Problems, Conditions, and Diagnoses Code Display Name Description Problem Type Effective Dates Data Source(s) 66069731 Obstructive sleep apnea syndrome Obstructive sle ep apnea syndrome Problem 11/12/2019 12:00:00 AM EDT MEDENT ([facility] ) Z12.11 [id number] Colon cancer screening Problem 08/03/2019 12 :00:00 AM EDT eCW1 ([facility]) L28.1 [id number] 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/2019 12:00:0 0 AM EDT eCW1 ([facility]) Surgeries/Procedures Procedure Description Date Indications Data Source(s) COLONOSCOPY W/BIOPSY SINGLE/MULTIPLE 08/03/2019 12:00: 00 AM EDT eCW1 ([facility]) Office Visit, Est Pt., Level 4 PC 03/20/2019 12:00:00 AM EST eCW1 ([facility]) Results ID Date Data Source INSULIN LEVEL 03/20/2019 12:00:00 AM EST eCW1 ([facility]) Name Value Range Interpretation Code Description Data Neida rce(s) Supporting Document(s) 42.2 2.6-24.9 INSULIN LEVEL eCW1 ([facility]) ID Date Data Source [id number] 03/20/2019 12:00:00 AM EST eCW1 ([facility]) Name Value Range Interpretation Code Description Data Neida rce(s) Supporting Document(s) Hemoglobin A1c/Hemoglobin.total in Blood 6.2 HEMOGLOBIN A1c eCW1 ([facility]) ID Date Data Source Comprehensive Metabolic Profile (CMP) 03/20/2019 12:00:00 AM EST eCW1 ([facility]) Name Value Range Interpretation Code Description Data Neida rce(s) Supporting Document(s) 105 70-100 GLUCOSE, FASTING eCW1 ([facility]) > 60.0 >45 GLOMERULAR FILTRATION RATE eCW 1 ([facility]) 140 136-145 SODIUM LEVEL eCW1 ([facility]) 4.6 3.5-5.1 POTASSIUM SERUM eCW1 ([facility]) 19 7-18 BLOOD UREA NITROGEN eCW1 ([facility]) 0.97 0.55-1.30 CREATININE FOR GFR eCW1 ([facility]) 29 21-32 CARBON DIOXIDE LEVEL eCW1 ([facility]) 9.3 8.8-10.2 CALCIUM LEVEL eCW1 ([facility]) 22 7-37 AST/SGOT eCW1 ([facility]) 106 98-107 CHLORIDE LEVEL eCW1 ([facility]) 98 45-117 ALKALINE PHOSPHATASE eCW1 ([facility]) 7.0 6.4-8.2 TOTAL PROTEIN eCW1 ([facility]) 25 12-78 ALT/SGPT eCW1 ([facility]) 3.7 3.2-5.2 ALBUMIN eCW1 ([facility] includes the [facility]) 0.4 0.2-1.0 BILIRUBIN,TOTAL eCW1 ([facility]) 1.12 1.00-1.93 ALBUMIN/GLOBULIN RATIO eCW1 ([facility]) ID Date Data Source CBC with Differential 03/20/2019 12:00:00 AM EST eCW1 ([facility]) Name Value Range Interpretation Code Description Data Neida rce(s) Supporting Document(s) 7.6 4.0-10.0 WHITE BLOOD COUNT eCW1 ([facility]) 4.62 4.00-5.40 RED BLOOD COUNT eCW1 ([facility]) 31.2 27.0-33.0 MEAN CORPUSCULAR HEMOGLOB IN eCW1 ([facility]) 44.0 36.0-47.0 HEMATOCRIT eCW1 (Critical access hospital) 14.4 12.0-15.5 HEMOGLOBIN eCW1 (Critical access hospital) 95.2 80.0-96.0 MEAN CORPUSCULAR VOLUME e CW1 ([facility]) 67.5 36.0-66.0 NEUTROPHILS % eCW1 ([facility]) 12.9 11.5-14.5 RED CELL DISTRIBUTION WID TH eCW1 ([facility]) 219 150-450 PLATELET COUNT, AUTOMATED eCW1 ([facility]) 32.7 32.0-36.5 MEAN CORPUSCULAR HGB CONC eCW1 ([facility]) 19.9 24.0-44.0 LYMPH % eCW1 ([facility]) 5.1 1.5-8.5 NEUTROPHILS # eCW1 ([facility]) 9.9 0.0-5.0 MONO % eCW1 ([facility] includes the [facility]) 0.5 0.0-1.0 BASO % eCW1 ([facility] includes the [facility]) 1.7 0.0-3.0 EOS % eCW1 ([facility] includes the [facility]) 0.8 0.0-0.8 MONO # eCW1 ([facility] includes the [facility]) 0.0 0.0-0.2 BASO # eCW1 ([facility] includes the [facility]) 0.1 0.0-0.5 EOS # eCW1 ([facility] includes the [facility]) 1.5 1.5-5.0 LYMPH # eCW1 ([facility] includes the [facility]) Procedure Social History Code Duration Value Status Description Data Source(s ) Smoking 01/18/2020 12:00:00 AM EST Former Smoker completed Former Smoker eCW1 ([facility]) Smoking 01/18/2020 12:00:00 AM EST Former Smoker completed Former Smoker eCW1 ([facility]) Smoking 11/12/2019 12:00:00 AM EDT Patient is a former smoker completed Patient is a former smoker MEDENT ([facility]) Smoking 08/03/2019 12:00:00 AM EDT Former Smoker completed Former Smoker eCW1 ([facility]) Vital Signs ID Date Data Source UNK Name Value Range Interpretation Code Description Data Source(s) Diastolic blood pressure 82 mm[Hg] 82 mm[Hg] eCW1 ([facility]) Systolic blood pressure 140 mm[Hg] 140 mm[Hg] e CW1 ([facility]) Body temperature 97.2 [degF] 97.2 [degF] eCW1 ( [facility]) Respiratory rate 18 /min 18 /min eCW1 ([facility]) Heart rate 77 /min 77 /min eCW1 ([facility]) Body mass index (BMI) [Ratio] 27.88 kg/m2 27.88 kg/m2 eCW1 ([facility]) Body height 63 [in_i] 63 [in_i] eCW1 ([facility]) Body weight 157.4 [lb_av] 157.4 [lb_av] eCW1 ([facility]) Respiratory rate 16 /min 16 /min MEDENT ( [facility], ) Heart rate 84 /min 84 /min MEDENT ([facility], ) Diastolic blood pressure 90 mm[Hg] 90 mm[Hg] MEDENT ([facility]) Systolic blood pressure 140 mm[Hg] 140 mm[Hg] M EDENT ([facility], ) Body weight 69.854 kg 69.854 kg MEDENT ([facility]) Body mass index (BMI) [Ratio] 29.6 kg/m2 29.6 k g/m2 MEDENT ([facility]) Body weight 154.00 [lb_av] 154.00 [lb_av] MEDEN T ([facility]) Body height 60.5 [in_i] 60.5 [in_i] MEDENT ([facility]) 5'0.50" Body temperature 96.6 [degF] 96.6 [degF] MEDENT ([facility]) Oxygen saturation in Arterial blood by Pulse oximetry 98 % 98 % MEDENT ([facility]) Heart rate 69 /min 69 /min MEDENT ([facility]) Diastolic blood pressure 62 mm[Hg] 62 mm[Hg] MEDENT ([facility]) Systolic blood pressure 120 mm[Hg] 120 mm[Hg] M EDENT ([facility]) Diastolic blood pressure 78 mm[Hg] 78 mm[Hg] eCW1 ([facility]) Systolic blood pressure 130 mm[Hg] 130 mm[Hg] e CW1 ([facility]) Body temperature 98.1 [degF] 98.1 [degF] eCW1 ( [facility]) Respiratory rate 20 /min 20 /min eCW1 ([facility]) Heart rate 93 /min 93 /min eCW1 ([facility]) Body mass index (BMI) [Ratio] 26.57 kg/m2 26.57 kg/m2 W1 ([facility]) Body height 63 [in_i] 63 [in_i] eCW1 ([facility]) Body weight 150.0 [lb_av] 150.0 [lb_av] eCW1 ([facility]) Body temperature 98.2 [degF] 98.2 [degF] MEDENT ([facility], [facility]) Oxygen saturation in Arterial blood by Pulse oximetry 95 % 95 % MEDENT ([facility], [facility]) Respiratory rate 14 /min 14 /min MEDENT ( [facility], [facility]) Heart rate 85 /min 85 /min MEDENT ([facility], [facility]) Body mass index (BMI) [Ratio] 26.5 kg/m2 26.5 k g/m2 MEDENT ([facility], [facility]) Body height 64.5 [in_i] 64.5 [in_i] MEDENT ([facility], [facility]) 5'4.50" Body weight 157.00 [lb_av] 157.00 [lb_av] MEDEN T ([facility], [facility]) Body weight 150.00 [lb_av] 150.00 [lb_av] MEDEN T ([facility], ) Respiratory rate 16 /min 16 /min MEDENT ( [facility], ) Heart rate 64 /min 64 /min MEDENT ([facility], ) Diastolic blood pressure 80 mm[Hg] 80 mm[Hg] MEDENT ([facility], ) Systolic blood pressure 122 mm[Hg] 122 mm[Hg] M EDENT ([facility], ) Respiratory rate 16 /min 16 /min MEDENT ( [facility], ) Heart rate 64 /min 64 /min [facility] Diastolic blood pressure 80 mm[Hg] 80 mm[Hg] MEDENT ([facility], ) Systolic blood pressure 122 mm[Hg] 122 mm[Hg] M EDENT ([facility], ) Diastolic blood pressure 78 mm[Hg] 78 mm[Hg] eCW1 ([facility]) Systolic blood pressure 132 mm[Hg] 132 mm[Hg] e CW1 ([facility]) Body temperature 97.5 [degF] 97.5 [degF] eCW1 ( [facility]) Respiratory rate 18 /min 18 /min eCW1 ([facility]) Heart rate 93 /min 93 /min eCW1 ([facility]) Body mass index (BMI) [Ratio] 27.60 kg/m2 27.60 kg/m2 W1 ([facility]) Body height 63 [in_us] 63 [in_us] eCW1 ([facility]) Body weight Measured 155.8 [lb_av] 155.8 [lb_av ] eCW1 ([facility]) Body mass index (BMI) [Ratio] 26.0 [...] [Ratio] 26.0 kg/m2 26.0 k g/m2 MEDENT ([facility], [facility]) Body height 64.5 [in_i] 64.5 [in_i] MEDENT ([facility]) 5'4.50" Body weight 154.00 [lb_av] 154.00 [lb_av] MEDEN T ([facility], [facility]) Body temperature 98.1 [degF] 98.1 [degF] MEDENT ([facility], [facility]) Oxygen saturation in Arterial blood by Pulse oximetry 98 % 98 % [facility] ([facility], [facility]) Respiratory rate 17 /min 17 /min [facility] ( [facility], [facility]) Heart rate 76 /min 76 /min [facility] ([facility], [facility]) Diastolic blood pressure 69 mm[Hg] 69 mm[Hg] [facility] ([facility], [facility]) Systolic blood pressure 123 mm[Hg] 123 mm[Hg] [facility] ([facility], [facility]) Respiratory rate 16 /min 16 /min [facility] ( [facility], ) Heart rate 72 /min 72 /min [facility] ([facility], ) Diastolic blood pressure 90 mm[Hg] 90 mm[Hg] [facility] ([facility], ) Systolic blood pressure 168 mm[Hg] 168 mm[Hg] Santosh PINTO ([facility]) Patient Treatment Plan of Care Planned Activity Planned Date Details Description Data Source (s) Paroxetine HCl 10 MG 06/07/2019 12:00:00 AM EDT [id number] ([facility])
[2020-03-10] MEDS: DOCUSATE SODIUM 100MG CAPSULE PO SCH (22:13)
[2020-03-10] MEDS ORDERED: ASPIRIN 300 MG SUPP PR ONE (22:45)
[2020-03-10] MEDS ORDERED: CLOPIDOGREL 300 MG TAB (PLAVIX) PO STA (23:05)
[2020-03-10 23:06] LABS: BLOOD UREA NITROGEN 10 MG/DL (7-18); CARBON DIOXIDE LEVEL 30 MEQ/L (21-32); CHLORIDE LEVEL 74 MEQ/L (98-107); CK-MB VALUE MASS 18.8 NG/ML (<3.6); CORTISOL BASELINE 15.8 UG/DL (4.3-22.4); CPK CREATINE PHOSPHOKINASE 630 U/L (26-192); CREATININE FOR GFR 0.63 MG/DL (0.55-1.30); GLOMERULAR FILTRATION RATE > 60.0 (>39); GLUCOSE, FASTING 108 MG/DL (70-100); MB/CK RELATIVE INDEX 2.98 (< OR =4); POTASSIUM SERUM 2.8 MEQ/L (3.5-5.1); SODIUM LEVEL 111 MEQ/L (136-145); TROPONIN I 1.23 NG/ML (< 0.10)
[2020-03-10 23:14] LABS: RSV AMPLIFICATION NEGATIVE (NEGATIVE)
[2020-03-10] MEDS: KCL 10MEQ/100ML SWI (KRUN) 10 MEQ in IV 1 EA IV SCH (23:31)
[2020-03-11] VITALS (22 sets, daily range): BP systolic 82–131; BP diastolic 50–75
[2020-03-11] MEDS: KCL 10MEQ/100ML SWI (KRUN) 10 MEQ in IV 1 EA IV SCH (00:39)
--- NOTE | 2020-03-11 00:39 | REPVR ---
PROCEDURE INFORMATION: Exam: US Abdomen, Limited; Right Upper Quadrant Exam date and time: 03/10/2020 11:50 PM Age: 69 years old Clinical indication: Abnormal findings; Abnormal lab test; Abnormal function test of other organs/systems; Prior surgery; Surgery date: 6+ months; Surgery type: Cholecystectomy; Additional info: Elevated bilirubin TECHNIQUE: Imaging protocol: US abdomen. Real time ultrasound with image documentation. Limited exam focused on the right upper quadrant. COMPARISON: No relevant prior studies available. FINDINGS: Liver: The echogenicity of the liver is within normal limits. No liver lesion is identified from the images obtained. The contour of the liver is smooth. Gallbladder: There has been a cholecystectomy. There is no fluid collection in the gallbladder fossa. Common bile duct: The common bile duct is normal in caliber and at the level of the steven hepatis measures 7 mm in diameter. Pancreas: The imaged portion of the pancreas is unremarkable. Right kidney: The right kidney is normal in appearance and measures 10.7 cm in length. There is no renal cortical thinning. The renal cortical echogenicity is within normal limits. No renal lesion is seen. There is no hydronephrosis. No obvious stones are seen in the renal collecting system. Intraperitoneal space: No soft tissue fluid collection is noted. IMPRESSION: Status post cholecystectomy. No intrahepatic or extrahepatic biliary ductal dilation identified. Electronically signed by: Juan David Shoemaker On 03/11/2020 00:39:19 AM
--- NOTE | 2020-03-11 00:46 | REPVR ---
PROCEDURE INFORMATION: Exam: CT Head Without Contrast Exam date and time: 03/10/2020 10:15 PM Age: 69 years old Clinical indication: Altered mental status/memory loss; Confusion or disorientation; Additional info: AMS TECHNIQUE: Imaging protocol: Computed tomography of the head without contrast. Radiation optimization: All CT scans at this facility use at least one of these dose optimization techniques: automated exposure control; mA and/or kV adjustment per patient size (includes targeted exams where dose is matched to clinical indication); or iterative reconstruction. COMPARISON: MRI-Brain without Contrast 08/14/2016 8:57 AM FINDINGS: Brain: There is no CT evidence for an acute large vessel territorial infarct. No acute intracranial hemorrhage is seen. No mass effect, midline shift, or herniation is noted. Incidental note is made of calcifications in the globus pallidus bilaterally. There are mild non-specific foci of low attenuation in the periventricular white matter, which are likely the sequela of chronic small vessel ischemic injury. Cerebral ventricles: The ventricles are mildly dilated in proportion to the sulci, which is compatible with mild generalized cerebral volume loss that is similar in appearance compared to the prior MRI brain on 08/14/2016. Bones/joints: The skull is intact. No suspicious osteolytic or osteoblastic lesion. 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 Paranasal sinuses: The imaged portions of the sinuses are well-aerated. No air-fluid levels are noted in the sinuses. Mastoid air cells: Clear. Orbital cavity: The globes and orbits are intact and normal in appearance. Soft tissues: Unremarkable. No soft tissue fluid collection. IMPRESSION: 1. No acute intracranial abnormality. 2. Mild cerebral atrophy and chronic microangiopathic changes. Electronically signed by: Juan David Shoemaker On 03/11/2020 00:46:47 AM
[2020-03-11 00:47] LABS: BLOOD UREA NITROGEN 10 MG/DL (7-18); CREATININE FOR GFR 0.63 MG/DL (0.55-1.30); GLUCOSE, FASTING 97 MG/DL (70-100)
[2020-03-11 00:48] LABS: CARBON DIOXIDE LEVEL 24 MEQ/L (21-32); CHLORIDE LEVEL 77 MEQ/L (98-107); GLOMERULAR FILTRATION RATE > 60.0 (>39); POTASSIUM SERUM 2.8 MEQ/L (3.5-5.1); SODIUM LEVEL 108 MEQ/L (136-145); TROPONIN I 0.76 NG/ML (< 0.10)
[2020-03-11] MEDS ORDERED: SODIUM CHLORIDE 3% 500 ML IV SCH (01:15)
[2020-03-11] MEDS ORDERED: PARO5TAB PO (01:28)
[2020-03-11] MEDS ORDERED: DONE10TA90 PO (01:28)
[2020-03-11] MEDS ORDERED: NAMZ1CAP2 PO (01:28)
[2020-03-11] MEDS ORDERED: HYDR25TAB PO (01:28)
[2020-03-11] MEDS ORDERED: ATOR40TA75 PO (01:28)
[2020-03-11] MEDS ORDERED: LISI-538 PO (01:28)
[2020-03-11] MEDS ORDERED: KCL 20MEQ IN 100ML SWI (KRUN) 20 MEQ in IV 1 EA IV ONE ×6 (02:00→23:00)
[2020-03-11 03:06] LABS: BLOOD UREA NITROGEN 9 MG/DL (7-18); CALCIUM LEVEL 8.1 MG/DL (8.8-10.2); CARBON DIOXIDE LEVEL 29 MEQ/L (21-32); CHLORIDE LEVEL 77 MEQ/L (98-107); GLOMERULAR FILTRATION RATE > 60.0 (>39); GLUCOSE, FASTING 100 MG/DL (70-100); MAGNESIUM LEVEL 1.7 MG/DL (1.8-2.4); POTASSIUM SERUM 3.1 MEQ/L (3.5-5.1); SODIUM LEVEL 113 MEQ/L (136-145)
[2020-03-11] MEDS ORDERED: MAGNESIUM OXIDE 400 MG TAB (MAG-OX) PO ONE (03:30)
[2020-03-11] MEDS: KCL 20MEQ IN 100ML SWI (KRUN) 20 MEQ in IV 1 EA IV SCH ×4 (03:43→04:49)
[2020-03-11 05:10] LABS: BLOOD UREA NITROGEN 9 MG/DL (7-18); CALCIUM LEVEL 8.2 MG/DL (8.8-10.2); CARBON DIOXIDE LEVEL 29 MEQ/L (21-32); CHLORIDE LEVEL 81 MEQ/L (98-107); CREATININE FOR GFR 0.64 MG/DL (0.55-1.30); GLOMERULAR FILTRATION RATE > 60.0 (>39); GLUCOSE, FASTING 90 MG/DL (70-100); POTASSIUM SERUM 3.7 MEQ/L (3.5-5.1); SODIUM LEVEL 115 MEQ/L (136-145)
[2020-03-11 07:11] LABS: BASO % 0.2 % (0.0-1.0); EOS # 0.1 10^3/uL (0.0-0.5); EOS % 1.6 % (0.0-3.0); HEMATOCRIT 40.4 % (36.0-47.0); HEMOGLOBIN 15.1 g/dl (12.0-15.5); LYMPH # 1.3 10^3/uL (1.5-5.0); LYMPH % 15.2 % (24.0-44.0); MEAN CORPUSCULAR HEMOGLOBIN 31.6 pg (27.0-33.0); MEAN CORPUSCULAR HGB CONC 37.4 g/dl (32.0-36.5); MEAN CORPUSCULAR VOLUME 84.5 fl (80.0-96.0); MONO # 0.9 10^3/uL (0.0-0.8); MONO % 10.8 % (0.0-5.0); NEUTROPHILS # 6.1 10^3/uL (1.5-8.5); NEUTROPHILS % 71.4 % (36.0-66.0); PLATELET COUNT, AUTOMATED 241 10^3/uL (150-450); RED BLOOD COUNT 4.78 10^6/uL (4.00-5.40); WHITE BLOOD COUNT 8.5 10^3/uL (4.0-10.0)
[2020-03-11 08:04] LABS: TROPONIN I 1.28 NG/ML (< 0.10)
[2020-03-11 08:04] LABS: ALBUMIN 3.4 GM/DL (3.2-5.2); ALT/SGPT 43 U/L (12-78); BILIRUBIN,TOTAL 1.1 MG/DL (0.2-1.0); BLOOD UREA NITROGEN 8 MG/DL (7-18); CALCIUM LEVEL 8.2 MG/DL (8.8-10.2); CARBON DIOXIDE LEVEL 26 MEQ/L (21-32); CHLORIDE LEVEL 84 MEQ/L (98-107); CREATININE FOR GFR 0.63 MG/DL (0.55-1.30); GLOMERULAR FILTRATION RATE > 60.0 (>39); GLUCOSE, FASTING 89 MG/DL (70-100); MAGNESIUM LEVEL 1.9 MG/DL (1.8-2.4); POTASSIUM SERUM 4.2 MEQ/L (3.5-5.1); SODIUM LEVEL 118 MEQ/L (136-145)
[2020-03-11] MEDS: DOCUSATE SODIUM 100MG CAPSULE PO SCH ×2 (08:46→20:49)
[2020-03-11 08:47] LABS: CORTISOL AM 10.6 UG/DL (4.3-22.4)
[2020-03-11] MEDS: ENOXAPARIN 40MG/0.4ML SYRINGE (J1650 PER 10MG) SC SCH (08:48)
[2020-03-11 08:56] LABS: SODIUM,RANDOM URINE 11 MEQ/L
[2020-03-11 08:59] LABS: HEPATITIS B SURFACE ANTIGEN NEGATIVE (NEGATIVE)
[2020-03-11] MEDS ORDERED: PANTOPRAZOLE 40MG VIAL (C9113 PER 1) IV SCH (09:00)
--- NOTE | 2020-03-11 09:00 | ECGEPIP ---
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
--- NOTE | 2020-03-11 09:04 | ECGEPIP ---
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
[2020-03-11 09:27] LABS: HEPATITIS B CORE ANTIBODY IGM NEGATIVE (NEGATIVE); HEPATITIS C VIRUS ABY INDEX < 0.0 INDEX (<0.8)
[2020-03-11 09:29] LABS: HEPATITIS A ANTIBODY IGM NEGATIVE (NEGATIVE)
[2020-03-11 09:35] LABS: OSMOLALITY URINE 82 MOSM/KG (500-800)
[2020-03-11] MEDS ORDERED: DESMOPRESSIN ACETATE 2 MCG in NS 50 ML IV ONE (11:00)
[2020-03-11 14:58] LABS: BLOOD UREA NITROGEN 9 MG/DL (7-18); CALCIUM LEVEL 8.4 MG/DL (8.8-10.2); CARBON DIOXIDE LEVEL 27 MEQ/L (21-32); CHLORIDE LEVEL 86 MEQ/L (98-107); CREATININE FOR GFR 0.62 MG/DL (0.55-1.30); GLOMERULAR FILTRATION RATE > 60.0 (>39); GLUCOSE, FASTING 110 MG/DL (70-100); SODIUM LEVEL 120 MEQ/L (136-145)
[2020-03-11 16:26] LABS: BLOOD UREA NITROGEN 12 MG/DL (7-18); CALCIUM LEVEL 8.8 MG/DL (8.8-10.2); CARBON DIOXIDE LEVEL 29 MEQ/L (21-32); CHLORIDE LEVEL 87 MEQ/L (98-107); GLOMERULAR FILTRATION RATE > 60.0 (>39); GLUCOSE, FASTING 136 MG/DL (70-100); POTASSIUM SERUM 3.9 MEQ/L (3.5-5.1); SODIUM LEVEL 120 MEQ/L (136-145)
--- NOTE | 2020-03-11 18:53 | IPNPDOC ---
Date Seen The patient was seen on 03/11/20. Progress Note SUBJECTIVE: BP soft, given 500 cc bolus later in day. Nephrology started desmopressin due to incr U/O 100-150 cc/hr earlier. Currently 30 mL/hr, decreased since initiation. Pleasantly confused at times, follows commands. at bedside. Cardiology consulted to come see today, discussed case with Dr. Donaldson on phone. OBJECTIVE: PHYSICAL EXAMINATION: VITAL SIGNS: please see below General: AAOx1, following commands. In NAD sitting up in bed HEENT: 3mm pupils, symmetrical, sluggish to light, sclerae clear Neck: supple, normal ROM, no JVD Respiratory: lungs CTAB, no wheeze, no rales, no crackles CVS: RRR, normal S1, S2, no murmurs Abdo: soft, no masses, no hepatosplenomegaly, BS+, no rebound tenderness Extremities: no edema, pulses 2+ MSK: no joint deformities, normal ROM Neuro: no focal neuro deficits, moving all 4 extremities, CN2-12 intact. Strength 5/5 in all 4 extremities. No nystagmus. Psych: calm, cooperative, pleasantly confused LABORATORY DATA: See below. IMAGING: CT head: 1. No acute intracranial abnormality. 2. Mild cerebral atrophy and chronic microangiopathic changes. CXR (03/10/20): No focal consolidation or effusion. MICROBIOLOGY: Please see below. ASSESSMENT: 69-year-old female with a history of anxiety, hypertension, anxiety and dementia presented to the ER with altered mental status, found to have a sodium of 107 secondary to reduced by mouth intake. He has subsequent dehydration. Patient also noted to have elevated troponin of 1.16, likely due to demand ischemia per Dr. Donaldson not a candidate for cardiac catheterization given severely acute illness. Will be admitted to ICU for treatment of severe hyponatremia with hypertonic saline with nephrology on consultation as well as cardiac monitoring and serial troponins. PLAN: #Severe hyponatremia with AMS 2/2 reduced PO intake vs. SIADH -Sodium incr to 118 this AM--> 120 this afternoon, stopped 3% saline overnight and fluid restricting currently -Started desmopressin today due to incr U/O 100-150 cc/hr -Holding ACEi, HCTZ, gabapentin -CT head above -Monitor BMP Q12H -Nephrology following #Hypotension likely 2/2 to fluid loss, ? SIADH vs. cardiac issue -S/p 500 cc bolus for BP 82-90/83-86 mmHg during the day today -U/O high as mentioned above but is improving -Hopefully will improve -Keep off all antihypertensive meds above -Monitor on tele -Treatment of #Elevated troponin, ? acute septal IA on ECG - Trop incr further to 1.28 - ECG from the AM in chart - patient denies chest pain, incr SOB - no prior hx of CAD - D/w Dr. Donaldson, patient not a candidate for a cath at this time. To see patient today - patient has angioedema to ASA, gave plavix 300 mg once, started on home statin -Cardiology consulted. #Hypokalemia- resolved -S/p KCL 40 PO, krun x 4 on admission -WNL this AM -repeat BMP in AM #Elevated bilirubin - Bili slightly improved in setting of dehydration - Liver US neg -F/u CMP in AM #Dementia -AMS in setting of severe hyponatremia -per , stable prior to 1 week ago -Continue to monitor closely -redirect whenever possible -Restart donepezil #GI ppx: - pantoprazole 40 mg IV daily #DVT ppx - lovenox. SCDs, TEDs. Lines: R femoral CVC placed on 03/10/20 by ER staff. DISPOSITION: Remains in ICU, improving slowly. Will need PT/OT when able to participate. Plan is hopefully discharge home with but will know more after PT eval. TOTAL CRITICAL CARE TIME SPENT TREATING PATIENT: 40 MINS VS, I&O, 24H, Fishbone Vital Signs/I&O Vital Signs Date Time Temp Pulse Resp B/P (MAP) Pulse Ox O2 Delivery O2 Flow Rate FiO2 03/11/20 18:00 72 16 90/58 (69) 96 Room Air 03/11/20 12:00 97.2 I&O- Last 24 Hours up to 6 AM 03/11/20 05:59 Intake Total 910 ml Output Total 625 ml Balance 285 ml Laboratory Data 24H LABS Laboratory Tests 2 03/10/20 19:00: Urine Color YELLOW, Urine Appearance CLEAR, Urine pH 7.0, Urine Specific [place] 1.020, Urine Protein NEGATIVE, Urine Glucose (UA) NEGATIVE, Urine Ketones NEGATIVE, Urine Blood NEGATIVE, Urine Nitrite NEGATIVE, Urine Bilirubin NEGATIVE, Urine Urobilinogen 0.2, Urine Leukocyte Esterase 1+H, Urine WBC (Auto) 5H, Urine RBC (Auto) 8H, Urine Hyaline Casts (Auto) 0, Urine Bacteria (Auto) NEGATIVE, Urine Squamous Epithelial Cells 2, Urine Mucus (Auto) SMALL, Urine Sperm (Auto) 03/10/20 21:24: Anion Gap 7L, Glomerular Filtration Rate > 60.0, Calcium Level 8.0L, Total Creatine Kinase 630H, Creatine Kinase MB 18.8H, Creatine Kinase MB Relative Index 2.98, Troponin I 1.23H, Cortisol Baseline 15.8, Coronavirus (COVID- 19)(PCR) NEGATIVE, Influenza Type A (RT-PCR) NEGATIVE, Influenza Type B (RT-PCR) NEGATIVE, Respiratory Syncytial Virus (PCR) NEGATIVE 03/11/20 00:01: Anion Gap 7L, Glomerular Filtration Rate > 60.0, Calcium Level 8.0L, Troponin I 0.76#H 03/11/20 01:56: Anion Gap 7L, Glomerular Filtration Rate > 60.0, Calcium Level 8.1L, Magnesium Level 1.7L, Ammonia 22 03/11/20 04:15: Anion Gap 5L, Glomerular Filtration Rate > 60.0, Calcium Level 8.2L 03/11/20 06:02: Anion Gap 8, Glomerular Filtration Rate > 60.0, Calcium Level 8.2L, Magnesium Level 1.9, Total Bilirubin 1.1H, Aspartate Amino Transf (AST/SGOT) 48H, Alanine Aminotransferase (ALT/SGPT) 43, Alkaline Phosphatase 81, Total Protein 6.0L, Albumin 3.4, Albumin/Globulin Ratio 1.3 03/11/20 06:03: Immature Granulocyte % (Auto) 0.8, Neutrophils (%) (Auto) 71.4H, Lymphocytes (%) (Auto) 15.2L, Monocytes (%) (Auto) 10.8H, Eosinophils (%) (Auto) 1.6, Basophils (%) (Auto) 0.2, Neutrophils # (Auto) 6.1, Lymphocytes # (Auto) 1.3L, Monocytes # (Auto) 0.9H, Eosinophils # (Auto) 0.1, Basophils # (Auto) 0.0, Nucleated Red Blood Cells % (auto) 0.0, Troponin I 1.28#H, Cortisol AM Sample 10.6, Hepatitis A IgM Antibody NEGATIVE, Hepatitis B Surface Antigen NEGATIVE, Hepatitis B Core IgM Antibody NEGATIVE, Hepatitis C Antibody Index < 0.0 03/11/20 08:12: Urine Random Osmolality 82L, Urine Random Sodium 11 03/11/20 11:49: Anion Gap 7L, Glomerular Filtration Rate > 60.0, Calcium Level 8.4L 03/11/20 15:41: Anion Gap 4L, Glomerular Filtration Rate > 60.0, Calcium Level 8.8 CBC/BMP Laboratory Tests 03/10/20 21:24 03/11/20 00:01 03/11/20 01:56 03/11/20 04:15 03/11/20 06:02 03/11/20 06:03 03/11/20 11:49 03/11/20 15:41 Microbiology Microbiology 03/10/20 Blood Culture, Received Pending 03/10/20 Blood Culture, Received Pending 03/10/20 Urine Culture - Final, Complete Current Medications Current Medications Medications (Trade) Dose Ordered Sig/Katia Route PRN Reason Start Time Stop Time Status Last Admin Dose Admin Acetaminophen (Tylenol Tab) 650 mg Q4H PRN PO PAIN OR FEVER 03/10/20 21:30 Al Hydrox/Mg Hydrox/Simethicone (Mylanta) 30 ml DAILY PRN PO DYSPEPSIA 03/10/20 21:30 Clopidogrel Bisulfate (PLAVix) 300 mg STAT STAT PO 03/10/20 23:05 03/10/20 23:08 DC 03/10/20 23:26 Docusate Sodium (Colace) 100 mg BID PO 03/10/20 21:00 03/11/20 08:46 Enoxaparin Sodium (Lovenox) 40 mg DAILY SC 03/11/20 09:00 03/11/20 08:48 Home Med (Med Rec Complete!) ASDIRECTED XX 03/11/20 01:30 03/11/20 01:34 DC Magnesium Hydroxide (Milk Of Magnesia) 30 ml DAILY PRN PO CONSTIPATION 03/10/20 21:30 Pantoprazole Sodium (Protonix) 40 mg DAILY IV 03/11/20 09:00 03/11/20 08:48 Potassium Chloride 10 meq/ IV Miscellaneous Supplies 100 ml @ 100 mls/hr 0000,0100,0200,0300 IV 03/11/20 00:00 03/11/20 01:23 DC 03/11/20 00:39 Potassium Chloride 20 meq/ IV Miscellaneous Supplies 100 ml @ 100 mls/hr 0330,0430 IV 03/11/20 03:30 03/11/20 07:30 DC 03/11/20 04:49 Sodium Chloride 500 ml @ 15 mls/hr Q24H IV 03/10/20 18:15 03/10/20 20:25 DC 03/10/20 18:27 Sodium Chloride 500 ml @ 40 mls/hr [id number] IV 03/10/20 20:30 03/10/20 23:29 DC 03/10/20 20:44 Sodium Chloride 500 ml @ 40 mls/hr [id number] IV 03/11/20 01:15 03/11/20 04:15 DC 03/11/20 01:55 Allergies Coded Allergies: aspirin (Verified Allergy, Severe, tongue swelling, 03/10/20) Penicillins (Verified Allergy, Intermediate, rash and hives, 03/10/20) Sulfa (Sulfonamide Antibiotics) (Verified Allergy, Intermediate, RASh, hives, lip swelling, 03/10/20) felodipine (Verified Adverse Reaction, Mild, GI upset, 03/10/20) risedronate sodium (Verified Adverse Reaction, Mild, GI Upset, 03/10/20) naproxen (Verified Adverse Reaction, Unknown, GI upset, 03/10/20) Agatha Bedolla MD Mar 11, 2020 18:53
[2020-03-11] MEDS ORDERED: NS 500 ML IV ONE (19:00)
--- NOTE | 2020-03-11 19:35 | ECGEPIP ---
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
[2020-03-11] MEDS: ATORVASTATIN 20 MG TAB PO SCH (20:51)
[2020-03-11 21:24] LABS: BLOOD UREA NITROGEN 15 MG/DL (7-18); CALCIUM LEVEL 8.1 MG/DL (8.8-10.2); CARBON DIOXIDE LEVEL 27 MEQ/L (21-32); CHLORIDE LEVEL 91 MEQ/L (98-107); CREATININE FOR GFR 0.87 MG/DL (0.55-1.30); GLOMERULAR FILTRATION RATE > 60.0 (>39); GLUCOSE, FASTING 143 MG/DL (70-100); POTASSIUM SERUM 3.5 MEQ/L (3.5-5.1); SODIUM LEVEL 124 MEQ/L (136-145)
--- NOTE | 2020-03-11 21:49 | CR ---
CONSULTATION DATE: 03/11/2020 REFERRING PHYSICIAN: Dr. Bedolla INDICATION: Abnormal troponin and EKG in patient admitted with altered mental status and severe hyponatremia. HISTORY OF PRESENT ILLNESS: Mrs. Burgos is previously unknown to me. She is a 69-year-old female who has history of hypertension, dyslipidemia, dementia and anxiety who was admitted yesterday after approximately ten day illness reported by her . The reason why he brought for admission was her confusion. He noted the first abnormality about nine or days prior to admission when her oral intake decreased. About two or three days later, he noticed episodes when she was completely confused and had episodes of just blank staring that would last many minutes at a time but eventually she would come out of it and even though he felt that her condition was slowly deteriorating, he did not seek any immediate medial attention. Her oral intake continued to be very poor even though she continued taking her medications. Eventually though she started having difficulty with walking and consequently brought her for further evaluation. As another hint to him that something was not all right was the fact that she became incontinent of urine which was something that was a problem previously. The initial evaluation in the emergency room revealed severe hyponatremia with sodium 107. She was also hypokalemic with potassium 2.9 but had normal renal function and normal CBC. She appeared dehydrated, was treated essentially with administration of hypertonic saline and eventually her sodium level gradually improved and was up to 120 today. As a part of the blood work obtained during admission, she was found to have elevated troponin that was 1.16 and that has been trended since, eventually went up to 1.23, then down to 0.76 and this morning again back to 1.28. Her BNP was quite high. N-terminal proBNP was 1200 yesterday. The patient initially was completely confused and was unable to provide any history but today according to her , she is close to her baseline and she does have no recollection of any cardiovascular symptoms. I am not quite sure how reliable this is, though, with her memory loss. Based on the history provided by her , she has not had any changes in her medications for at least several months. To the best of his recollection, she was seen by Dr. Hayes who is a primary care physician approximately two or three months ago. She does not have any history of coronary artery disease or congestive heart failure. As an interesting observation, the noted that under normal circumstances, he noticed that she drinks excessive amount of water. He cannot quite quantify the amount but he believes that it is likely that she will drink close to a gallon a day. Now this has changed during the last week or so when her oral intake diminished considerably. PAST MEDICAL HISTORY: 1. Hypertension. 2. Dementia. 3. Dyslipidemia. 4. Anxiety. SURGICAL HISTORY: 1. Hysterectomy. 2. Cholecystectomy. 3. She also has a scar on her back, I suspect indicative of excision of some form of skin lesion but her is unaware of what is etiology. SOCIAL HISTORY: The patient used to smoke as a young woman but has not been smoking for at least 20 years. There is no history of alcohol use or illicit substances. 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 FAMILY HISTORY: Per , no significant past cardiac history in her first degree relatives. ALLERGIES: PENICILLIN, SULFA, ASPIRIN, FELODIPINE, NAPROSYN. OUTPATIENT MEDICATIONS: 1. Hydrochlorothiazide 25 mg daily. 2. Atorvastatin 40 mg at night. 3. Donepezil 10 mg daily. 4. Lisinopril 20 mg twice a day. 5. Paroxetine 10 mg daily. REVIEW OF SYSTEMS: She denies and her denies as well any recent complaints about chest pain, shortness of breath, dizziness, syncope. He did notice some difficulty with ambulation in the last day or two. No justo loss of consciousness, no diarrhea, nausea, vomiting, no peripheral edema. PHYSICAL EXAMINATION: Mrs. Burgos is an elderly woman who currently appears very comfortable. She is eating diner, does not appear to be in any distress and she answers simple questions appropriately if she can recall the answer. Current vital signs reveal blood pressure 90/50. Heart rate has been in the 70s. She has been afebrile, saturation 96% on room air. Her weight was recorded at 69 kilograms. She made about two liters already today. JVP is not high. Lungs are clear. I do not appreciate any crackles, wheezing or rhonchi. Heart exam reveals regular rhythm without obvious gallop, rub or murmur. Abdomen is soft without obvious tenderness or rebound tenderness. I do not appreciate any guarding. Extremities are free of edema. Peripheral pulses are palpable in all four extremities. Neurologically, she is confused but I do not appreciate any focal signs. LABORATORIES: As of this morning, sodium 120, potassium 4.0, BUN 9, creatinine 0.6, glucose 120. Troponin I this morning was 1.26, albumin 3.4. CBC was normal. Urinalysis revealed gravity 1.02, negative for protein, glucose, ketones and she has had SARS and influenza A and B testing and RSV testing. They were all negative. She also had negative hepatitis test. IMAGING: Chest x-ray did not reveal any obvious abnormality. There is no evidence for cardiomegaly, congestive heart failure or infiltrate. She had a head CT that revealed diffuse atrophy but no obvious focal lesions. Liver ultrasound was indicative of prior cholecystectomy but otherwise was negative. ASSESSMENT AND PLAN: For me it is a little challenging for reconcile the patient's symptoms and findings into one cohesive diagnosis. Even though the dominant complaint on presentation of her was confusion and lack of oral intake, I suspect that it is more likely a consequence rather than cause of hyponatremia as dehydration is usually presenting as hypernatremia. She does take hydrochlorothiazide which seems to be the most obvious culprit but she apparently has been on this medication for a long time so it makes it somewhat less likely. It is possible that she has some yet unrecognized process causing inappropriate ADH secretion but I think that the hydrochlorothiazide is most likely going to be our answer. I am quite sure how to reconcile her troponin elevation without any appreciable trend together with EKG abnormalities. She initially had sinus rhythm with nonspecific ST-T abnormalities but EKG this morning revealed more suspicious ST elevations in precordial leads. She certainly does not have any symptoms to suggest myocardial infarction and I have to assume that she has possibly some form of myocarditis or I cannot even completely rule out some consequences of her electrolyte disturbance. At this point, I do not believe that she is a candidate for an invasive further evaluation. As long as she continues to be asymptomatic, I think we can continue observation only while holding her medications. She is allergic to aspirin and I do not believe that the Plavix will be indicated in this setting yet. I will obtain another EKG and troponin tomorrow morning and once her sodium normalizes and we will have answer from her echocardiogram, we will formulate ultimate plan. The differential diagnosis in this point remains quite wide but unfortunately due to her neurologic disability, the potential benefit from invasive procedure is questionable unless it is associated with survival advantage. GILLES
[2020-03-11] MEDS ORDERED: D5W 1000ML IV ONE (22:00)
[2020-03-11] MEDS ORDERED: D5W 500 ML IV ONE (22:15)
[2020-03-12] VITALS (22 sets, daily range): BP systolic 92–130; BP diastolic 51–68
[2020-03-12] MEDS ORDERED: DESMOPRESSIN ACETATE 2 MCG in NS 50 ML IV ONE ×2
[2020-03-12 00:53] LABS: BLOOD UREA NITROGEN 16 MG/DL (7-18); CALCIUM LEVEL 7.7 MG/DL (8.8-10.2); CARBON DIOXIDE LEVEL 28 MEQ/L (21-32); CHLORIDE LEVEL 90 MEQ/L (98-107); CREATININE FOR GFR 0.79 MG/DL (0.55-1.30); GLOMERULAR FILTRATION RATE > 60.0 (>39); GLUCOSE, FASTING 113 MG/DL (70-100); POTASSIUM SERUM 4.4 MEQ/L (3.5-5.1); SODIUM LEVEL 121 MEQ/L (136-145)
[2020-03-12 04:41] LABS: BASO # 0.1 10^3/uL (0.0-0.2); BASO % 0.6 % (0.0-1.0); EOS # 0.1 10^3/uL (0.0-0.5); EOS % 0.9 % (0.0-3.0); HEMATOCRIT 36.7 % (36.0-47.0); HEMOGLOBIN 13.2 g/dl (12.0-15.5); LYMPH # 1.5 10^3/uL (1.5-5.0); LYMPH % 16.9 % (24.0-44.0); MEAN CORPUSCULAR HEMOGLOBIN 31.9 pg (27.0-33.0); MEAN CORPUSCULAR VOLUME 88.6 fl (80.0-96.0); MONO % 10.7 % (0.0-5.0); NEUTROPHILS # 6.3 10^3/uL (1.5-8.5); NEUTROPHILS % 70.3 % (36.0-66.0); PLATELET COUNT, AUTOMATED 216 10^3/uL (150-450); RED BLOOD COUNT 4.14 10^6/uL (4.00-5.40); WHITE BLOOD COUNT 8.9 10^3/uL (4.0-10.0)
[2020-03-12 04:51] LABS: SODIUM,RANDOM URINE 48 MEQ/L
[2020-03-12 04:53] LABS: OSMOLALITY URINE 787 MOSM/KG (500-800)
[2020-03-12 04:57] LABS: BLOOD UREA NITROGEN 16 MG/DL (7-18); CARBON DIOXIDE LEVEL 27 MEQ/L (21-32); CHLORIDE LEVEL 88 MEQ/L (98-107); CREATININE FOR GFR 0.61 MG/DL (0.55-1.30); GLOMERULAR FILTRATION RATE > 60.0 (>39); GLUCOSE, FASTING 92 MG/DL (70-100); MAGNESIUM LEVEL 1.6 MG/DL (1.8-2.4); POTASSIUM SERUM 4.3 MEQ/L (3.5-5.1); SODIUM LEVEL 120 MEQ/L (136-145)
[2020-03-12] MEDS ORDERED: MAGNESIUM OXIDE 400 MG TAB (MAG-OX) PO ONE (07:45)
--- NOTE | 2020-03-12 08:30 | CR ---
CONSULTATION DATE OF CONSULTATION: 03/11/2020 REQUESTING PHYSICIAN: Mal Null MD, the admitting physician, and the emergency room (ER) physician. CONSULTING PHYSICIAN: Jonn Trivedi MD REASON FOR CONSULTATION: Management of severe symptomatic hyponatremia. CHIEF COMPLAINT: Patient was brought in by her to the emergency room because of confusion, altered mental status, and encephalopathy. HISTORY OF PRESENT ILLNESS: Rolanda Burgos is a 69-year-old female with past medical history of dementia, hypertension, anxiety and depression. She was brought to the emergency room yesterday by her because of altered mental status. As reported by , patient was getting more and more confused and lethargic with inability to walk, she was not even taking her feeds now, she was unable to take liquids or solids, and this condition was being attributed to her dementia. She was taken to the primary care's office where labs were done, and labs done at primary care provider's (PCPs) office showed a sodium of 106 so patient was sent to the emergency room. Of note, patient was taking thiazide diuretic and angiotensin-converting enzyme (ASHER) inhibitor at home for hypertension and patient reports that before this her labs have not been done since November last year. Because of the urgent nature of these labs case was discussed with myself by the emergency room (ER) physician and the admitting physician, Dr. Null. The decision was made to hold patient's ASHER inhibitors and thiazide diuretic. Stat labs were all reviewed by myself. TSH, urine and serum osmolality, urine sodium, and cortisol levels were reviewed. 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 Patient was emergently started on hypertonic saline at 40 mL/hour initially for 3 hours, labs were ordered every 2 hours. I was called by the nursing staff for each subsequent labs overnight and I saw and evaluated the patient today morning at the bedside. Her was also present at the bedside. Patient's reports that her mental status is significantly better today morning as compared with last night. By the time I saw the patient in the morning her sodium had improved from initial of 107 on arrival in the emergency room to 118 in the morning. Patient was able to swallow some pills as reported by the nursing staff. PAST MEDICAL HISTORY: Past medical history of dementia, hypertension, anxiety and depression. PAST SURGICAL HISTORY: No significant past surgical history. ALLERGIES: She is allergic to PENICILLIN, SULFA, ASPIRIN, FELODIPINE, NAPROXEN, RISEDRONATE SODIUM. FAMILY HISTORY: No significant family history of end-stage renal disease requiring hemodialysis. SOCIAL HISTORY: Patient lives at home with her . There is no illicit drug abuse or alcohol abuse. REVIEW OF SYSTEMS: I was unable to review any significant review of systems, patient was still very slow to respond, she was able to answer a few questions, but as reported by patient was getting more and more weak and lethargic with decreased oral intake, inability to walk, and more confused in the last few weeks. PHYSICAL EXAMINATION: General: Patient is awake, alert, oriented times two today, laying in bed. Vital signs: Temperature is 97.2 degrees Fahrenheit, blood pressure 94/57, pulse is 70, respiratory rate of 14, saturating 97% on room air. Intake and output: Urine output recorded is two liters since overnight, in the morning patient had started to make around 300 mL of urine an hour. Head and neck exam: Extraocular muscles intact. Pupils equally round and reactive to light. Mucous membranes are moist. Neck is supple. There is no jugular venous distension (JVD). Cardiovascular: S1, S2, regular rate. No edema of the bilateral lower extremities. Respiratory: Chest is clear to auscultation bilaterally. Bilateral equal air entry. No rales or rhonchi. Abdomen: Soft, positive bowel sounds, nontender, no organomegaly. Musculoskeletal: No clubbing or cyanosis. Pulses are 2+. Central nervous system (MACHINE [employer]): No focal deficits. Power is 5/5 in all extremities. LABORATORY REVIEW: CBC showed WBC 8.5, hemoglobin 15, platelets are 241. Urine random osmolality was 611 on arrival with a creatinine of 187 and a sodium of 26. Repeat urine osmolality done in the morning showed osmolality of 82 and a sodium of 11. BMP on arrival showed sodium 107, potassium 2.9, chloride 67, bicarbonate 32, BUN 11, creatinine of 0.63, glucose of 130, calcium 8.9. BNP 1219. Repeat BMP in the morning when I saw her showed sodium 118, potassium 4.2, chloride 84, bicarbonate 26, BUN 8, creatinine 0.6, total bilirubin 1.1, troponin 1.2. Microbiology: Blood cultures are pending. Urine cultures are negative. IMAGING: A CT scan of the head was done which showed no acute intracranial pathology. Liver ultrasound was done which showed status post cholecystectomy, no intrahepatic biliary dilatation was noted. And a chest x-ray was done which showed no focal consolidation. CURRENT INPATIENT MEDICATIONS: Patient was given hypertonic saline at 40 mL/hour initially for 3 hours and later on when her sodium dropped again for 40 mL/hour for 3 hours. I gave her a dose of desmopressin 2 mcg IV times one dose in the morning. Patient is getting potassium runs. She was also given a normal saline bolus 500 mL yesterday. She is on Aricept 10 mg by mouth daily, Colace 100 mg by mouth twice a day, magnesium oxide 800 mg by mouth twice a day, and Protonix 40 mg IV daily. ASSESSMENT AND PLAN: 1. Severe symptomatic hyponatremia. Patient has euvolemic hypotonic hyponatremia with high urine osmolality and urine sodium more than 20 which points towards syndrome of inappropriate antidiuretic hormone secretion (SIADH). Patient was given hypertonic saline overnight, however at this point I am worried about overcorrection since she is making a lot of urine now. I have given her a dose of DDAVP. If needed, if patient overcorrects, she might need a dose of IV dextrose 5% in water (D5W) as well. Continue to monitor basic metabolic panel (BMP) every 4 hours for now. Avoid further use of angiotensin-converting enzyme (ASHER) inhibitors or thiazide diuretics at this time. 2. Hypokalemia. It is most likely related to use of thiazide diuretics at home. Along with that she has severe hyponatremia as well. Continue to give oral and IV potassium supplementation. Potassium level has significantly improved from 2.9 to 3.9 today morning. 3. History of hypertension. Avoid use of thiazide diuretics in this patient in future. Sometimes angiotensin-converting enzyme (ASHER) inhibitors are also associated with syndrome of inappropriate antidiuretic hormone secretion (SIADH). I would also avoid giving her ASHER inhibitors. However, at this point patient is hypotensive and she is making a lot of urine. DDAVP would help reduce her urine output and help her blood pressure as well. Avoid aggressive use of normal saline in this patient at this point because it might overcorrect her sodium. 4. Elevated troponins. Patient had a troponin level of 1.28 on arrival. Cardiology has already been called by medical team. Patient was given a dose of Plavix and she is on Lipitor 40 mg nightly. 5. History of dementia. I am not sure whether patient really has dementia or whether she had baseline hyponatremia that is contributing to dementia. At this point, it is okay to continue donepezil 10 mg by mouth daily. Thank you for involving me in the care of this patient. I shall be happy to follow the patient along with you tomorrow morning. Total critical care time spent in the management of this patient today morning in the intensive care unit (ICU) and last night in the emergency room was 1 hour and 40 minutes excluding all the procedures. IRAISD
[2020-03-12] MEDS: ENOXAPARIN 40MG/0.4ML SYRINGE (J1650 PER 10MG) SC SCH (09:06)
[2020-03-12] MEDS: CLOPIDOGREL 75 MG TAB PO SCH (09:06)
[2020-03-12] MEDS: DOCUSATE SODIUM 100MG CAPSULE PO SCH ×2 (09:07→20:29)
[2020-03-12] MEDS: DONEPEZIL 5 MG TAB PO SCH (09:07)
[2020-03-12] MEDS: PANTOPRAZOLE 40MG TAB (PROTONIX) PO SCH (09:07)
[2020-03-12 09:52] LABS: BLOOD UREA NITROGEN 14 MG/DL (7-18); CARBON DIOXIDE LEVEL 24 MEQ/L (21-32); CHLORIDE LEVEL 88 MEQ/L (98-107); CREATININE FOR GFR 0.74 MG/DL (0.55-1.30); GLOMERULAR FILTRATION RATE > 60.0 (>39); GLUCOSE, FASTING 122 MG/DL (70-100); SODIUM LEVEL 120 MEQ/L (136-145)
[2020-03-12 12:41] LABS: BLOOD UREA NITROGEN 15 MG/DL (7-18); CARBON DIOXIDE LEVEL 28 MEQ/L (21-32); CHLORIDE LEVEL 88 MEQ/L (98-107); CREATININE FOR GFR 0.62 MG/DL (0.55-1.30); GLOMERULAR FILTRATION RATE > 60.0 (>39); GLUCOSE, FASTING 118 MG/DL (70-100); SODIUM LEVEL 120 MEQ/L (136-145)
--- NOTE | 2020-03-12 14:31 | IPNPDOC ---
Date Seen The patient was seen on 03/12/20. Progress Note SUBJECTIVE: BP stable overnight, Na 120. Discussed case with Dr. Trivedi who continues with current treatment. Cardiology suspicious of septal wall infarction due to findings on echocardiogram, discussed possibility of transferring to [place] 03/13/20. He is to further discuss case with earrings fabricator in [place]. Patient, although confused, is more awake and eating well. Denies chest pain, SOB. OBJECTIVE: PHYSICAL EXAMINATION: VITAL SIGNS: please see below General: AAOx1, following commands. In NAD. laying in bed HEENT: 3mm pupils, symmetrical, sluggish to light, sclerae clear Neck: supple, normal ROM, no JVD Respiratory: lungs CTAB, no wheeze, no rales, no crackles CVS: RRR, normal S1, S2, no murmurs Abdo: soft, no masses, no hepatosplenomegaly, BS+, no rebound tenderness Extremities: no edema, pulses 2+ MSK: no joint deformities, normal ROM Neuro: no focal neuro deficits, moving all 4 extremities, CN2-12 intact. Strength 5/5 in all 4 extremities. No nystagmus. Psych: calm, cooperative, pleasantly confused LABORATORY DATA: See below. IMAGING: Echocardiogram: F/u official transcribed report, preliminary report given to me by cardiology (Dr. Donaldson) CT head: 1. No acute intracranial abnormality. 2. Mild cerebral atrophy and chronic microangiopathic changes. CXR (03/10/20): No focal consolidation or effusion. MICROBIOLOGY: Please see below. ASSESSMENT: 69-year-old female with a history of anxiety, hypertension, anxiety and dementia presented to the ER with altered mental status, found to have a sodium of 107 secondary to reduced by mouth intake. He has subsequent dehydration. Patient also noted to have elevated troponin of 1.16, likely due to demand ischemia per Dr. Donaldson not a candidate for cardiac catheterization given severely acute illness. Will be admitted to ICU for treatment of severe hyponatremia with hypertonic saline with nephrology on consultation as well as cardiac monitoring and serial troponins. PLAN: #Septal wall CT with questionable anterior wall infarction -Patient HD stable, BP improved. -Troponins trending down this AM -Echocardiogram: septum akinetic, wall motion abnormalities per cardiology. -No prior hx of CAD -D/w Dr. Donaldson, who will discuss with earrings fabricator in [place]. Possible transfer 03/13/20 -Patient has angioedema to ASA. C/w plavix 300, statin -Cardiology following closely, tele #Severe hyponatremia with AMS 2/2 SIADH -Sodium 120 this afternoon, needing to give D5W and desmopressin due to incr U/O (much improved) and overcorrection of sodium -Holding ACEi, HCTZ, gabapentin -CT head above -Monitor BMP Q12H -Nephrology following, fluid restriction #Hypotension likely 2/2 to fluid loss 2/2 [address] SIADH, CT- improving -Eating and drinking well currently -Over diuresis has been improved with desmopressin -Keep off all antihypertensive meds above -Monitor on tele -C/w treatment above #Hypomagnesemia -Given 800 mg PO magnesium -F/u AM lab #Elevated bilirubin - Bili slightly improved in setting of dehydration - Liver US neg -F/u CMP in AM #Dementia -AMS in setting of severe hyponatremia -per , stable prior to 1 week ago -Continue to monitor closely -redirect whenever possible -C/w donepezil #GI ppx: - PPI #DVT ppx - lovenox. SCDs, TEDs. Resolved issues: Hypokalemia Lines: R femoral CVC placed on 03/10/20 by ER staff. DISPOSITION: Remains in ICU, improving slowly. Will need PT/OT when able to participate. Plan is possibly transfer to [place] for cardiac catheterization or further intervention based on cardiology's recommendations. Dr. Donaldson consulted and following closely. TOTAL CRITICAL CARE TIME SPENT TREATING PATIENT: 50 MINS VS, I&O, 24H, Fishbone Vital Signs/I&O Vital Signs Date Time Temp Pulse Resp B/P (MAP) Pulse Ox O2 Delivery O2 Flow Rate FiO2 03/12/20 12:00 98.8 71 18 124/66 (85) 98 Room Air I&O- Last 24 Hours up to 6 AM 03/12/20 05:59 Intake Total 2360 ml Output Total 1780 ml Balance 580 ml Laboratory Data 24H LABS Laboratory Tests 2 03/11/20 15:41: Anion Gap 4L, Glomerular Filtration Rate > 60.0, Calcium Level 8.8 03/11/20 20:45: Anion Gap 6L, Glomerular Filtration Rate > 60.0, Calcium Level 8.1L 03/12/20 00:20: Anion Gap 3L, Glomerular Filtration Rate > 60.0, Calcium Level 7.7L 03/12/20 04:11: Anion Gap 5L, Glomerular Filtration Rate > 60.0, Calcium Level 8.0L, Magnesium Level 1.6L, Troponin I 0.39#H 03/12/20 04:12: Immature Granulocyte % (Auto) 0.6, Neutrophils (%) (Auto) 70.3H, Lymphocytes (%) (Auto) 16.9L, Monocytes (%) (Auto) 10.7H, Eosinophils (%) (Auto) 0.9, Basophils (%) (Auto) 0.6, Neutrophils # (Auto) 6.3, Lymphocytes # (Auto) 1.5, Monocytes # (Auto) 1.0H, Eosinophils # (Auto) 0.1, Basophils # (Auto) 0.1, Nucleated Red Blood Cells % (auto) 0.0, Urine Random Osmolality 787, Urine Random Sodium 48 03/12/20 08:47: Anion Gap 8, Glomerular Filtration Rate > 60.0, Calcium Level 8.0L 03/12/20 12:05: Anion Gap 4L, Glomerular Filtration Rate > 60.0, Calcium Level 8.0L 03/12/20 14:05: CBC/BMP Laboratory Tests 03/11/20 15:41 03/11/20 20:45 03/12/20 00:20 03/12/20 04:11 03/12/20 04:12 03/12/20 08:47 03/12/20 12:05 Microbiology Microbiology 03/10/20 Blood Culture - Preliminary, Resulted No growth after 24 hours . All specim... 03/10/20 Blood Culture - Preliminary, Resulted No growth after 24 hours . All specim... 03/10/20 Urine Culture - Final, Complete Current Medications Current Medications Medications (Trade) Dose Ordered Sig/Katia Route PRN Reason Start Time Stop Time Status Last Admin Dose Admin Acetaminophen (Tylenol Tab) 650 mg Q4H PRN PO PAIN OR FEVER 03/10/20 21:30 Al Hydrox/Mg Hydrox/Simethicone (Mylanta) 30 ml DAILY PRN PO DYSPEPSIA 03/10/20 21:30 Atorvastatin Calcium (Lipitor) 40 mg QHS PO 03/11/20 21:00 03/11/20 20:51 Clopidogrel Bisulfate (PLAVix) 75 mg DAILY PO 03/12/20 09:00 03/12/20 09:06 Clopidogrel Bisulfate (PLAVix) 300 mg STAT STAT PO 03/10/20 23:05 03/10/20 23:08 DC 03/10/20 23:26 Docusate Sodium (Colace) 100 mg BID PO 03/10/20 21:00 03/12/20 09:07 Donepezil HCl (AriCEPT) 10 mg DAILY PO 03/12/20 09:00 03/12/20 09:07 Enoxaparin Sodium (Lovenox) 40 mg DAILY SC 03/11/20 09:00 03/12/20 09:06 Home Med (Med Rec Complete!) ASDIRECTED XX 03/11/20 01:30 03/11/20 01:34 DC Magnesium Hydroxide (Milk Of Magnesia) 30 ml DAILY PRN PO CONSTIPATION 03/10/20 21:30 Pantoprazole Sodium (Protonix) 40 mg DAILY IV 03/11/20 09:00 03/12/20 08:58 DC 03/11/20 08:48 Pantoprazole Sodium (Protonix) 40 mg DAILY PO 03/12/20 09:00 03/12/20 09:07 Potassium Chloride 10 meq/ IV Miscellaneous Supplies 100 ml @ 100 mls/hr 0000,0100,0200,0300 IV 03/11/20 00:00 03/11/20 01:23 DC 03/11/20 00:39 Potassium Chloride 20 meq/ IV Miscellaneous Supplies 100 ml @ 100 mls/hr 0330,0430 IV 03/11/20 03:30 03/11/20 07:30 DC 03/11/20 04:49 Sodium Chloride 500 ml @ 15 mls/hr Q24H IV 03/10/20 18:15 03/10/20 20:25 DC 03/10/20 18:27 Sodium Chloride 500 ml @ 40 mls/hr [id number] IV 03/10/20 20:30 03/10/20 23:29 DC 03/10/20 20:44 Sodium Chloride 500 ml @ 40 mls/hr [id number] IV 03/11/20 01:15 03/11/20 04:15 DC 03/11/20 01:55 Allergies Coded Allergies: aspirin (Verified Allergy, Severe, tongue swelling, 03/10/20) Penicillins (Verified Allergy, Intermediate, rash and hives, 03/10/20) Sulfa (Sulfonamide Antibiotics) (Verified Allergy, Intermediate, RASh, hives, lip swelling, 03/10/20) felodipine (Verified Adverse Reaction, Mild, GI upset, 03/10/20) risedronate sodium (Verified Adverse Reaction, Mild, GI Upset, 03/10/20) naproxen (Verified Adverse Reaction, Unknown, GI upset, 03/10/20) Agatha Bedolla MD Mar 12, 2020 14:31
[2020-03-12 14:46] LABS: SODIUM,RANDOM URINE 39 MEQ/L
[2020-03-12 15:15] LABS: OSMOLALITY URINE 813 MOSM/KG (500-800)
[2020-03-12 16:40] LABS: BLOOD UREA NITROGEN 14 MG/DL (7-18); CARBON DIOXIDE LEVEL 27 MEQ/L (21-32); CHLORIDE LEVEL 89 MEQ/L (98-107); CREATININE FOR GFR 0.65 MG/DL (0.55-1.30); GLOMERULAR FILTRATION RATE > 60.0 (>39); GLUCOSE, FASTING 119 MG/DL (70-100); SODIUM LEVEL 121 MEQ/L (136-145)
--- NOTE | 2020-03-12 17:03 | IPNPDOC ---
Date Seen The patient was seen on 03/12/20. Progress Note SUBJECTIVE: BP soft, given 500 cc bolus later in day. Nephrology started desmopressin due to incr U/O 100-150 cc/hr earlier. Currently 30 mL/hr, decreased since initiation. Pleasantly confused at times, follows commands. at bedside. Cardiology consulted to come see today, discussed case with Dr. Donaldson on phone. OBJECTIVE: PHYSICAL EXAMINATION: VITAL SIGNS: please see below General: AAOx1, following commands. In NAD sitting up in bed HEENT: 3mm pupils, symmetrical, sluggish to light, sclerae clear Neck: supple, normal ROM, no JVD Respiratory: lungs CTAB, no wheeze, no rales, no crackles CVS: RRR, normal S1, S2, no murmurs Abdo: soft, no masses, no hepatosplenomegaly, BS+, no rebound tenderness Extremities: no edema, pulses 2+ MSK: no joint deformities, normal ROM Neuro: no focal neuro deficits, moving all 4 extremities, CN2-12 intact. Strength 5/5 in all 4 extremities. No nystagmus. Psych: calm, cooperative, pleasantly confused LABORATORY DATA: See below. IMAGING: CT head: 1. No acute intracranial abnormality. 2. Mild cerebral atrophy and chronic microangiopathic changes. CXR (03/10/20): No focal consolidation or effusion. MICROBIOLOGY: Please see below. ASSESSMENT: 69-year-old female with a history of anxiety, hypertension, anxiety and dementia presented to the ER with altered mental status, found to have a sodium of 107 secondary to reduced by mouth intake. He has subsequent dehydration. Patient also noted to have elevated troponin of 1.16, likely due to demand ischemia per Dr. Donaldson not a candidate for cardiac catheterization given severely acute illness. Will be admitted to ICU for treatment of severe hyponatremia with hypertonic saline with nephrology on consultation as well as cardiac monitoring and serial troponins. PLAN: #Severe hyponatremia with AMS 2/2 reduced PO intake vs. SIADH -Sodium incr to 118 this AM--> 120 this afternoon, stopped 3% saline overnight and fluid restricting currently -Started desmopressin today due to incr U/O 100-150 cc/hr -Holding ACEi, HCTZ, gabapentin -CT head above -Monitor BMP Q12H -Nephrology following #Hypotension likely 2/2 to fluid loss, ? SIADH vs. cardiac issue -S/p 500 cc bolus for BP 82-90/83-86 mmHg during the day today -U/O high as mentioned above but is improving -Hopefully will improve -Keep off all antihypertensive meds above -Monitor on tele -Treatment of #Elevated troponin, ? acute septal [place] on ECG - Trop incr further to 1.28 - ECG from the AM in chart - patient denies chest pain, incr SOB - no prior hx of CAD - D/w Dr. Donaldson, patient not a candidate for a cath at this time. To see patient today - patient has angioedema to ASA, gave plavix 300 mg once, started on home statin -Cardiology consulted. #Hypokalemia- resolved -S/p KCL 40 PO, krun x 4 on admission -WNL this AM -repeat BMP in AM #Elevated bilirubin - Bili slightly improved in setting of dehydration - Liver US neg -F/u CMP in AM #Dementia -AMS in setting of severe hyponatremia -per , stable prior to 1 week ago -Continue to monitor closely -redirect whenever possible -Restart donepezil #GI ppx: - pantoprazole 40 mg IV daily #DVT ppx - lovenox. SCDs, TEDs. Lines: R femoral CVC placed on 03/10/20 by ER staff. DISPOSITION: Remains in ICU, improving slowly. Will need PT/OT when able to participate. Plan is hopefully discharge home with but will know more after PT eval. TOTAL CRITICAL CARE TIME SPENT TREATING PATIENT: 40 MINS VS, I&O, 24H, [place] Vital Signs/I&O Vital Signs Date Time Temp Pulse Resp B/P (MAP) Pulse Ox O2 Delivery O2 Flow Rate FiO2 03/12/20 16:00 97.9 63 18 115/59 (77) 98 Room Air I&O- Last 24 Hours up to 6 AM 03/12/20 06:00 Intake Total 2060 ml Output Total 1155 ml Balance 905 ml Laboratory Data 24H LABS Laboratory Tests 2 03/11/20 20:45: Anion Gap 6L, Glomerular Filtration Rate > 60.0, Calcium Level 8.1L 03/12/20 00:20: Anion Gap 3L, Glomerular Filtration Rate > 60.0, Calcium Level 7.7L 03/12/20 04:11: Anion Gap 5L, Glomerular Filtration Rate > 60.0, Calcium Level 8.0L, Magnesium Level 1.6L, Troponin I 0.39#H 03/12/20 04:12: Immature Granulocyte % (Auto) 0.6, Neutrophils (%) (Auto) 70.3H, Lymphocytes (%) (Auto) 16.9L, Monocytes (%) (Auto) 10.7H, Eosinophils (%) (Auto) 0.9, Basophils (%) (Auto) 0.6, Neutrophils # (Auto) 6.3, Lymphocytes # (Auto) 1.5, Monocytes # (Auto) 1.0H, Eosinophils # (Auto) 0.1, Basophils # (Auto) 0.1, Nucleated Red Blood Cells % (auto) 0.0, Urine Random Osmolality 787, Urine Random Sodium 48 03/12/20 08:47: Anion Gap 8, Glomerular Filtration Rate > 60.0, Calcium Level 8.0L 03/12/20 12:05: Anion Gap 4L, Glomerular Filtration Rate > 60.0, Calcium Level 8.0L 03/12/20 14:05: Urine Random Osmolality 813H, Urine Random Sodium 39 03/12/20 15:56: Anion Gap 5L, Glomerular Filtration Rate > 60.0, Calcium Level 8.0L CBC/BMP Laboratory Tests 03/11/20 20:45 03/12/20 00:20 03/12/20 04:11 03/12/20 04:12 03/12/20 08:47 03/12/20 12:05 03/12/20 15:56 Microbiology Microbiology 03/10/20 Blood Culture - Preliminary, Resulted No growth after 24 hours . All specim... 03/10/20 Blood Culture - Preliminary, Resulted No growth after 24 hours . All specim... 03/10/20 Urine Culture - Final, Complete Agatha Bedolla MD Mar 12, 2020 17:03
[2020-03-12] MEDS: ATORVASTATIN 20 MG TAB PO SCH (20:29)
[2020-03-12 21:37] LABS: BLOOD UREA NITROGEN 15 MG/DL (7-18); CALCIUM LEVEL 7.9 MG/DL (8.8-10.2); CARBON DIOXIDE LEVEL 26 MEQ/L (21-32); CHLORIDE LEVEL 90 MEQ/L (98-107); CREATININE FOR GFR 0.65 MG/DL (0.55-1.30); GLOMERULAR FILTRATION RATE > 60.0 (>39); GLUCOSE, FASTING 116 MG/DL (70-100); POTASSIUM SERUM 3.9 MEQ/L (3.5-5.1); SODIUM LEVEL 123 MEQ/L (136-145)
[2020-03-13] VITALS (17 sets, daily range): BP systolic 95–143; BP diastolic 53–75
[2020-03-13 00:49] LABS: BLOOD UREA NITROGEN 14 MG/DL (7-18); CALCIUM LEVEL 8.1 MG/DL (8.8-10.2); CARBON DIOXIDE LEVEL 28 MEQ/L (21-32); CHLORIDE LEVEL 88 MEQ/L (98-107); CREATININE FOR GFR 0.69 MG/DL (0.55-1.30); GLOMERULAR FILTRATION RATE > 60.0 (>39); GLUCOSE, FASTING 114 MG/DL (70-100); POTASSIUM SERUM 4.1 MEQ/L (3.5-5.1); SODIUM LEVEL 122 MEQ/L (136-145)
[2020-03-13 04:29] LABS: BASO # 0.1 10^3/uL (0.0-0.2); BASO % 0.6 % (0.0-1.0); EOS # 0.2 10^3/uL (0.0-0.5); EOS % 2.2 % (0.0-3.0); HEMATOCRIT 35.7 % (36.0-47.0); HEMOGLOBIN 12.6 g/dl (12.0-15.5); LYMPH # 1.5 10^3/uL (1.5-5.0); LYMPH % 17.8 % (24.0-44.0); MEAN CORPUSCULAR HEMOGLOBIN 31.5 pg (27.0-33.0); MEAN CORPUSCULAR HGB CONC 35.3 g/dl (32.0-36.5); MEAN CORPUSCULAR VOLUME 89.3 fl (80.0-96.0); MONO # 0.8 10^3/uL (0.0-0.8); MONO % 9.2 % (0.0-5.0); NEUTROPHILS # 5.8 10^3/uL (1.5-8.5); NEUTROPHILS % 69.7 % (36.0-66.0); PLATELET COUNT, AUTOMATED 201 10^3/uL (150-450); WHITE BLOOD COUNT 8.3 10^3/uL (4.0-10.0)
[2020-03-13 04:57] LABS: BLOOD UREA NITROGEN 12 MG/DL (7-18); CALCIUM LEVEL 7.9 MG/DL (8.8-10.2); CARBON DIOXIDE LEVEL 27 MEQ/L (21-32); CHLORIDE LEVEL 89 MEQ/L (98-107); CREATININE FOR GFR 0.68 MG/DL (0.55-1.30); GLOMERULAR FILTRATION RATE > 60.0 (>39); GLUCOSE, FASTING 94 MG/DL (70-100); MAGNESIUM LEVEL 1.6 MG/DL (1.8-2.4); POTASSIUM SERUM 4.3 MEQ/L (3.5-5.1); SODIUM LEVEL 124 MEQ/L (136-145)
[2020-03-13] MEDS ORDERED: MAG SULF 1GM/100ML (MAG RUN) 1 GM in IV 1 EA IV SCH (06:00)
[2020-03-13] MEDS ORDERED: MAGNESIUM OXIDE 400 MG TAB (MAG-OX) PO ONE (06:15)
[2020-03-13] MEDS ORDERED: MAG SULF 1GM/100ML (MAG RUN) 1 GM in IV 1 EA IV ONE (08:00)
[2020-03-13 08:26] LABS: BLOOD UREA NITROGEN 10 MG/DL (7-18); CALCIUM LEVEL 8.1 MG/DL (8.8-10.2); CARBON DIOXIDE LEVEL 27 MEQ/L (21-32); CHLORIDE LEVEL 90 MEQ/L (98-107); CREATININE FOR GFR 0.66 MG/DL (0.55-1.30); GLOMERULAR FILTRATION RATE > 60.0 (>39); GLUCOSE, FASTING 112 MG/DL (70-100); POTASSIUM SERUM 4.1 MEQ/L (3.5-5.1); SODIUM LEVEL 124 MEQ/L (136-145)
[2020-03-13] MEDS: ENOXAPARIN 40MG/0.4ML SYRINGE (J1650 PER 10MG) SC SCH (09:03)
[2020-03-13] MEDS: PANTOPRAZOLE 40MG TAB (PROTONIX) PO SCH (09:04)
[2020-03-13] MEDS: DONEPEZIL 5 MG TAB PO SCH (09:04)
[2020-03-13] MEDS: CLOPIDOGREL 75 MG TAB PO SCH (09:04)
[2020-03-13] MEDS: DOCUSATE SODIUM 100MG CAPSULE PO SCH ×2 (09:04→21:00)
[2020-03-13 09:18] LABS: TROPONIN I 0.13 NG/ML (< 0.10)
--- NOTE | 2020-03-13 10:40 | ECHO ---
DATE OF PROCEDURE: 03/11/2020 Age: 69 Gender: Female Height: 160 cm Weight: 69 kg REFERRING PHYSICIAN: Dr. Agatha Bedolla INDICATION: Abnormal EKG and elevated troponin. MEASUREMENTS: LA 3.3 cm IVC 1.0 cm LV 4.0 cm LVPW 1.0 cm Aorta 3.0 cm IVC 1.4 cm Mitral E wave 57 Mitral A 72 E prime septal 4.1 E prime lateral 6.0 FINDINGS: This study is of acceptable technical quality. Underlying sinus rhythm. Left ventricle is normal size. There is very prominent septal wall motion abnormality, mid and distal septum appear completely akinetic. Surprisingly apex, anterior wall, lateral wall, and inferior wall appear to have normal contractility. Overall, I estimate only mildly reduced systolic function with EF estimated around 45% to 50%. Right ventricle is normal size. Both atria appear normal. Aortic valve was poorly visualized, but based on limited views appears sclerotic. Mitral and tricuspid valves appear normal. Pulmonic valve was not well seen. No pericardial effusion is noted. Inferior vena cava is normal size. Aortic root is normal. Aortic arch and abdominal aorta were not well seen. Doppler interrogation reveals no significant aortic, mitral, or tricuspid stenosis or insufficiency. Mitral inflow pattern on tissue Doppler imaging of the mitral annulus revealed grade 1 diastolic dysfunction. CONCLUSIONS: 1. Study is of acceptable technical quality, underlying sinus rhythm. 2. Normal LV size with mid and distal septal akinesis, but overall only mildly reduced systolic function with estimated LVEF of 45% to 50%. Grade 1 diastolic dysfunction. 3. No significant valvular disease. 4. Normal central venous pressure. 5. Unable to estimate pulmonary artery pressure, but no signs to suggest pulmonary hypertension. COMMENTS: I certainly cannot rule out ischemic etiology of septal wall motion abnormality, but in this setting, it is somewhat unusual that the apex and anterior wall appear to be completely spared. MTDD
[2020-03-13] MEDS ORDERED: MIRALAX *UNIT DOSE* 17GM PACKET PO PRN (11:00)
[2020-03-13 11:05] LABS: OSMOLALITY URINE 82 MOSM/KG (500-800)
[2020-03-13 11:20] LABS: SODIUM,RANDOM URINE 13 MEQ/L
[2020-03-13 14:20] LABS: BLOOD UREA NITROGEN 11 MG/DL (7-18); CALCIUM LEVEL 8.4 MG/DL (8.8-10.2); CARBON DIOXIDE LEVEL 28 MEQ/L (21-32); CHLORIDE LEVEL 92 MEQ/L (98-107); CREATININE FOR GFR 0.69 MG/DL (0.55-1.30); GLOMERULAR FILTRATION RATE > 60.0 (>39); GLUCOSE, FASTING 142 MG/DL (70-100); SODIUM LEVEL 126 MEQ/L (136-145)
--- NOTE | 2020-03-13 14:42 | IPN ---
NEPHROLOGY PROGRESS NOTE DATE: 03/12/2020 SUBJECTIVE: The patient was seen and examined at the bedside today morning in the ICU. Her was also present at the bedside. The patient was deep asleep, but finally when she woke up she was able to answer my questions. She followed commands and moved all extremities. She needed an extra dose of DDAVP last night along with a bolus of d5w 500 mL because she was rapidly correcting her hyponatremia. After that her sodium level has stayed stable overnight and in the morning it was 120. OBJECTIVE: VITAL SIGNS: Temperature is 98.8 degrees Fahrenheit, blood pressure 103/59, pulse is 79, respiratory rate of 18, saturating 96% on room air. INTAKE AND OUTPUT: Urine output recorded as 2.2 liters yesterday, 610 mL so far today since overnight. Weight in the bed scale is 71.2 kg. PHYSICAL EXAMINATION: GENERAL APPEARANCE: The patient is awake, alert, oriented x3. HEAD AND NECK: Extraocular muscles intact. Pupils are equally round and reactive to light. Mucous membranes are moist. Neck is supple. There is no jugular venous distention. CARDIOVASCULAR: S1, S2, regular rate. EXTREMITIES: No edema of the bilateral lower extremities. RESPIRATORY: Chest is clear to auscultation bilaterally. Bilaterally currently no rales or rhonchi. ABDOMEN: Soft, positive bowel sounds, nontender, no organomegaly. MUSCULOSKELETAL: No clubbing, no cyanosis. Pulses are 2+. QUOTER: No focal deficits. Power is 5/5 in all extremities. LAB REVIEW: CBC showed a WBC of 8.9, hemoglobin 13.2, platelet count 216. Urine random osmolality done in the morning was 787 with a sodium of 48. BMP showed sodium of 120, potassium is 4, chloride 88, bicarbonate 28, BUN 15, creatinine is 0.6. Calcium is 8. CURRENT INPATIENT MEDICATIONS: The patient's medications were all reviewed by myself. She was given one dose of DDAVP IV last night. No other significant change in the medications today as compared with yesterday. ASSESSMENT AND PLAN: 1. Acute severe symptomatic hyponatremia - The patient was over correcting her hyponatremia last night. As mentioned above, DDAVP was given. Sodium is stable at 120 today. The target for her correction over the next 24 hours is up to a sodium of 128. If she corrects over that, then she will be given another dose of DDAVP and d5w. Continue to monitor BMP q. 4 hours for now. 2. Hypokalemia it has resolved now. Potassium level is in the acceptable range. Continue to replete potassium to maintain potassium above 4. 3. History of hypertension avoid use of aj inhibitors and Thiazide diuretics in the future. Blood pressure at this time is within the acceptable range. 4. Elevated troponins - Cardiology recommended transferring the patient for a cardiac catheterization once her electrolytes are within the acceptable range. 5. History of dementia okay to continue Donepezil at this time.
--- NOTE | 2020-03-13 14:43 | IPN ---
PROGRESS NOTE DATE: 03/13/2020 SUBJECTIVE: Mrs. Burgos continues to be about the same. She denies any chest pain. She denies shortness of breath. Her orientation continues to improve. Her is still at her bedside. She does not have any acute complaints today. PHYSICAL EXAMINATION: VITAL SIGNS: Blood pressure 106/57, heart rate in the 60's. She is afebrile. Saturation is 98% on room air. Weight has been recorded at 68.1 kg. NECK: Her JVP is not up. LUNGS: Clear. HEART: Regular rhythm. I do not appreciate any murmurs, rubs or gallops. ABDOMEN: Without tenderness or rebound tenderness. EXTREMITIES: Free of edema. NEUROLOGICAL: I do not appreciate any focal signs. LABORATORY STUDIES: CBC is normal. Basic metabolic panel this morning still revealed sodium 124, potassium 4.3, BUN 12, creatinine 0.7, glucose 94, magnesium 1.6. ASSESSMENT AND PLAN: Mrs. Burgos is a 69-year-old female with baseline dementia and hypertension who presented with severe hyponatremia after approximately a 7-10 day history of very poor oral intake. Her sodium is slowly improving, in my opinion it was principally due to HCTZ. As a complicating event, she also had elevated troponin, ST abnormalities on her EKG and septal wall motion abnormality. 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 Even though I am not convinced that this represents thrombolic myocardial infarction, certainly will need further investigation and there is a tentative plan for her to be transferred to [facility]. I do not believe that it is quite appropriate yet as her sodium remains quite low, but once she reaches around 130, I believe that she will be ready. I talked about this with her and her at the bedside again. Unfortunately due to her dementia, she is probably unable to make decisions for herself but the is fully on board. We also discussed potential scenarios including finding of no obstructive disease, which I think is quite possible, but also in the worst case scenario, severe three vessel disease requiring open heart surgery. He is fully prepared to pursue that route if necessary. GILLES
--- NOTE | 2020-03-13 17:30 | IPNPDOC ---
Date Seen The patient was seen on 03/13/20. Progress Note SUBJECTIVE: Awaiting improvement of sodium before transfer discussed. Dr. Donaldson spoke with cardiology at [facility], follows daily. BP stable, was able to participate with PT/OT today. Eating well, denies chest pain or increased SOB. Pleasantly confused. OBJECTIVE: PHYSICAL EXAMINATION: VITAL SIGNS: please see below General: AAOx1, following commands. In NAD HEENT: 3mm pupils, symmetrical, sluggish to light, sclerae clear Neck: supple, normal ROM, no JVD Respiratory: lungs CTAB, no wheeze, no rales, no crackles CVS: RRR, normal S1, S2, no murmurs Abdo: soft, no masses, no hepatosplenomegaly, BS+, no rebound tenderness Extremities: no edema, pulses 2+ MSK: no joint deformities, normal ROM Neuro: no focal neuro deficits, moving all 4 extremities, CN2-12 intact. Strength 5/5 in all 4 extremities. No nystagmus. Psych: calm, cooperative, pleasantly confused LABORATORY DATA: See below. IMAGING: Echocardiogram: 1. Study is of acceptable technical quality, underlying sinus rhythm. 2. Normal LV size with mid and distal septal akinesis, but overall only mildly reduced systolic function with estimated LVEF of 45% to 50%. Grade 1 diastolic dysfunction. 3. No significant valvular disease. 4. Normal central venous pressure. 5. Unable to estimate pulmonary artery pressure, but no signs to suggest pulmonary hypertension. COMMENTS: I certainly cannot rule out ischemic etiology of septal wall motion abnormality, but in this setting, it is somewhat unusual that the apex and anterior wall appear to be completely spared CT head: 1. No acute intracranial abnormality. 2. Mild cerebral atrophy and chronic microangiopathic changes. CXR (03/10/20): No focal consolidation or effusion. MICROBIOLOGY: Please see below. ASSESSMENT: 69-year-old female with a history of anxiety, hypertension, anxiety and dementia presented to the ER with altered mental status, found to have a sodium of 107 secondary to reduced by mouth intake. He has subsequent dehydration. Patient also noted to have elevated troponin of 1.16, likely due to demand ischemia per Dr. Donaldson not a candidate for cardiac catheterization given severely acute illness. Will be admitted to ICU for treatment of severe hyponatremia with hypertonic saline with nephrology on consultation as well as cardiac monitoring and serial troponins. PLAN: #? septal wall MA. Cardiology not completely convinced this is thrombotic event -Patient HD stable, BP improved. -Troponins trending down further -Echocardiogram: above -No prior hx of CAD -D/w Dr. Donaldson who spoke with cardiology at [facility]. Awaiting improvement of sodium numbers then likely transfer -Patient has angioedema to ASA. 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 Recommend skilled PT to progress I with transfers, ambulation and maximize return to home. Pending progression, pt. may require 2WW #Hypotension likely 2/2 to fluid loss 2/2 to SIADH, MA- improving -Eating and drinking well currently -Over diuresis has been improved with desmopressin -Keep off all antihypertensive meds above -Monitor on tele -C/w treatment above #Hypomagnesemia -Given mag run today -F/u AM lab #Elevated bilirubin - Bili slightly improved in setting of dehydration - Liver US neg -F/u CMP in AM #Dementia -AMS in setting of severe hyponatremia -per , stable prior to 1 week ago -Continue to monitor closely -redirect whenever possible -C/w donepezil #GI ppx: - PPI #DVT ppx - lovenox. SCDs, TEDs. Resolved issues: Hypokalemia Lines: R femoral CVC placed on 03/10/20 by ER staff. DISPOSITION: Remains in ICU. Plan is possibly transfer to [facility] for cardiac catheterization or further intervention based on cardiology's recommendations 03/14/20. Nephrology also following closely TOTAL CRITICAL CARE TIME SPENT TREATING PATIENT: 40 MINS VS, I&O, 24H, Fishbone Vital Signs/I&O Vital Signs Date Time Temp Pulse Resp B/P (MAP) Pulse Ox O2 Delivery O2 Flow Rate FiO2 03/13/20 16:00 97.5 79 17 108/58 (75) 98 Room Air I&O- Last 24 Hours up to 6 AM 03/13/20 05:59 Intake Total 1120 ml Output Total 1155 ml Balance -35 ml Laboratory Data 24H LABS Laboratory Tests 2 03/12/20 20:00: Anion Gap 7L, Glomerular Filtration Rate > 60.0, Calcium Level 7.9L 03/13/20 00:18: Anion Gap 6L, Glomerular Filtration Rate > 60.0, Calcium Level 8.1L 03/13/20 04:16: Anion Gap 8, Glomerular Filtration Rate > 60.0, Calcium Level 7.9L, Immature Granulocyte % (Auto) 0.5, Neutrophils (%) (Auto) 69.7H, Lymphocytes (%) (Auto) 17.8L, Monocytes (%) (Auto) 9.2H, Eosinophils (%) (Auto) 2.2, Basophils (%) (Auto) 0.6, Neutrophils # (Auto) 5.8, Lymphocytes # (Auto) 1.5, Monocytes # (Auto) 0.8, Eosinophils # (Auto) 0.2, Basophils # (Auto) 0.1, Nucleated Red Blood Cells % (auto) 0.0, Magnesium Level 1.6L 03/13/20 07:45: Anion Gap 7L, Glomerular Filtration Rate > 60.0, Calcium Level 8.1L, Troponin I 0.13#H 03/13/20 10:41: Urine Random Osmolality 82L, Urine Random Sodium 13 03/13/20 13:47: Anion Gap 6L, Glomerular Filtration Rate > 60.0, Calcium Level 8.4L CBC/BMP Laboratory Tests 03/12/20 20:00 03/13/20 00:18 03/13/20 04:16 03/13/20 07:45 03/13/20 13:47 Microbiology Microbiology 03/10/20 Blood Culture - Preliminary, Resulted No Growth after 48 hours. All Specime... 03/10/20 Blood Culture - Preliminary, Resulted No Growth after 48 hours. All Specime... 03/10/20 Urine Culture - Final, Complete Current Medications Current Medications Medications (Trade) Dose Ordered Sig/Katia Route PRN Reason Start Time Stop Time Status Last Admin Dose Admin Acetaminophen (Tylenol Tab) 650 mg Q4H PRN PO PAIN OR FEVER 03/10/20 21:30 Al Hydrox/Mg Hydrox/Simethicone (Mylanta) 30 ml DAILY PRN PO DYSPEPSIA 03/10/20 21:30 Atorvastatin Calcium (Lipitor) 40 mg QHS PO 03/11/20 21:00 03/12/20 20:29 Clopidogrel Bisulfate (PLAVix) 75 mg DAILY PO 03/12/20 09:00 03/13/20 09:04 Clopidogrel Bisulfate (PLAVix) 300 mg STAT STAT PO 03/10/20 23:05 03/10/20 23:08 DC 03/10/20 23:26 Docusate Sodium (Colace) 100 mg BID PO 03/10/20 21:00 03/13/20 09:04 Donepezil HCl (AriCEPT) 10 mg DAILY PO 03/12/20 09:00 03/13/20 09:04 Enoxaparin Sodium (Lovenox) 40 mg DAILY SC 03/11/20 09:00 03/13/20 09:03 Home Med (Med Rec Complete!) ASDIRECTED XX 03/11/20 01:30 03/11/20 01:34 DC Magnesium Hydroxide (Milk Of Magnesia) 30 ml DAILY PRN PO CONSTIPATION 03/10/20 21:30 Magnesium Sulfate/ Dextrose 1 gm/IV Miscellaneous Supplies 100 ml @ 100 mls/hr 0600,0700 IV 03/13/20 06:00 03/13/20 06:07 DC Pantoprazole Sodium (Protonix) 40 mg DAILY IV 03/11/20 09:00 03/12/20 08:58 DC 03/11/20 08:48 Pantoprazole Sodium (Protonix) 40 mg DAILY PO 03/12/20 09:00 03/13/20 09:04 Polyethylene Glycol (Miralax) 1 pkt DAILYPRN PRN PO CONSTIPATION 03/13/20 11:00 Potassium Chloride 10 meq/ IV Miscellaneous Supplies 100 ml @ 100 mls/hr 0000,0100,0200,0300 IV 03/11/20 00:00 03/11/20 01:23 DC 03/11/20 00:39 Potassium Chloride 20 meq/ IV Miscellaneous Supplies 100 ml @ 100 mls/hr 0330,0430 IV 03/11/20 03:30 03/11/20 07:30 DC 03/11/20 04:49 Senna (Senokot) 2 tab QHS PO 03/13/20 21:00 Sodium Chloride 500 ml @ 15 mls/hr Q24H IV 03/10/20 18:15 03/10/20 20:25 DC 03/10/20 18:27 Sodium Chloride 500 ml @ 40 mls/hr [id number] IV 03/10/20 20:30 03/10/20 23:29 DC 03/10/20 20:44 Sodium Chloride 500 ml @ 40 mls/hr [id number] IV 03/11/20 01:15 03/11/20 04:15 DC 03/11/20 01:55 Allergies Coded Allergies: aspirin (Verified Allergy, Severe, tongue swelling, 03/10/20) Penicillins (Verified Allergy, Intermediate, rash and hives, 03/10/20) Sulfa (Sulfonamide Antibiotics) (Verified Allergy, Intermediate, RASh, hives, lip swelling, 03/10/20) felodipine (Verified Adverse Reaction, Mild, GI upset, 03/10/20) risedronate sodium (Verified Adverse Reaction, Mild, GI Upset, 03/10/20) naproxen (Verified Adverse Reaction, Unknown, GI upset, 03/10/20) Agatha Bedolla MD Mar 13, 2020 17:30
--- NOTE | 2020-03-13 19:12 | ECGEPIP ---
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
--- NOTE | 2020-03-13 19:23 | ECGEPIP ---
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
[2020-03-13 20:38] LABS: BLOOD UREA NITROGEN 14 MG/DL (7-18); CALCIUM LEVEL 8.3 MG/DL (8.8-10.2); CARBON DIOXIDE LEVEL 28 MEQ/L (21-32); CHLORIDE LEVEL 95 MEQ/L (98-107); CREATININE FOR GFR 0.74 MG/DL (0.55-1.30); GLOMERULAR FILTRATION RATE > 60.0 (>39); GLUCOSE, FASTING 141 MG/DL (70-100); POTASSIUM SERUM 3.9 MEQ/L (3.5-5.1); SODIUM LEVEL 128 MEQ/L (136-145)
--- NOTE | 2020-03-13 20:54 | IPNPDOC ---
Subjective Date Seen The patient was seen on 03/13/20. Subjective Chief Complaint/HPI The patient was seen and examined at the bedside today morning in the ICU. Her was also present at the bedside. The patient was deep asleep, but finally when she woke up she was able to answer my questions. She followed commands and moved all extremities. She needed an extra dose of DDAVP last night along with a bolus of d5w 500 mL because she was rapidly correcting her hyponatremia. After that her sodium level has stayed stable overnight and in the morning it was 120. General: Reports: ROS Unobtainable Objective Physical Examination General Exam: Positive: Alert (pt continues to be somnolent), Cooperative Eye Exam: Positive: Conjunctiva & lids normal ENT Exam: Positive: Atraumatic, Mucous membr. moist/pink Chest Exam: Positive: Clear to auscultation, Normal air movement Heart Exam: Positive: Rate Normal, Regular Rhythm, Normal S1, Normal S2; Negative: Gallops, Murmurs, Rubs Abdomen Exam: Positive: Normal bowel sounds, Soft Extremity Exam: Negative: Clubbing, Cyanosis, Edema Assessment /Plan Assessment # Acute severe symptomatic hyponatremia: Pt's urine osmolality is currently at 82, and means that the pt is making more dilute urine to correct her sodium. Continue to monitor BMP every 4 hours. The target for pt's sodium correction over the next 24 hours is up to a sodium of 130. If she corrects over that, then she will need another dose of DDAVP and D5W immediately. # Hypokalemia: continue to maintain potassium above 4.0. # History of hypertension: Blood pressure is normal currently without the use of diuretics, continue to avoid use of asher inhibitors and thiazide diuretics in the future. Likely the inciting factors for the pt's SIADH were these medications. # Elevated troponins: pt will be transferred for a cardiac catheterization when her electrolytes stabilize within normal range. # History of dementia: Continue Donepezil. Plan/VTE VTE Prophylaxis Ordered?: Yes (Pt is on enoxaparin and Plavix) GME ATTESTATION My faculty preceptor for this patient encounter was physically present during the encounter and was fully available. All aspects of the patient interview, examination, medical decision making process, and medical care plan development were reviewed and approved by the faculty preceptor. The faculty preceptor is aware and concurs with the plan as stated in the body of this note and will attest to such by his/her cosignature. VS, I&O, 24H, Fishbone Vital Signs/I&O Vital Signs Date Time Temp Pulse Resp B/P (MAP) Pulse Ox O2 Delivery O2 Flow Rate FiO2 03/13/20 16:00 97.5 79 17 108/58 (75) 98 Room Air I&O- Last 24 Hours up to 6 AM 03/13/20 06:00 Intake Total 1120 ml Output Total 1455 ml Balance -335 ml Laboratory Data 24H LABS Laboratory Tests 2 03/13/20 00:18: Anion Gap 6L, Glomerular Filtration Rate > 60.0, Calcium Level 8.1L 03/13/20 04:16: Anion Gap 8, Glomerular Filtration Rate > 60.0, Calcium Level 7.9L, Immature Granulocyte % (Auto) 0.5, Neutrophils (%) (Auto) 69.7H, Lymphocytes (%) (Auto) 17.8L, Monocytes (%) (Auto) 9.2H, Eosinophils (%) (Auto) 2.2, Basophils (%) (Auto) 0.6, Neutrophils # (Auto) 5.8, Lymphocytes # (Auto) 1.5, Monocytes # (Auto) 0.8, Eosinophils # (Auto) 0.2, Basophils # (Auto) 0.1, Nucleated Red Blood Cells % (auto) 0.0, Magnesium Level 1.6L 03/13/20 07:45: Anion Gap 7L, Glomerular Filtration Rate > 60.0, Calcium Level 8.1L, Troponin I 0.13#H 03/13/20 10:41: Urine Random Osmolality 82L, Urine Random Sodium 13 03/13/20 13:47: Anion Gap 6L, Glomerular Filtration Rate > 60.0, Calcium Level 8.4L 03/13/20 19:57: CBC/BMP Laboratory Tests 03/13/20 00:18 03/13/20 04:16 03/13/20 07:45 03/13/20 13:47 Microbiology Microbiology 03/10/20 Blood Culture - Preliminary, Resulted No Growth after 48 hours. All Specime... 03/10/20 Blood Culture - Preliminary, Resulted No Growth after 48 hours. All Specime... 03/10/20 Urine Culture - Final, Complete Attending Note Attending Note Hyponatremia Metabolic encephalopathy Dementia h/o HTN elevated Trop cont Labs Q 6 hr now. urine osmolality adequately dropped. Pt is auto correcting. Monitor for over correction and need for DDAVP. Na goal~130 by tomorrow. Avoid use of thiazide diuretic in future. Avoid ASHER/ARB for now. ASHER/ARB can probably be slowly reintroduced in future with close monitoring of Na level. Melvin Trivedi DO Mar 13, 2020 20:54 ROMEO TRIVEDI MD Mar 14, 2020 09:33
[2020-03-13] MEDS: SENNA 8.6 MG TAB (SENOKOT) PO SCH (21:00)
[2020-03-13] MEDS: ATORVASTATIN 20 MG TAB PO SCH (21:47)
[2020-03-14] VITALS: BP 120/59
[2020-03-14] MEDS ORDERED: HALOPERIDOL 5MG/ML VIAL (J1630 PER 1) IM STA (01:31)
[2020-03-14 02:16] LABS: BLOOD UREA NITROGEN 13 MG/DL (7-18); CALCIUM LEVEL 8.1 MG/DL (8.8-10.2); CARBON DIOXIDE LEVEL 27 MEQ/L (21-32); CHLORIDE LEVEL 96 MEQ/L (98-107); CREATININE FOR GFR 0.72 MG/DL (0.55-1.30); GLOMERULAR FILTRATION RATE > 60.0 (>39); GLUCOSE, FASTING 105 MG/DL (70-100); SODIUM LEVEL 130 MEQ/L (136-145)
[2020-03-14 04:00] VITALS: BP 139/70
[2020-03-14 05:31] LABS: BASO % 0.4 % (0.0-1.0); EOS # 0.1 10^3/uL (0.0-0.5); EOS % 1.7 % (0.0-3.0); HEMATOCRIT 36.1 % (36.0-47.0); HEMOGLOBIN 12.8 g/dl (12.0-15.5); LYMPH # 1.6 10^3/uL (1.5-5.0); MEAN CORPUSCULAR HEMOGLOBIN 32.4 pg (27.0-33.0); MEAN CORPUSCULAR HGB CONC 35.5 g/dl (32.0-36.5); MEAN CORPUSCULAR VOLUME 91.4 fl (80.0-96.0); MONO # 0.7 10^3/uL (0.0-0.8); MONO % 9.1 % (0.0-5.0); NEUTROPHILS # 5.5 10^3/uL (1.5-8.5); NEUTROPHILS % 68.3 % (36.0-66.0); PLATELET COUNT, AUTOMATED 217 10^3/uL (150-450); RED BLOOD COUNT 3.95 10^6/uL (4.00-5.40)
[2020-03-14] MEDS ORDERED: CLOP75TA2 PO (07:43)
[2020-03-14] MEDS ORDERED: DOK1CAP7 PO (07:43)
[2020-03-14] MEDS ORDERED: MYLASSUD PO (07:43)
[2020-03-14] MEDS ORDERED: PANT40TA29 PO (07:43)
[2020-03-14] MEDS ORDERED: LOVE1INJ SC (07:43)
[2020-03-14] MEDS ORDERED: ACET1TAB55 PO (07:43)
[2020-03-14] MEDS ORDERED: PEG1POW PO (07:43)
[2020-03-14] MEDS ORDERED: ATOR1TAB21 PO (07:43)
[2020-03-14] MEDS ORDERED: SENN18TA PO (07:43)
[2020-03-14 08:00] VITALS: BP 129/61
[2020-03-14] MEDS: ENOXAPARIN 40MG/0.4ML SYRINGE (J1650 PER 10MG) SC SCH (08:03)
[2020-03-14] MEDS: DONEPEZIL 5 MG TAB PO SCH (08:03)
[2020-03-14] MEDS: DOCUSATE SODIUM 100MG CAPSULE PO SCH ×2 (08:03→20:36)
[2020-03-14] MEDS: PANTOPRAZOLE 40MG TAB (PROTONIX) PO SCH (08:03)
[2020-03-14] MEDS: CLOPIDOGREL 75 MG TAB PO SCH (08:03)
[2020-03-14 09:12] LABS: BLOOD UREA NITROGEN 14 MG/DL (7-18); CALCIUM LEVEL 8.4 MG/DL (8.8-10.2); CARBON DIOXIDE LEVEL 27 MEQ/L (21-32); CHLORIDE LEVEL 96 MEQ/L (98-107); CREATININE FOR GFR 0.75 MG/DL (0.55-1.30); GLOMERULAR FILTRATION RATE > 60.0 (>39); GLUCOSE, FASTING 144 MG/DL (70-100); POTASSIUM SERUM 3.7 MEQ/L (3.5-5.1); SODIUM LEVEL 131 MEQ/L (136-145)
[2020-03-14 12:00] VITALS: BP 116/62
[2020-03-14 12:16] LABS: CLOSTRIDIUM DIFFICILE PCR NEGATIVE (NEGATIVE)
[2020-03-14 16:00] VITALS: BP 112/57
--- NOTE | 2020-03-14 17:07 | DS.PDOC ---
Discharge Summary General Date of Admission Mar 10, 2020 at 21:29 Date of Discharge 03/14/20 Attending Physician: Agatha Bedolla MD Discharge Summary HISTORY OF PRESENT ILLNESS: Patient is a 69-year-old female with a history of hypertension, dementia, anxiety, depression, brought to ED by for a week-long history of altered mental status. Patient was seen in PCP clinic, blood work revealed Na of 106. On arrival to the ER repeat BMP showed Na of 107 with a K+ of 2.9. Patient's describes severely reduced by mouth intake of both solids and liquids for the past week. She was able to ambulate and perform some of her chores. However, he attributed the change in altered mental status to her dementia. He denies any recent falls, but he found a bruise on her R arm. He became concerned when she had 2 incontinent urines. Patient is unable to give an accurate history regarding her altered mental status. Patient's answers simple yes or no questions. However, appears confused and is unable to orient herself. Patient has been denies recent following her head injury. Nephrology was consulted from the ED who recommended hypertonic saline as well as BMP every 2 hours. Further patient had a troponin elevation of 1.16, along with a BNP of 1200. EKG showed normal sinus rhythm. She denies chest pain, shortness of breath, nausea, vomiting, diarrhea, subjective fevers and chills. I discussed with Dr. Donaldson who recommended monitoring of her cardiac enzymes and EKGs as the patient is acutely ill and is not a candidate for cardiac catheterization. She was admitted to the ICU for management of severe hyponatremia under hospitalist service. R Femoral CVC was placed in ER. HOSPITAL COURSE: Patient was initially treated with 3% saline for hyponatremia but was stopped that same night due to rapid correction. She was later treated with D5W and desmopressin due to increased U/O (100-150 cc/hr) and this showed slow improvement of sodium. 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 Nephrology had followed closely and later signed off. She had episode of loose stool on 03/14/20 but tested neg for c. diff. Hypotension patient had initially upon admission was likely 2/2 to SIADH and improved upon resolution of high urine output. She was started on plavix in place of ASA due to allergy, statin. Troponin was trended and went up as high as 1.28 from admission but gradually began to trend down. Repeat ECG showed ? septal wall NV. Cardiology not completely convinced this is thrombotic event as patient denied chest pain, hypotension rapidly corrected. Echocardiogram showed EF 45-50%, could not rule out ischemic etiology of septal wall motion abnormality, but in this setting, it is somewhat unusual that the apex and anterior wall appear to be completely spared. No prior hx of CAD. Dr. Donaldson (stator connector) spoke with Dr. Novoa who agreed patient would need cardiac catheterization to further assess. On 03/14/20 patient was transferred to [facility] under hospitalist service as primary. At the time of transfer, patient denies chest pain, n/v/d, shortness of breath, fevers or chills. PAST MEDICAL HISTORY: Dementia HNT Anxiety Depression PAST SURGICAL HISTORY: Reviewed with patient's , none SOCIAL HISTORY: Former smoker Occasional etoh use No illicits FAMILY HISTORY: reviewed with , no pertinent hx. ALLERGIES: Please see below. DISCHARGE MEDICATIONS: Please see below. PHYSICAL EXAMINATION: VITAL SIGNS: please see below General: AAOx1, pleasantly confused. Following commands. In NAD HEENT: 3mm pupils, symmetrical, sluggish to light, sclerae clear Neck: supple, normal ROM, no JVD Respiratory: lungs CTAB, no wheeze, no rales, no crackles CVS: RRR, normal S1, S2, no murmurs Abdo: soft, no masses, no hepatosplenomegaly, BS+, no rebound tenderness Extremities: no edema, pulses 2+ MSK: no joint deformities, normal ROM Neuro: no focal neuro deficits, moving all 4 extremities, CN2-12 intact. Strength 5/5 in all 4 extremities. No nystagmus. Psych: calm, cooperative, pleasantly confused LABORATORY DATA: See below. IMAGING: Echocardiogram: 1. Study is of acceptable technical quality, underlying sinus rhythm. 2. Normal LV size with mid and distal septal akinesis, but overall only mildly reduced systolic function with estimated LVEF of 45% to 50%. Grade 1 diastolic dysfunction. 3. No significant valvular disease. 4. Normal central venous pressure. 5. Unable to estimate pulmonary artery pressure, but no signs to suggest pulmonary hypertension. COMMENTS: I certainly cannot rule out ischemic etiology of septal wall motion abnormality, but in this setting, it is somewhat unusual that the apex and anterior wall appear to be completely spared CT head: 1. No acute intracranial abnormality. 2. Mild cerebral atrophy and chronic microangiopathic changes. CXR (03/10/20): No focal consolidation or effusion. MICROBIOLOGY: Please see below. ASSESSMENT: 69-year-old female with a history of anxiety, hypertension, anxiety and dementia presented to the ER with altered mental status, found to have a sodium of 107 secondary to reduced by mouth intake. He has subsequent dehydration. Patient also noted to have elevated troponin of 1.16, likely due to demand ischemia per Dr. Donaldson not a candidate for cardiac catheterization given severely acute illness. Will be admitted to ICU for treatment of severe hyponatremia with hypertonic saline with nephrology on consultation as well as cardiac monitoring and serial troponins. PLAN: #? septal wall NV. -Patient HD stable, BP improved. -Troponins trending down further to 0.13 -Echocardiogram: above -No prior hx of CAD -D/w Dr. Donaldson who spoke with Dr. Novoa (cardiology) at [facility] who agreed with transfer for cardiac cath -Patient has angioedema to [facility]. C/w plavix 300, statin #Severe hyponatremia with increased AMS 2/2 SIADH -Sodium 106 on admission, currently 130 -Received 3% saline, later corrected with D5W and desmopressin due to incr U/O -U/O much improved -Holding ACEi, HCTZ, gabapentin -CT head above -Nephrology followed closely and has signed off, c/w fluid restriction #Diarrhea/loose stools -No abx use this hospital stay, no prior hx of c. diff or recent hospitalization -C. diff PCR neg -Continue to monitor #Physical deconditioning -PT: Demonstrates decrease awareness with transfers, ambulation requiring minAx1 with SPT with use of 2WW. Recommend skilled PT to progress with transfers, ambulation and maximize return to home. Pending progression, pt. may require 2WW -C/w PT/OT, lives at home with so may require rehab #Hypomagnesemia, acute -Given mag run 03/13/20 -Today wnl #Elevated bilirubin - Bili slightly improving - Liver US neg - F/u CMP #Dementia -AMS increased in setting of severe hyponatremia -Although she is weaker, she has not worsened -per , stable prior to 1 week ago -Continue to monitor closely -redirect whenever possible -C/w home meds #GI ppx: - PPI #DVT ppx - lovenox. SCDs, TEDs. Resolved issues: Hypokalemia Hypotension likely 2/2 to fluid loss 2/2 to SIADH, ? NV Lines: R femoral CVC placed on 03/10/20 by ER staff. DISPOSITION: Discharging today to [facility] under care of [facility] ospitalist TIME SPENT ON DISCHARGE: Greater than 30 minutes. Vital Signs/I&Os Vital Signs Date Time Temp Pulse Resp B/P (MAP) Pulse Ox O2 Delivery O2 Flow Rate FiO2 03/14/20 12:00 97.2 85 16 116/62 (80) 96 Room Air I&O- Last 24 Hours up to 6 AM 03/14/20 06:00 Intake Total 970 ml Output Total 2300 ml Balance -1330 ml Laboratory Data Labs 24H Laboratory Tests 2 03/13/20 19:57: Anion Gap 5L, Glomerular Filtration Rate > 60.0, Calcium Level 8.3L 03/14/20 01:45: Anion Gap 7L, Glomerular Filtration Rate > 60.0, Calcium Level 8.1L 03/14/20 05:00: Immature Granulocyte % (Auto) 0.5, Neutrophils (%) (Auto) 68.3H, Lymphocytes (%) (Auto) 20.0L, Monocytes (%) (Auto) 9.1H, Eosinophils (%) (Auto) 1.7, Basophils (%) (Auto) 0.4, Neutrophils # (Auto) 5.5, Lymphocytes # (Auto) 1.6, Monocytes # (Auto) 0.7, Eosinophils # (Auto) 0.1, Basophils # (Auto) 0.0, Nucleated Red Blood Cells % (auto) 0.0, Magnesium Level 2.2 03/14/20 08:01: Anion Gap 8, Glomerular Filtration Rate > 60.0, Calcium Level 8.4L 03/14/20 09:07: Clostridium difficile [id number] PRESUMPTIVE NEGATIVE, Clostridium difficile Toxin (PCR) NEGATIVE CBC/BMP Laboratory Tests 03/13/20 19:57 03/14/20 01:45 03/14/20 05:00 03/14/20 08:01 Microbiology Microbiology 03/10/20 Blood Culture - Preliminary, Resulted No Growth after 72 hours. All specime... 03/10/20 Blood Culture - Preliminary, Resulted No Growth after 72 hours. All specime... 03/10/20 Urine Culture - Final, Complete Discharge Medications Scheduled Atorvastatin Calcium (Atorvastatin Calcium) 40 Mg Tablet, 40 MG PO QHS, (Reported) Atorvastatin Calcium (Atorvastatin Calcium) 20 Mg Tablet, 40 MG PO QHS Clopidogrel Bisulfate (Clopidogrel) 75 Mg Tablet, 75 MG PO DAILY Donepezil HCl (Donepezil HCl) 10 Mg Tablet, 10 MG PO DAILY, (Reported) Enoxaparin Sodium (Lovenox) 40 Mg/0.4 Ml Syringe, 40 MG SC DAILY Hydrochlorothiazide (Hydrochlorothiazide) 25 Mg Tablet, 25 MG PO DAILY, (Reported) Lisinopril (Lisinopril) 20 Mg Tablet, 20 MG PO BID, (Reported) Memantine HCl/Donepezil HCl (Namzaric 28 mg-10 mg Capsule) 1 Each Cap.spr.24, 1 CAP PO QHS, (Reported) Pantoprazole Sodium (Pantoprazole Sodium) 40 Mg Tablet.dr, 40 MG PO DAILY Paroxetine (Paroxetine HCl) 10 Mg Tablet, 10 MG PO DAILY, (Reported) Scheduled PRN Acetaminophen (Acetaminophen) 325 Mg Tablet, 650 MG PO Q6HP PRN for PAIN OR FEVER Aluminum/Magnesium/Simeth (Mag-Al Plus Suspension) 30 Ml Oral.susp, 30 ML PO DAILY PRN for DYSPEPSIA Allergies Coded Allergies: aspirin (Verified Allergy, Severe, tongue swelling, 03/10/20) Penicillins (Verified Allergy, Intermediate, rash and hives, 03/10/20) Sulfa (Sulfonamide Antibiotics) (Verified Allergy, Intermediate, RASh, hives, lip swelling, 03/10/20) hydrochlorothiazide (Verified Adverse Reaction, Severe, Hyponatremia, 03/14/20) felodipine (Verified Adverse Reaction, Mild, GI upset, 03/10/20) risedronate sodium (Verified Adverse Reaction, Mild, GI Upset, 03/10/20) naproxen (Verified Adverse Reaction, Unknown, GI upset, 03/10/20) Agatha Bedolla MD Mar 14, 2020 17:07
[2020-03-14 20:00] VITALS: BP 104/63
[2020-03-14] MEDS: SENNA 8.6 MG TAB (SENOKOT) PO SCH (20:36)
[2020-03-14] MEDS: ATORVASTATIN 20 MG TAB PO SCH (20:37)
--- NOTE | 2020-03-14 23:26 | IPN ---
NEPHROLOGY PROGRESS NOTE DATE: 03/14/2020 SUBJECTIVE: Patient was seen and examined at the bedside today morning. Her was also present at the bedside. The hyponatremia continues to gradually improve. Renal function is stable. Patient's mental status is significantly better. OBJECTIVE: VITAL SIGNS: Temperature 96.8 degrees Fahrenheit, blood pressure 104/63, pulse 89, respiratory rate 18, saturating 95% on room air. INTAKE AND OUTPUT: Urine output recorded as 2.3 liters yesterday and 1.2 liters so far today since overnight. PHYSICAL EXAMINATION: GENERAL: Patient is awake, alert, oriented x2, laying in bed, in no apparent distress. HEAD/NECK: Extraocular muscles intact. Pupils equally round and reactive to light. Mucous membranes are moist. Neck is supple. There is no JVD. CARDIOVASCULAR: S1, S2, regular rate. No edema of the bilateral lower extremities. RESPIRATORY: Chest is clear to auscultation bilaterally. Bilateral equal air entry. No rales or rhonchi. ABDOMEN: Soft, positive bowel sounds, nontender. No organomegaly. MUSCULOSKELETAL: No clubbing or cyanosis. Pulses are 2+. ACADEMIC ADVISING DIRECTOR: No focal deficit. Power is 5/5 in all extremities. LABORATORY REVIEW: CBC showed WBC 8, hemoglobin 12.8, platelets 217,000. BMP showed sodium 131, potassium 3.7, chloride 96, bicarb 27, BUN 14, creatinine 0.7. CURRENT INPATIENT MEDICATIONS: Patient's medications were all reviewed by myself. No significant change in the medications today as compared with yesterday. ASSESSMENT AND PLAN: 1. Hyponatremia: Patient is slowly correcting herself. Urine osmolality is adequately reduced now. Sodium level has improved to 131 now. Avoid further use of Thiazide diuretics in the future. ASHER inhibitors can be slowly reintroduced with close monitoring of sodium level and renal function. 2. History of hypertension: Thiazide and ASHER inhibitors were held because of severe hyponatremia. Blood pressures are acceptable as this time. She is not requiring any antihypertensives at this time. 3. Elevated troponins: Cardiology is on board as well. She is currently on Plavix and statin. She is okay to be transferred for higher level of care and possible cardiac catheterization from nephrology standpoint now. DISPOSITION: Patient's sodium level is improved above 130 and is improving in the right direction. At this point, nephrology service is going to sign off. Patient can be discharged from nephrology standpoint. GILLES
== END 2020-03-14 21:20 | disposition short-term general hospital (02) | DRG 643 ==
LOC: M ED 16:32 → M ED INP 21:29 → M PCU 03-11 00:32
PROVIDERS: ADMIT Family Medicine; ATTEND Internal Medicine
DX: E22.2 Syndrome of inappropriate secretion of antidiuretic hormone (principal); I21.29 ST elevation (STEMI) myocardial infarction involving other sites; I10 Essential (primary) hypertension; F03.90 Unspecified dementia, unspecified severity, without behavioral disturbance, psychotic disturbance, mood disturbance, and anxiety; F41.9 Anxiety disorder, unspecified; F32.9 Major depressive disorder, single episode, unspecified; R05 Cough; R63.0 Anorexia; E87.6 Hypokalemia; R53.81 Other malaise; R53.83 Other fatigue; Z79.899 Other long term (current) drug therapy; Z11.52 Encounter for screening for COVID-19; Z88.6 Allergy status to analgesic agent; Z87.891 Personal history of nicotine dependence; Z88.0 Allergy status to penicillin; Z88.2 Allergy status to sulfonamides; Z88.8 Allergy status to other drugs, medicaments and biological substances

== ENCOUNTER → 2020-03-10 | Outpatient (REF) | payer MEDICARE, OTHER ==
[2020-03-10 13:56] LABS: BASO % 0.2 % (0.0-1.0); EOS % 0.2 % (0.0-3.0); HEMATOCRIT 42.2 % (36.0-47.0); HEMOGLOBIN 15.9 g/dl (12.0-15.5); LYMPH # 1.1 10^3/uL (1.5-5.0); LYMPH % 11.3 % (24.0-44.0); MEAN CORPUSCULAR HEMOGLOBIN 31.9 pg (27.0-33.0); MEAN CORPUSCULAR VOLUME 84.7 fl (80.0-96.0); MONO # 0.9 10^3/uL (0.0-0.8); MONO % 9.5 % (0.0-5.0); NEUTROPHILS # 7.6 10^3/uL (1.5-8.5); NEUTROPHILS % 78.3 % (36.0-66.0); PLATELET COUNT, AUTOMATED 301 10^3/uL (150-450); RED BLOOD COUNT 4.98 10^6/uL (4.00-5.40); WHITE BLOOD COUNT 9.7 10^3/uL (4.0-10.0)
[2020-03-10 14:19] LABS: MEAN CORPUSCULAR HGB CONC 37.7 g/dl (32.0-36.5)
[2020-03-10 15:15] LABS: BLOOD UREA NITROGEN 10 MG/DL (7-18); CARBON DIOXIDE LEVEL 26 MEQ/L (21-32); CHLORIDE LEVEL 69 MEQ/L (98-107); CREATININE FOR GFR 0.73 MG/DL (0.55-1.30); GLOMERULAR FILTRATION RATE > 60.0 (>39); GLUCOSE, FASTING 147 MG/DL (70-100); POTASSIUM SERUM 3.4 MEQ/L (3.5-5.1); SODIUM LEVEL 108 MEQ/L (136-145)
[2020-03-10 15:16] LABS: ALBUMIN 4.1 GM/DL (3.2-5.2); ALT/SGPT 49 U/L (12-78); BILIRUBIN,TOTAL 1.5 MG/DL (0.2-1.0); CALCIUM LEVEL 9.1 MG/DL (8.8-10.2); TOTAL PROTEIN 6.5 GM/DL (6.4-8.2)
== END ==
LOC: M SFHCPLAZ 12:21
PROVIDERS: ATTEND Physician Assistant
DX: R53.83 Other fatigue (principal); R53.81 Other malaise; R63.0 Anorexia; R05 Cough; Z11.52 Encounter for screening for COVID-19
CPT/HCPCS: 36415; 80053; 85025; U0003

== ENCOUNTER → 2020-03-28 | Outpatient (REF) | payer MEDICARE, OTHER ==
[~2020-03-28] MED LIST changes: +ACET1TAB55 PO; +ATOR1TAB21 PO; +ATOR40TA75 PO; +CLOP75TA2 PO; +DOK1CAP7 PO; +DONE10TA90 PO; +HYDR25TAB PO; +LISI-538 PO; +LOVE1INJ SC; +MYLASSUD PO; +NAMZ1CAP2 PO; +PANT40TA29 PO; +PARO5TAB PO; +PEG1POW PO; +SENN18TA PO
[2020-03-28 14:11] LABS: HEMOGLOBIN A1c 5.6 %
[2020-03-28 14:30] LABS: ALBUMIN 3.5 GM/DL (3.2-5.2); ALT/SGPT 38 U/L (12-78); BILIRUBIN,TOTAL 0.4 MG/DL (0.2-1.0); BLOOD UREA NITROGEN 6 MG/DL (7-18); CALCIUM LEVEL 9.4 MG/DL (8.8-10.2); CARBON DIOXIDE LEVEL 31 MEQ/L (21-32); CHLORIDE LEVEL 102 MEQ/L (98-107); CHOLESTEROL LEVEL 148 MG/DL (<200); CHOLESTEROL RISK RATIO 2.276 (<5); CREATININE FOR GFR 0.77 MG/DL (0.55-1.30); FREE T4 0.97 NG/DL (0.76-1.46); GLOMERULAR FILTRATION RATE > 60.0 (>39); GLUCOSE, FASTING 106 MG/DL (70-100); HDL CHOLESTEROL 65 MG/DL (>40); LDL CHOLESTEROL 62 MG/DL (<100); NON-HDL-C 83 MG/DL; NT-PRO BNP 830 PG/ML (<125); POTASSIUM SERUM 4.4 MEQ/L (3.5-5.1); SODIUM LEVEL 140 MEQ/L (136-145); TOTAL PROTEIN 6.3 GM/DL (6.4-8.2); TRIGLYCERIDES LEVEL 106 MG/DL (<150)
[2020-03-28 15:29] LABS: OSMOLALITY SERUM 283 MOSM/KG (280-301)
== END ==
LOC: M SFHCPLAZ 09:27
PROVIDERS: ATTEND Family Medicine
DX: E87.1 Hypo-osmolality and hyponatremia (principal); R73.01 Impaired fasting glucose; E78.2 Mixed hyperlipidemia

== ENCOUNTER → 2020-04-07 | Outpatient (REF) | payer MEDICARE, OTHER ==
[~2020-04-07] MED LIST changes: +HYDR-3490 PO; -HYDR25TAB PO; -LISI-538 PO; +LISI20TA33 PO
[2020-04-07 12:49] LABS: BLOOD UREA NITROGEN 22 MG/DL (7-18); CARBON DIOXIDE LEVEL 32 MEQ/L (21-32); CHLORIDE LEVEL 106 MEQ/L (98-107); CREATININE FOR GFR 0.84 MG/DL (0.55-1.30); GLOMERULAR FILTRATION RATE > 60.0 (>39); GLUCOSE, FASTING 100 MG/DL (70-100); POTASSIUM SERUM 3.7 MEQ/L (3.5-5.1); SODIUM LEVEL 144 MEQ/L (136-145)
[2020-04-07 12:50] LABS: ALBUMIN 3.9 GM/DL (3.2-5.2); CALCIUM LEVEL 9.8 MG/DL (8.8-10.2); MAGNESIUM LEVEL 1.9 MG/DL (1.8-2.4); NT-PRO BNP 99 PG/ML (<125); PHOSPHORUS LEVEL 2.9 MG/DL (2.5-4.9)
== END ==
LOC: M SFHCPLAZ 08:25
PROVIDERS: ATTEND Family Medicine
DX: I11.0 Hypertensive heart disease with heart failure (principal); I50.42 Chronic combined systolic (congestive) and diastolic (congestive) heart failure

== ENCOUNTER → 2020-06-05 | Outpatient (REF) | payer MEDICARE, OTHER ==
[~2020-06-05] MED LIST changes: -PEG1POW PO; +POLY17PO18 PO
[2020-06-05 14:02] LABS: ALT/SGPT 37 U/L (12-78); BILIRUBIN,TOTAL 0.7 MG/DL (0.2-1.0); BLOOD UREA NITROGEN 15 MG/DL (7-18); CALCIUM LEVEL 9.7 MG/DL (8.8-10.2); CARBON DIOXIDE LEVEL 33 MEQ/L (21-32); CHLORIDE LEVEL 102 MEQ/L (98-107); CREATININE FOR GFR 0.73 MG/DL (0.55-1.30); GLOMERULAR FILTRATION RATE > 60.0 (>39); GLUCOSE, FASTING 115 MG/DL (70-100); NT-PRO BNP 63 PG/ML (<125); POTASSIUM SERUM 3.6 MEQ/L (3.5-5.1); SODIUM LEVEL 140 MEQ/L (136-145); TOTAL PROTEIN 7.3 GM/DL (6.4-8.2)
== END ==
LOC: M SFHCPLAZ 12:18
PROVIDERS: ATTEND Family Medicine
DX: I11.0 Hypertensive heart disease with heart failure (principal); I50.42 Chronic combined systolic (congestive) and diastolic (congestive) heart failure
CPT/HCPCS: 36415; 80053; 83735; 83880; G0463

== ENCOUNTER → 2020-06-12 | Outpatient (REF) | payer MEDICARE, OTHER ==
[2020-06-12 14:44] LABS: ALBUMIN 4.3 GM/DL (3.2-5.2); BLOOD UREA NITROGEN 27 MG/DL (7-18); CALCIUM LEVEL 10.7 MG/DL (8.8-10.2); CARBON DIOXIDE LEVEL 31 MEQ/L (21-32); CHLORIDE LEVEL 104 MEQ/L (98-107); CREATININE FOR GFR 0.85 MG/DL (0.55-1.30); GLOMERULAR FILTRATION RATE > 60.0 (>39); GLUCOSE, FASTING 141 MG/DL (70-100); NT-PRO BNP 29 PG/ML (<125); PHOSPHORUS LEVEL 3.4 MG/DL (2.5-4.9); POTASSIUM SERUM 4.4 MEQ/L (3.5-5.1); SODIUM LEVEL 140 MEQ/L (136-145)
== END ==
LOC: M SFHCPLAZ 09:49
PROVIDERS: ATTEND Physician Assistant
DX: E87.1 Hypo-osmolality and hyponatremia (principal); I50.32 Chronic diastolic (congestive) heart failure; R63.5 Abnormal weight gain
CPT/HCPCS: 36415; 80069; 83880; G0463

== ENCOUNTER → 2020-09-11 | Outpatient (CLI) | payer MEDICARE, OTHER ==
[~2020-09-11] MED LIST changes: +DOK1CAP4 PO; -DOK1CAP7 PO
--- NOTE | 2020-09-11 16:13 | REP ---
INDICATION: BLOATING. COMPARISON: None. FINDINGS: KUB shows the intestinal gas pattern to be nonspecific. The organ silhouettes insofar as delineated are unremarkable. There is no evidence of free intraperitoneal air. IMPRESSION: Nonspecific. <Electronically signed by Ceasar Sharma > 09/11/20 [id number]
[2020-09-11 16:40] LABS: BASO % 0.3 % (0.0-1.0); EOS % 0.2 % (0.0-3.0); HEMATOCRIT 47.2 % (36.0-47.0); LYMPH # 0.8 10^3/uL (1.5-5.0); LYMPH % 13.4 % (24.0-44.0); MEAN CORPUSCULAR HEMOGLOBIN 31.7 pg (27.0-33.0); MEAN CORPUSCULAR HGB CONC 33.9 g/dl (32.0-36.5); MEAN CORPUSCULAR VOLUME 93.5 fl (80.0-96.0); MONO # 0.7 10^3/uL (0.0-0.8); MONO % 12.2 % (2.0-8.0); NEUTROPHILS # 4.5 10^3/uL (1.5-8.5); NEUTROPHILS % 73.7 % (36.0-66.0); PLATELET COUNT, AUTOMATED 192 10^3/uL (150-450); RED BLOOD COUNT 5.05 10^6/uL (4.00-5.40); WHITE BLOOD COUNT 6.1 10^3/uL (4.0-10.0)
[2020-09-11 17:08] LABS: CALCIUM LEVEL 9.2 MG/DL (8.8-10.2); CREATININE FOR GFR 1.1 MG/DL (0.55-1.30); GLOMERULAR FILTRATION RATE 52.1 (>39); POTASSIUM SERUM 4.1 MEQ/L (3.5-5.1); TOTAL PROTEIN 7.3 GM/DL (6.4-8.2)
== END ==
LOC: M PLAIMG 15:41
PROVIDERS: ATTEND Physician Assistant
DX: R11.11 Vomiting without nausea (principal); R19.7 Diarrhea, unspecified; R14.0 Abdominal distension (gaseous)
CPT/HCPCS: 36415; 74018; 80053; 83690; 85025; G0463

== ENCOUNTER → 2020-10-27 | Outpatient (CLI) | payer MEDICARE, OTHER ==
[2020-10-27 14:30] LABS: BASO # 0.1 10^3/uL (0.0-0.2); BASO % 0.8 % (0.0-1.0); EOS # 0.3 10^3/uL (0.0-0.5); EOS % 4.5 % (0.0-3.0); HEMATOCRIT 51.5 % (36.0-47.0); HEMOGLOBIN 17.4 g/dl (12.0-15.5); LYMPH # 1.4 10^3/uL (1.5-5.0); LYMPH % 18.9 % (24.0-44.0); MEAN CORPUSCULAR HEMOGLOBIN 31.8 pg (27.0-33.0); MEAN CORPUSCULAR HGB CONC 33.8 g/dl (32.0-36.5); MONO # 0.7 10^3/uL (0.0-0.8); NEUTROPHILS # 4.9 10^3/uL (1.5-8.5); NEUTROPHILS % 66.1 % (36.0-66.0); PLATELET COUNT, AUTOMATED 226 10^3/uL (150-450); RED BLOOD COUNT 5.48 10^6/uL (4.00-5.40); WHITE BLOOD COUNT 7.3 10^3/uL (4.0-10.0)
[2020-10-27 15:10] LABS: ALBUMIN 4.1 GM/DL (3.2-5.2); BILIRUBIN,TOTAL 1.1 MG/DL (0.2-1.0); CALCIUM LEVEL 9.8 MG/DL (8.8-10.2); CHOLESTEROL RISK RATIO 3.489 (<5); CREATININE FOR GFR 1.04 MG/DL (0.55-1.30); GLOMERULAR FILTRATION RATE 55.6 (>39); MAGNESIUM LEVEL 2.1 MG/DL (1.8-2.4); POTASSIUM SERUM 4.3 MEQ/L (3.5-5.1); TOTAL PROTEIN 7.5 GM/DL (6.4-8.2)
== END ==
LOC: M PLALAB 10:00
PROVIDERS: ATTEND Family Medicine
DX: E53.8 Deficiency of other specified B group vitamins (principal); I11.0 Hypertensive heart disease with heart failure; E78.2 Mixed hyperlipidemia; I50.42 Chronic combined systolic (congestive) and diastolic (congestive) heart failure
CPT/HCPCS: 36415; 80053; 80061; 82607; 82728; 83735; 83880; 85025; G0463

== ENCOUNTER → 2021-06-17 | Outpatient (CLI) | payer MEDICARE, OTHER ==
[2021-06-17 10:56] LABS: BASO # 0.1 10^3/uL (0.0-0.2); BASO % 0.8 % (0.0-1.0); EOS # 0.4 10^3/uL (0.0-0.5); EOS % 4.7 % (0.0-3.0); HEMATOCRIT 48.8 % (36.0-47.0); HEMOGLOBIN 16.7 g/dl (12.0-15.5); LYMPH % 26.6 % (24.0-44.0); MEAN CORPUSCULAR HEMOGLOBIN 31.1 pg (27.0-33.0); MEAN CORPUSCULAR HGB CONC 34.2 g/dl (32.0-36.5); MEAN CORPUSCULAR VOLUME 90.9 fl (80.0-96.0); MONO # 0.8 10^3/uL (0.0-0.8); MONO % 10.3 % (2.0-8.0); NEUTROPHILS # 4.3 10^3/uL (1.5-8.5); NEUTROPHILS % 57.2 % (36.0-66.0); PLATELET COUNT, AUTOMATED 249 10^3/uL (150-450); RED BLOOD COUNT 5.37 10^6/uL (4.00-5.40); WHITE BLOOD COUNT 7.6 10^3/uL (4.0-10.0)
[2021-06-17 11:23] LABS: HEMOGLOBIN A1c 10.2 %
[2021-06-17 11:30] LABS: ALBUMIN 3.9 GM/DL (3.2-5.2); ALT/SGPT 42 U/L (12-78); BILIRUBIN,TOTAL 0.8 MG/DL (0.2-1.0); BLOOD UREA NITROGEN 12 MG/DL (7-18); CALCIUM LEVEL 9.7 MG/DL (8.8-10.2); CARBON DIOXIDE LEVEL 28 MEQ/L (21-32); CHLORIDE LEVEL 103 MEQ/L (98-107); CHOLESTEROL LEVEL 174 MG/DL (<200); CHOLESTEROL RISK RATIO 3.782 (<5); CREATININE FOR GFR 0.86 MG/DL (0.55-1.30); FERRITIN 107 NG/ML (8-252); FREE T4 0.92 NG/DL (0.76-1.46); GLOMERULAR FILTRATION RATE > 60.0 (>39); GLUCOSE, FASTING 246 MG/DL (70-100); HDL CHOLESTEROL 46 MG/DL (>40); LDL CHOLESTEROL 81 MG/DL (<100); NON-HDL-C 128 MG/DL; NT-PRO BNP 17 PG/ML (<125); POTASSIUM SERUM 4.4 MEQ/L (3.5-5.1); SODIUM LEVEL 138 MEQ/L (136-145); TOTAL PROTEIN 7.1 GM/DL (6.4-8.2); TRIGLYCERIDES LEVEL 233 MG/DL (<150)
[2021-06-17 11:32] LABS: PTH INTACT 68.1 PG/ML (18.5-88.0); TOTAL 25(OH) VITAMIN D 59.4 NG/ML (30.0-100.0)
== END ==
LOC: M PLALAB 07:56
PROVIDERS: ATTEND Family Medicine
DX: E53.8 Deficiency of other specified B group vitamins (principal); E55.9 Vitamin D deficiency, unspecified; R73.01 Impaired fasting glucose; E78.2 Mixed hyperlipidemia

== ENCOUNTER → 2021-06-17 | Outpatient (CLI) | payer MEDICARE, OTHER | LOC: M WHC 07:10 | PROVIDERS: ATTEND Family Medicine | DX: Z12.31 Encounter for screening mammogram for malignant neoplasm of breast (principal); E53.8 Deficiency of other specified B group vitamins; E55.9 Vitamin D deficiency, unspecified; R73.01 Impaired fasting glucose; E78.2 Mixed hyperlipidemia; Z79.899 Other long term (current) drug therapy; Z79.01 Long term (current) use of anticoagulants ==

== ENCOUNTER → 2021-07-30 | Outpatient (CLI) | payer MEDICARE, OTHER ==
[2021-07-30 10:10] LABS: APPEARANCE, URINE CLEAR (CLEAR); BACTERIA, URINE AUTO NEGATIVE (NEGATIVE); BILIRUBIN, URINE AUTO NEGATIVE (NEGATIVE); BLOOD, URINE BLOOD NEGATIVE (NEGATIVE); COLOR, URINE STRAW (YELLOW); GLUCOSE, URINE (UA) AUTO 3+ mg/dL (NEGATIVE); KETONE, URINE AUTO NEGATIVE (NEGATIVE); LEUKOCYTE ESTERASE, URINE AUTO TRACE (NEGATIVE); MUCUS, URINE SMALL (NEGATIVE); NITRITE, URINE AUTO NEGATIVE (NEGATIVE); PROTEIN, URINE AUTO NEGATIVE (NEGATIVE); RBC, URINE AUTO 1 /HPF (0-3); SPECIFIC GRAVITY URINE AUTO 1.005 (1.002-1.035); SQUAMOUS EPITHELIAL CELL UR AU 0 /HPF (0-6); UROBILINOGEN, URINE AUTO 0.2 mg/dL (0.0-2.0); WBC, URINE AUTO 1 /HPF (0-3)
[2021-07-30 10:11] LABS: BASO # 0.1 10^3/uL (0.0-0.2); BASO % 0.9 % (0.0-1.0); EOS # 0.2 10^3/uL (0.0-0.5); EOS % 3.4 % (0.0-3.0); HEMATOCRIT 44.5 % (36.0-47.0); HEMOGLOBIN 15.8 g/dl (12.0-15.5); LYMPH # 1.7 10^3/uL (1.5-5.0); LYMPH % 24.4 % (24.0-44.0); MEAN CORPUSCULAR HEMOGLOBIN 32.2 pg (27.0-33.0); MEAN CORPUSCULAR HGB CONC 35.5 g/dl (32.0-36.5); MEAN CORPUSCULAR VOLUME 90.6 fl (80.0-96.0); MONO # 0.7 10^3/uL (0.0-0.8); NEUTROPHILS # 4.3 10^3/uL (1.5-8.5); NEUTROPHILS % 60.7 % (36.0-66.0); PLATELET COUNT, AUTOMATED 228 10^3/uL (150-450); RED BLOOD COUNT 4.91 10^6/uL (4.00-5.40)
[2021-07-30 10:44] LABS: ALBUMIN 3.7 GM/DL (3.2-5.2); BILIRUBIN,TOTAL 0.7 MG/DL (0.2-1.0); CALCIUM LEVEL 9.4 MG/DL (8.8-10.2); CREATININE FOR GFR 1.12 MG/DL (0.55-1.30); GLOMERULAR FILTRATION RATE 50.9 (>39); POTASSIUM SERUM 3.2 MEQ/L (3.5-5.1); TOTAL PROTEIN 6.8 GM/DL (6.4-8.2)
== END ==
LOC: M PLALAB 07:48
PROVIDERS: ATTEND Family Medicine
DX: R32 Unspecified urinary incontinence (principal); F03.90 Unspecified dementia, unspecified severity, without behavioral disturbance, psychotic disturbance, mood disturbance, and anxiety; Z86.39 Personal history of other endocrine, nutritional and metabolic disease

== ENCOUNTER → 2021-12-01 | Outpatient (CLI) | payer MEDICARE, OTHER ==
[2021-12-01 14:28] LABS: BASO # 0.1 10^3/uL (0.0-0.2); BASO % 0.6 % (0.0-1.0); EOS # 0.3 10^3/uL (0.0-0.5); EOS % 3.4 % (0.0-3.0); HEMATOCRIT 48.7 % (36.0-47.0); HEMOGLOBIN 16.5 g/dl (12.0-15.5); LYMPH # 1.9 10^3/uL (1.5-5.0); LYMPH % 21.6 % (24.0-44.0); MEAN CORPUSCULAR HEMOGLOBIN 31.9 pg (27.0-33.0); MEAN CORPUSCULAR HGB CONC 33.9 g/dl (32.0-36.5); MONO # 0.8 10^3/uL (0.0-0.8); MONO % 9.5 % (2.0-8.0); NEUTROPHILS # 5.7 10^3/uL (1.5-8.5); NEUTROPHILS % 64.3 % (36.0-66.0); PLATELET COUNT, AUTOMATED 263 10^3/uL (150-450); RED BLOOD COUNT 5.18 10^6/uL (4.00-5.40); WHITE BLOOD COUNT 8.9 10^3/uL (4.0-10.0)
[2021-12-01 14:57] LABS: ALT/SGPT 39 U/L (12-78); BILIRUBIN,TOTAL 0.8 MG/DL (0.2-1.0); BLOOD UREA NITROGEN 17 MG/DL (7-18); CALCIUM LEVEL 9.8 MG/DL (8.8-10.2); CARBON DIOXIDE LEVEL 33 MEQ/L (21-32); CHLORIDE LEVEL 98 MEQ/L (98-107); CREATININE FOR GFR 0.97 MG/DL (0.55-1.30); FERRITIN 127 NG/ML (8-252); GLOMERULAR FILTRATION RATE > 60.0 (>39); GLUCOSE, FASTING 141 MG/DL (70-100); LIPASE 204 U/L (73-393); NT-PRO BNP 22 PG/ML (<125); POTASSIUM SERUM 3.9 MEQ/L (3.5-5.1); SODIUM LEVEL 135 MEQ/L (136-145); TOTAL PROTEIN 7.5 GM/DL (6.4-8.2)
[2021-12-01 14:58] LABS: HEMOGLOBIN A1c 7.3 %
== END ==
LOC: M PLALAB 10:33
PROVIDERS: ATTEND Family Medicine
DX: I50.42 Chronic combined systolic (congestive) and diastolic (congestive) heart failure (principal); E11.9 Type 2 diabetes mellitus without complications

== ENCOUNTER → 2022-06-17 | Outpatient (CLI) | payer MEDICARE, OTHER ==
[2022-06-17 14:33] LABS: BASO # 0.1 10^3/uL (0.0-0.2); BASO % 0.7 % (0.0-1.0); EOS # 0.2 10^3/uL (0.0-0.5); EOS % 2.6 % (0.0-3.0); HEMATOCRIT 46.5 % (36.0-47.0); HEMOGLOBIN 15.6 g/dl (12.0-15.5); LYMPH # 1.8 10^3/uL (1.5-5.0); LYMPH % 22.7 % (24.0-44.0); MEAN CORPUSCULAR HEMOGLOBIN 31.7 pg (27.0-33.0); MEAN CORPUSCULAR HGB CONC 33.5 g/dl (32.0-36.5); MEAN CORPUSCULAR VOLUME 94.5 fl (80.0-96.0); MONO # 0.8 10^3/uL (0.0-0.8); MONO % 9.7 % (2.0-8.0); NEUTROPHILS # 5.2 10^3/uL (1.5-8.5); NEUTROPHILS % 63.9 % (36.0-66.0); PLATELET COUNT, AUTOMATED 246 10^3/uL (150-450); RED BLOOD COUNT 4.92 10^6/uL (4.00-5.40); WHITE BLOOD COUNT 8.1 10^3/uL (4.0-10.0)
[2022-06-17 15:39] LABS: ALBUMIN 3.8 G/DL (3.2-5.2); BILIRUBIN,TOTAL 0.7 MG/DL (0.3-1.2); CALCIUM LEVEL 9.7 MG/DL (8.3-10.6); CHOLESTEROL RISK RATIO 3.15 (<5); CREATININE FOR GFR 0.99 MG/DL (0.55-1.30); FREE T4 0.98 NG/DL (0.89-1.76); GLOMERULAR FILTRATION RATE 58.5 (>39); HDL CHOLESTEROL 38.4 MG/DL (>40); LDL CHOLESTEROL 44.6 MG/DL (<100); NON-HDL-C 82.6 MG/DL; POTASSIUM SERUM 3.8 MMOL/L (3.5-5.1); THYROID STIMULATING HORMONE 1.648 uIU/ML (0.55-4.78); TOTAL PROTEIN 7.1 G/DL (5.7-8.2)
== END ==
LOC: M PLALAB 09:32
PROVIDERS: ATTEND Family Medicine
DX: E53.8 Deficiency of other specified B group vitamins (principal); E11.9 Type 2 diabetes mellitus without complications; I11.0 Hypertensive heart disease with heart failure; E78.2 Mixed hyperlipidemia; I50.42 Chronic combined systolic (congestive) and diastolic (congestive) heart failure

== ENCOUNTER → 2022-06-18 | Outpatient (REF) | payer MEDICARE, OTHER | LOC: M SFHCPLAZ 08:49 | PROVIDERS: ATTEND Family Medicine | DX: E78.2 Mixed hyperlipidemia (principal); E53.8 Deficiency of other specified B group vitamins; E11.9 Type 2 diabetes mellitus without complications; I10 Essential (primary) hypertension; Z53.9 Procedure and treatment not carried out, unspecified reason ==

== ENCOUNTER → 2022-08-30 | Outpatient (REF) | payer MEDICARE, OTHER ==
[~2022-08-30] MED LIST changes: +SENN-111 PO; -SENN18TA PO
[2022-08-30 17:43] LABS: APPEARANCE, URINE CLEAR (CLEAR); BACTERIA, URINE AUTO NEGATIVE (NEGATIVE); BILIRUBIN, URINE AUTO NEGATIVE (NEGATIVE); BLOOD, URINE BLOOD NEGATIVE (NEGATIVE); COLOR, URINE YELLOW (YELLOW); GLUCOSE, URINE (UA) AUTO NEGATIVE (NEGATIVE); KETONE, URINE AUTO NEGATIVE (NEGATIVE); LEUKOCYTE ESTERASE, URINE AUTO NEGATIVE (NEGATIVE); MUCUS, URINE SMALL (NEGATIVE); NITRITE, URINE AUTO NEGATIVE (NEGATIVE); PROTEIN, URINE AUTO NEGATIVE (NEGATIVE); RBC, URINE AUTO 0 /HPF (0-3); SQUAMOUS EPITHELIAL CELL UR AU 0 /HPF (0-6); UROBILINOGEN, URINE AUTO 0.2 mg/dL (0.0-2.0); WBC, URINE AUTO 0 /HPF (0-3)
== END ==
LOC: M SFHCPLAZ 17:22
PROVIDERS: ATTEND Family Medicine
DX: N39.0 Urinary tract infection, site not specified (principal)

== ENCOUNTER → 2022-12-28 | Outpatient (CLI) | payer MEDICARE, OTHER ==
[2022-12-28 19:14] LABS: HEMATOCRIT 44.5 % (36.0-47.0); HEMOGLOBIN 15.3 g/dl (12.0-15.5); MEAN CORPUSCULAR HEMOGLOBIN 31.9 pg (27.0-33.0); MEAN CORPUSCULAR HGB CONC 34.4 g/dl (32.0-36.5); MEAN CORPUSCULAR VOLUME 92.9 fl (80.0-96.0); PLATELET COUNT, AUTOMATED 284 10^3/uL (150-450); RED BLOOD COUNT 4.79 10^6/uL (4.00-5.40); WHITE BLOOD COUNT 9.8 10^3/uL (4.0-10.0)
[2022-12-28 19:34] LABS: HEMOGLOBIN A1c 5.8 % (4.0-6.0)
[2022-12-28 19:47] LABS: ALBUMIN 3.8 G/DL (3.2-5.2); BILIRUBIN,TOTAL 0.6 MG/DL (0.3-1.2); CALCIUM LEVEL 10.1 MG/DL (8.3-10.6); CHOLESTEROL RISK RATIO 3.88 (<5); CREATININE FOR GFR 1.38 MG/DL (0.55-1.30); GLOMERULAR FILTRATION RATE 39.9 (>39); HDL CHOLESTEROL 35.5 MG/DL (>40); LDL CHOLESTEROL 72.3 MG/DL (<100); NON-HDL-C 102.5 MG/DL; POTASSIUM SERUM 4.4 MMOL/L (3.5-5.1); THYROID STIMULATING HORMONE 1.994 uIU/ML (0.55-4.78)
== END ==
LOC: M WUC 15:19
PROVIDERS: ATTEND Internal Medicine
DX: E78.5 Hyperlipidemia, unspecified (principal); F03.90 Unspecified dementia, unspecified severity, without behavioral disturbance, psychotic disturbance, mood disturbance, and anxiety; E11.9 Type 2 diabetes mellitus without complications

== ENCOUNTER → 2023-01-28 | Outpatient (CLI) | payer MEDICARE, OTHER ==
[2023-01-28 19:01] LABS: ALBUMIN 3.5 G/DL (3.2-5.2); BILIRUBIN,TOTAL 0.9 MG/DL (0.3-1.2); CALCIUM LEVEL 9.8 MG/DL (8.3-10.6); CHOLESTEROL RISK RATIO 3.93 (<5); CREATININE FOR GFR 1.15 MG/DL (0.55-1.30); GLOMERULAR FILTRATION RATE 49.2 (>39); HDL CHOLESTEROL 43.7 MG/DL (>40); LDL CHOLESTEROL 103.5 MG/DL (<100); NON-HDL-C 128.3 MG/DL; POTASSIUM SERUM 4.3 MMOL/L (3.5-5.1); TOTAL PROTEIN 7.2 G/DL (5.7-8.2)
[2023-01-28 19:06] LABS: HEMOGLOBIN A1c 6.4 % (4.0-6.0)
== END ==
LOC: M WUC 15:16
PROVIDERS: ATTEND Internal Medicine
DX: E78.5 Hyperlipidemia, unspecified (principal); E11.9 Type 2 diabetes mellitus without complications

== ENCOUNTER → 2023-05-02 | Outpatient (CLI) | payer MEDICARE, OTHER ==
[2023-05-02 18:25] LABS: ALBUMIN 3.5 G/DL (3.2-5.2); BILIRUBIN,TOTAL 0.7 MG/DL (0.3-1.2); CALCIUM LEVEL 8.9 MG/DL (8.3-10.6); CHOLESTEROL RISK RATIO 3.88 (<5); CREATININE FOR GFR 1.13 MG/DL (0.55-1.30); GLOMERULAR FILTRATION RATE 50.2 (>39); POTASSIUM SERUM 4.3 MMOL/L (3.5-5.1); TOTAL PROTEIN 6.7 G/DL (5.7-8.2)
[2023-05-02 18:30] LABS: HEMOGLOBIN A1c 6.4 % (4.0-6.0)
== END ==
LOC: M WUC 11:08
PROVIDERS: ATTEND Internal Medicine
DX: E78.5 Hyperlipidemia, unspecified (principal); R73.01 Impaired fasting glucose

== ENCOUNTER → 2023-11-02 | Outpatient (CLI) | payer MEDICARE, OTHER ==
[2023-11-02 17:45] LABS: HEMOGLOBIN A1c 6.7 % (4.0-6.0)
[2023-11-02 17:53] LABS: ALBUMIN 3.5 G/DL (3.2-5.2); BILIRUBIN,TOTAL 0.5 MG/DL (0.3-1.2); CALCIUM LEVEL 10.2 MG/DL (8.3-10.6); CHOLESTEROL RISK RATIO 4.05 (<5); CREATININE FOR GFR 1.41 MG/DL (0.55-1.30); GLOMERULAR FILTRATION RATE 38.8 (>39); HDL CHOLESTEROL 39.5 MG/DL (>40); LDL CHOLESTEROL 76.7 MG/DL (<100); NON-HDL-C 120.5 MG/DL; POTASSIUM SERUM 4.7 MMOL/L (3.5-5.1); TOTAL PROTEIN 7.3 G/DL (5.7-8.2)
== END ==
LOC: M WUC 11:40
PROVIDERS: ATTEND Internal Medicine
DX: E78.5 Hyperlipidemia, unspecified (principal); R73.01 Impaired fasting glucose